=== PATIENT | male | born 1930 | race Caucasian/White ===

== ENCOUNTER 2016-12-05 22:34 | Inpatient (IN) | payer OTHER, MEDICARE ==
[~2016-12-05] VITALS: Ht 170.2 cm; Wt 77.1 kg
[~2016-12-05 22:34] MED LIST: <VITAMIN> A + D1 APP TOP; ARICEPT 5MG TAB5 MG PO; ASPIRIN81 M4 PO; ATIVAN0.5 MG PO; ATROVENT HFA 121 PUF INH; AUGMENTIN 875875 MG PO; CARDIZEM 60 MG60 MG PO; CARDIZEM CD120 MG PO; CARDIZEM30 MG PO; CIPRO 500MG TA500 MG PO; CLARITIN10 MG PO; COLACE100 MG PO; COUGH100 MG/51 PO; DIAMOX125 MG PO; DOCUSATE SOD100 MG PO; DOCUSATE SODIU100 M3 PO; DUONEB 3 MG/3 ML3 ML INH/SOL; FAMOTIDINE20 MG PO; FLOVENT HF0.044 MG/A INH; FLOVENT1 PU1 INH; FOLIC ACID 1 MG PO; FOLIC ACID1 MG PO; FORMOTEROL PO; FUROSEMIDE20 MG PO; FUROSEMIDE40 MG PO; GOOD NEIGHBOR100 M5 PO; LASIX20 MG PO; LASIX40 M1 PO; LOPRESSOR50 MG PO; MAGNESIUM OXID400 M1 PO; MAGNESIUM OXID400 MG PO; MASON NATURAL325 MG PO; METOPROLOL TART25 M1 PO; MOMETASONE0.05 MG/Ac PO; MOXIFLOXACIN H400 M2 PO; MULTIPLE VITAMI1 TAB PO; MYCOSTATIN POWD15 GM TOP; NEURONTIN100 MG PO; NEURONTIN300 MG PO; NOVAPLUS V0.09 MG/Ac INH; OXYCODONE5 MG PO; POTASSIUM CHLO20 MEQ PO; PREDNISONE 20MG20 MG PO; PREDNISONE10 MG PO; PRILOSEC20 MG PO; PROTONIX 40MG T40 MG PO; SPIRIVA 18 MCG18 MCG INH; SYMBICORT 160/41 PUF INH; TRAZODONE50 MG PO; TYLENOL TAB 32325 MG PO; VITAB121000 PO; VITAMIN B-121000 MC3 PO; ZITHROMAX Z-PA250 M1 PO
--- NOTE | 2016-12-05 22:55 | NUR ---
TO ER VIA EMS PER [facility] PATIENT HAS BEEN LETHARGIC AND HAVING INCREASED SOB TREATED BY EMS W/ ALBUTEROL X2 IV MED LOCK EST RIGHT F/A BY EMS
--- NOTE | 2016-12-05 23:16 | RADIOLOGY REPORT ---
EXAMINATION: XR PORTABLE CHEST CLINICAL INFORMATION: Hypoxia, cough, confusion COMPARISON: 03/20/2016 TECHNIQUE: Portable view of the chest was obtained. FINDINGS: Lung volumes are symmetric. Mild retrocardiac airspace opacity is noted. The right lung appears clear. No evidence of pneumothorax, pleural effusion, or pulmonary edema. Linear scarring is noted in the left midlung. The cardiac silhouette is prominent. No acute osseous findings are seen. IMPRESSION: Mild retrocardiac airspace opacity, which may reflect atelectasis or developing consolidation in the proper clinical setting.
--- NOTE | 2016-12-05 23:25 | NUR ---
BLOOD DRAWN AND SENT TO LAB. LAV,SST,BLUE,KEANE,PINK. 1ST SET OF BLOOD CULTURES.
[2016-12-05 23:32] LABS: ABSOLUTE BASOPHIL COUNT 0 /CUMM (0.0-0.2); ABSOLUTE EOSINOPHIL COUNT 0 /CUMM (0.0-0.7); ABSOLUTE GRANULOCYTE CT 3.4 /CUMM (1.4-6.5); ABSOLUTE LYMPH COUNT 0.3 /CUMM (1.2-3.4); ABSOLUTE MONOCYTE COUNT 0.6 /CUMM (0.10-0.60); BASOPHIL % 0.2 % (0.0-2.0); EOSINOPHIL % 0.9 % (0-5); HEMATOCRIT 36.5 % (42-52); MEAN CORPUSCULAR HGB 28.4 PG (27.0-31.0); MEAN CORPUSCULAR HGB CONC 31.4 G/DL (33.0-37.0); MEAN CORPUSCULAR VOLUME 90.6 FL (80.0-94.0); MEAN PLATELET VOLUME 10.6 FL (7.4-10.4); PLATELET COUNT 62 /CUMM (130-400); RBC DISTRIBUTION WIDTH 19.9 % (11.5-14.5); RED BLOOD CELL CT 4.02 /CUMM (4.70-6.10); WHITE BLOOD CELL COUNT 4.3 /CUMM (4.8-10.8)
--- NOTE | 2016-12-05 23:35 | ED DYSPNEA/ASTHMA COMPLAINT ---
History of Present Illness General Chief Complaint: Dyspnea (COPD, CHF, Other) Stated Complaint: BIBA FOR RESP DISTRESS Source: patient, old records, EMS, [facility] Exam Limitations: clinical condition Vital Signs & Intake/Output Vital Signs & Intake/Output Vital Signs Date Time Temp Pulse Resp B/P Pulse O2 O2 Flow FiO2 Ox Delivery Rate 12/06 0030 98.5 96 22 95/50 89 Nasal 3.0L Cannula 12/06 0004 94 Nasal 2.5L Cannula 12/05 2306 130/60 12/05 2257 98.8 110 26 134/90 90 Nasal 3.0L Cannula ED Intake and Output 12/06 0000 12/05 1200 Intake Total Output Total Balance Patient 180 lb Weight Allergies Coded Allergies: lisinopril (Severe, MOUTH SWELLING 02/12/16) Penicillins (Intermediate, HIVES 02/12/16) lorazepam (HALLUCINATION 02/12/16) Reconcile Medications Aspirin (Aspirin*) 81 MG TAB.CHEW 81 MG PO DAILY heart health Budesonide/Formoterol Fumarate (Symbicort 160-4.5 Mcg Inhaler) 160 MCG-4.5 MCG/ ACTUATION HFA.AER.AD 2 MCG INH BID RESP (Reported) Cyanocobalamin (Vitamin B-12) 1,000 MCG TABLET 1 TAB PO DAILY SUPPLEMENT ( Reported) Docusate Sodium 100 MG CAPSULE 1 CAP PO DAILY CONSTIPATION (Reported) Ferrous Sulfate 325 MG (65 MG IRON) TABLET 325 MG PO D SUPPLIMENT (Reported) Furosemide (Lasix) 40 MG TABLET 1 TAB PO DAILY HYPERTENSION (Reported) Magnesium Oxide 400 MG TABLET 400 MG PO DAILY electrolyte abnormality Melatonin 3 MG TABLET 3 MG PO D PRN SLEEP (Reported) Metoprolol Tartrate 25 MG TABLET 1 TAB PO BID HYPERTENSION (Reported) Mirtazapine (Remeron) 15 MG TAB.RAPDIS 7.5 MG PO D PRN SLEEP (Reported) Moxifloxacin HCl 400 MG TABLET 400 MG PO DAILY lung infection Pantoprazole Sodium (Protonix) 20 MG TABLET.DR 40 MG PO D GI (Reported) Tiotropium [place] (Spiriva) 18 MCG CAP.W.DEV 18 MCG INH D RESP (Reported) Trazodone HCl 50 MG TABLET 12.5 MG PO D PRN SLEEP (Reported) Core Measure Meds Pre-Hospital aspirin, antibiotics Triage Note: [facility] DISTRESS AND LETHARGIC RECENT ADMISSION FOR PNEUMONIA Triage Nurses Notes Reviewed? yes Onset: Just prior to arrival Duration: hour(s):, constant, continues in ED, getting worse Timing: recent history Severity: moderate Activities at Onset: rest Prior Episodes/Possible Cause: illness exposure Associated Symptoms: cough, weakness HPI: 1 month prior to admission patient was treated for community-acquired pneumonia and discharged to [facility]. Prior to admission he was noted to be more confused and hypoxia continued cough decreased activity. There is no reported fever chills nausea vomiting diarrhea abdominal pain chest pain headache dysuria rash bleeding. Past History Travel History Traveled to [place] past 21 day No Medical History Any Pertinent Medical History? 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 No Review of Systems Review of Systems Constitutional: Reports: see HPI, weakness. EENTM: Reports: no symptoms. Respiratory: Reports: see HPI, cough, short of breath. Cardiovascular: Reports: no symptoms. GI: Reports: no symptoms. Genitourinary: Reports: no symptoms. Musculoskeletal: Reports: no symptoms. Skin: Reports: see HPI, rash. Neurological/Psychological: Reports: no symptoms. Hematologic/Endocrine: Reports: no symptoms. Immunologic/Allergic: Reports: no symptoms. All Other Systems: Reviewed and Negative Physical Exam Physical Exam General Appearance: well developed/nourished, alert, awake, moderate distress Head: atraumatic, normal appearance Eyes: Bilateral: normal appearance, PERRL, EOMI. Ears, Nose, Throat: normal pharynx, dry mucous membranes Neck: normal inspection, supple, full range of motion, no midline tenderness Respiratory: chest non-tender, decreased breath sounds, accessory muscle use, rhonchi Cardiovascular: regular rate/rhythm, normal peripheral pulses, tachycardia, norml femoral pulses equa Peripheral Pulses: 4+ carotid (R), 4+ carotid (L), 2+ radial (R), 2+ radial (L) Gastrointestinal: normal bowel sounds, soft, non-tender, no organomegaly Extremities: pedal edema, bilateral stasis dermatitis Neurologic/Psych: awake, supervisor extrusion II-XII nml as tested Skin: warm/dry Lymphatic: no anterior cervical harish Core Measures ACS in differential dx? No Severe Sepsis Present: No Septic Shock Present: No Progress Differential Diagnosis: AMI, bronchitis, CHF, pneumonia Plan of Care: Orders Procedure Date/time Status Regular Diet 12/07 B Active Nothing by Mouth 12/06 B Active CBC WITHOUT DIFFERENTIAL 12/06 0600 Active BASIC ELECTROLYTES PLUS BUN&CR 12/06 0600 Active Lab Add-on Test 12/06 0218 Active SWALLOW EVALUATION 12/06 0214 Active TRC EVALUATION (GEN) 12/06 0214 Active OXYGEN SETUP (GEN) 12/06 0214 Active Saline Lock 12/06 0214 Active Pathway - chart 12/06 0214 Active House Staff 12/06 0214 Active EKG 12/06 0214 Active Code Status 12/06 0214 Active CULTURE,URINE 12/06 0205 Active STREP PNEUMO URINARY ANTIGEN 12/06 0205 Active LEGIONELLA URINARY ANTIGEN 12/06 0205 Active LOWER RESPIRATORY CULTURE 12/06 0205 Active URINALYSIS 12/06 0205 Active ARTERIAL BLOOD GAS (GEN) 12/06 0151 Active Patient Data 12/06 0057 Active OXYGEN SETUP (GEN) 12/06 0015 Active Saline Lock 12/06 0015 Active Admit to inpatient 12/06 0015 Active Vital Signs 12/06 0015 Active Activity/Ambulation 12/06 0015 Active Code Status 12/06 0015 Complete Intake & Output 12/06 0003 Active VTE Mechanical Prophylaxis 12/06 UNK Active Vital Signs 12/06 UNK Active Precautions 12/06 UNK Active Intake & Output 12/06 UNK Active Thomas, Insertion/Removal/Asses 12/06 UNK Active ETHANOL 12/05 2320 Complete BLOOD CULTURE 12/05 2247 Active TROPONIN LEVEL 12/05 2247 Complete MAGNESIUM 12/05 2247 Complete COMPREHENSIVE METABOLIC PANEL 12/05 2247 Complete CBC WITHOUT DIFFERENTIAL 12/05 224 Complete EKG 01/14 2236 Active Current Medications Sig/Linda Start time Last Medication Dose Stop Time Status Admin Acetaminophen 650 MG Q6P PRN 12/06 214 AC (Tylenol) Ibuprofen 600 MG Q6P PRN 12/06 214 CAN (Motrin) Sodium Chloride 1,000 ML Q10H 12/06 214 AC (Normal Saline 0.9%) 12/06 1214 Laboratory Tests 12/05/16 2320: Anion Gap 12, Estimated GFR 32 L, BUN/Creatinine Ratio 18.0, Glucose 99, Calcium 8.7, Magnesium 1.5 L, Total Bilirubin 1.4 H, AST 58, ALT 26, Alkaline Phosphatase 121, Troponin I 0.07, Total Protein 8.8 H, Albumin 3.6, Globulin 5.2 H, Albumin/Globulin Ratio 0.7 L, CBC w Diff NO MAN DIFF REQ, RBC 4.02 L, MCV 90.6, MCH 28.4, RDW 19.9 H, MPV 10.6 H, Gran % 79.0 H, Lymphocytes % 6.3 L, Monocytes % 13.6 H, Eosinophils % 0.9, Basophils % 0.2, Absolute Granulocytes 3.4, Absolute Lymphocytes 0.3 L, Absolute Monocytes 0.6, Absolute Eosinophils 0, Absolute Basophils 0, PUBS MCHC 31.4 L, Serum Alcohol < 10.0 12/05/16 2310: Serum Alcohol Cancelled Microbiology 12/06 204 URINE ROUT: Legionella Antigen - ORD 12/06 204 URINE ROUT: Streptococcus pneumoniae Antigen (M - ORD 12/06 204 URINE ROUT: Urine Culture - ORD 12/06 204 LOWER RESP: Respiratory Culture - ORD 12/06 204 LOWER RESP: Gram Stain - ORD 12/05 2354 BLOOD: Blood Culture - RECD 12/05 2319 BLOOD: Blood Culture - RECD CXR Impression: retrocardiac infiltrate Initial ED EKG: RBBB Rhythm Strip: sinus tachycardia Departure Departure Time of Disposition: 7 Disposition: STILL A PATIENT Condition: Stable Clinical Impression Primary Impression: Pneumonia Qualifiers: Pneumonia type: due to unspecified organism Laterality: left Lung location: lower lobe of lung Qualified Code: J18.1 - Lobar pneumonia, unspecified organism Secondary Impressions: Acute renal insufficiency Referrals: VALENTE MERAZ,FRANSISCO Peterson (PCP/Family) Departure Forms: Customer Survey General Discharge Information Admission Note Spoke With: KIRSTIE JARVIS MD Documentation of Exam: Documentation of any treatments & extenuating circumstances including Concerns Regarding Discharge (functional status, medication knowledge or non-compliance, living conditions, etc.) that warrant an admission rather than observation: Supplemental oxygen IV antibiotics IV steroids gentle IV hydration IV fluids medication adjustment continuing care discharge planning Critical Care Note Critical Care Note Critical Care Time: non-applicable
[2016-12-06] MEDS ORDERED: FERROUS SULFAT325 M3 PO (00:17)
[2016-12-06] MEDS ORDERED: PROTONIX20 M1 PO (00:19)
[2016-12-06] MEDS ORDERED: SPIRIVA18 MCG INH (00:20)
[2016-12-06] MEDS ORDERED: SYMBICORT 16010.2 GM INH (00:22)
[2016-12-06] MEDS ORDERED: REMERON15 M2 PO (00:23)
[2016-12-06] MEDS ORDERED: TRAZODONE HCL50 M1 PO (00:27)
[2016-12-06] MEDS ORDERED: MELATONIN3 M4 PO (00:28)
--- NOTE | 2016-12-06 00:50 | NUR ---
O2 SAT 89-90 % NC INCRESED TO 4L/MIN SAT 93-94 %
--- NOTE | 2016-12-06 01:08 | History & Physical ---
[facility] 0108: General Information and HPI MD Statement: I have seen and personally examined SOURAV WARD and documented this H&P. The patient is a 86 year old M who presented with a patient stated chief complaint of [desaturation, lethargy, upper extremity twicthing]. Source of Information: patient, [facility] Exam Limitations: unable to give history, clinical condition History of Present Illness: 86-year-old male, senior living resident, with PMH of paroxysmal atrial fibrillation, HTN, HFPeF, COPD on 3L oxygen, myelodysplastic syndrome, history of alcohol dependence/withdrawal, hepatitis C, cor pulmonale, presented for lethargy, desaturation, and upper extremities twiching. Pt was lethargic, and unable to stay awake for history and physical exam. Most of the history was obtained from W[facility], previous medical records. The resident spoke with the nurse from the senior living. At baseline, pt is verbal and able to communicate. Today, his O2 sat went as low as 72%, and he has new upper extremities twitching. He has hx of PNA, and sputum has grown moraxella catarrhalis, pantoea agglomerans, serratia marcescens, streptococcus pneumoniae, and yeast in the past. He was recently admitted at [facility] on Nov 03, 2016, for pneumonia, for which he was given moxifloxacin, as per ED physician. His last echo was in February 2016, and showed EF 50-55%. Allergies/Medications Allergies: Coded Allergies: lisinopril (Severe, MOUTH SWELLING 02/12/16) Penicillins (Intermediate, HIVES 02/12/16) lorazepam (HALLUCINATION 02/12/16) Home Med list Aspirin (Aspirin*) 81 MG TAB.CHEW 81 MG PO DAILY heart health Budesonide/Formoterol Fumarate (Symbicort 160-4.5 Mcg Inhaler) 160 MCG-4.5 MCG/ ACTUATION HFA.AER.AD 2 MCG INH BID RESP (Reported) Cyanocobalamin (Vitamin B-12) 1,000 MCG TABLET 1 TAB PO DAILY SUPPLEMENT ( Reported) Docusate Sodium 100 MG CAPSULE 1 CAP PO DAILY CONSTIPATION (Reported) Ferrous Sulfate 325 MG (65 MG IRON) TABLET 325 MG PO D SUPPLIMENT (Reported) Furosemide (Lasix) 40 MG TABLET 1 TAB PO DAILY HYPERTENSION (Reported) Melatonin 3 MG TABLET 3 MG PO D PRN SLEEP (Reported) Metoprolol Tartrate 25 MG TABLET 1 TAB PO BID HYPERTENSION (Reported) Mirtazapine (Remeron) 15 MG TABLET 7.5 MG PO AT BEDTIME PRN SLEEP (Reported) Pantoprazole Sodium (Protonix) 20 MG TABLET.DR 40 MG PO D GI (Reported) Tiotropium [place] (Spiriva) 18 MCG CAP.W.DEV 18 MCG INH D RESP (Reported) Trazodone HCl 50 MG TABLET 12.5 MG PO D PRN SLEEP (Reported) Past History Travel History Traveled to [place] past 21 day No Medical History Neurological: SHINGLES EENT: NONE Cardiovascular: AFIB, hypertension, hyperlipidemia, HFPeF Respiratory: COPD, MRSA PNA (-MRSA) Gastrointestinal: peptic ulcer disease Hepatic: hepatitis C Renal: NONE Musculoskeletal: NONE Psychiatric: alcohol dependence, IV drug abuse, 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 Extended Care Facility Services at Home: Oxygen Primary Language: [place] Living Will? no Power of Machine Lead Burner/HCP? no Functional Ability ADLs Needs Assist: dressing, eating, toileting, bathing. Ambulation: wheelchair IADLs Independent: telephone. Needs Assist: shopping, housework, finances, food prep, transportation. Unknown: medication admin. Review of Systems Review of Systems Constitutional: Reports: see HPI (unable to obtain ROS). Exam & Diagnostic Data Last 24 Hrs of Vital Signs/I&O Vital Signs Date Time Temp Pulse Resp B/P Pulse O2 O2 Flow FiO2 Ox Delivery Rate 12/06 0245 89 92 12/06 225 99.4 94 32 100/80 89 Nasal 4.0L Cannula 12/06 219 94 BIPAP 40% 12/06 29 98.5 96 22 95/50 89 Nasal 3.0L Cannula 12/06 0004 94 Nasal 2.5L Cannula 12/056 130/60 01/14 2257 98.8 110 26 134/90 90 Nasal 3.0L Cannula Intake & Output 12/06 0800 12/06 0000 12/05 1600 Intake Total Output Total Balance Patient 81.647 kg Weight Physical Exam General Appearance lethargic, unable to stay awake for history and physical exam Skin chronic venous stasis changes on both lower extremities. HEENT Mucous Membr. moist/pink, pupils pinpoint Neck JVD noted Cardiovascular Regular Rate, Normal S1, Normal S2 Lungs rhonchi heard, no wheezing. Abdomen Normal Bowel Sounds, noted some guarding especially in the lower abdomen. Neurological unable to assess. not following commands. Extremities cold extremities. , no palpable pulse on the right dorsalis pedis. 2 + left dorsalis pedis Last 24 Hrs of Labs/Rocco: Laboratory Tests 12/06/16 0230: Urinalysis MANY H, Urine Color RAYSHAWN, Urine Clarity CLEAR, Urine pH 5.5, Ur Specific [place] >= 1.030, Urine Protein 30 H, Urine Ketones TRACE H, Urine Nitrite NEG, Urine Bilirubin NEG@ICTO, Urine Urobilinogen 1.0, Ur Leukocyte Esterase NEG, Ur Microscopic SEDIMENT EXAMINED, Urine RBC 1-3, Urine WBC 1-3 H, Ur Epithelial Cells FEW, Hyaline Casts > 75 H, Urine Mucus MOD H, Urine Hemoglobin NEG, Urine Glucose NEG 12/06/16 0200: pH 7.30 *L, pCO2 69 *H, pO2 65 L, HCO3 34 H, ABG O2 Sat (Measured) 90.0 L, P- 50 (Temp Corrected) N, Carboxyhemoglobin 0.7 L, O2 Concentration % 3L, O2 Delivery Method N/C, Phlebotomy Draw Site RIGHT BRACHIAL 12/05/16 2320: Anion Gap 12, Estimated GFR 32 L, BUN/Creatinine Ratio 18.0, Glucose 99, Calcium 8.7, Phosphorus 4.8 H, Magnesium 1.5 L, Total Bilirubin 1.4 H, Direct Bilirubin 1.1 H, AST 58, ALT 26, Alkaline Phosphatase 121, Troponin I 0.07, Pro -B-Natriuretic Pept 47539 H, Total Protein 8.8 H, Albumin 3.6, Globulin 5.2 H , Albumin/Globulin Ratio 0.7 L, CBC w Diff NO MAN DIFF REQ, RBC 4.02 L, MCV 90.6, MCH 28.4, RDW 19.9 H, MPV 10.6 H, Gran % 79.0 H, Lymphocytes % 6.3 L, Monocytes % 13.6 H, Eosinophils % 0.9, Basophils % 0.2, Absolute Granulocytes 3.4, Absolute Lymphocytes 0.3 L, Absolute Monocytes 0.6, Absolute Eosinophils 0 , Absolute Basophils 0, PUBS MCHC 31.4 L, Serum Alcohol < 10.0 12/05/16 2310: Serum Alcohol Cancelled Microbiology 12/06 229 URINE ROUT: Legionella Antigen - RES 12/06 023 URINE ROUT: Streptococcus pneumoniae Antigen (M - RES 12/06 229 URINE ROUT: Urine Culture - RES 12/06 020 LOWER RESP: Respiratory Culture - ORD 12/06 204 LOWER RESP: Gram Stain - ORD 12/05 2354 BLOOD: Blood Culture - RECD 12/05 2319 BLOOD: Blood Culture - RECD Assessment/Plan Assessment: 86-year-old male, senior living resident, with PMH of paroxysmal atrial fibrillation, HTN, HFPeF, COPD on 3L oxygen, MDS, history of alcohol dependence/ withdrawal, hepatitis C, cor pulmonale, presented for lethargy, desaturation, and upper extremities twiching. # Acute on chronic hypercapneic and hypoxic respiratory failure, secondary to pneumonia vs unintentional opiate overdose - Given 1 time ceftaz and azithro in ED - Given 1 time 125 mg solumedrol in ED - ABG 7.30/69H/65L/34 * Start moxifloxacin * Follow BCX2, LRC, urine legionella, urine strep pneumo, UA, UC * Follow urine toxicology, serum alcohol < 10 * Place on BIPAP, * pt need a sitter due to hx of agitation with bipap in the past * Repeat ABG 5am * Consider head CT if lethargy does not improve * Obtain consult with Dr. Bajwa in am * TRC/nebs * Mucinex 600bid * NPO due to lethargy. Swallow evaluation in am # Upper extremities twiching, unlikely seizure - Mag 1.5 * Replete mag with 1 gm mag sulfate * Consider neuro consult # Abdominal tenderness - T bili 1.4 H, direct bili 1.1 H * Consider CT abd and pelvis if continues to be tender * Follow bilirubin levels * Consider RUQ US # Acute on chronic heart failure, hypotension - Pro-BNP 57027 - Last Echo February 2016, EF 55% * Consider repeat echo * Continue lasix 40 daily (watch cr and BP) * Hold metoprolol if SBP <100 * Received about 300ml of NS * cardio consult in am # Acute kidney injury - BUN/Cr: 36H/2H - Jul 2016: 20/1.2 * Follow kidney functions # Pancytopenia due to myelodysplastic syndrome # Hypertension, paroxysmal atrial fibrillation * Continue metoprolol 25 bid (hold if hypotensive) # Other home meds * Continue docusate 100 daily * Continue pantoprazole 40 mg daily * Continue aspirin 81mg daily * Continue trazodone 12.5mg, mirtazapine 7.5 mg, melatonin 3 mg at bedtime Diet: NPO due to lethargy DVT ppx: [facility] FULL CODE As Ranked By This Provider Problem List: 1. Acute respiratory failure 2. Hypomagnesemia 3. Acute renal insufficiency Core Measures/Miscellaneous Acute Coronary Syndrome ACS Diagnosis: No Cerebrovascular Accident CVA/TIA Diagnosis: No Congestive Heart Failure CHF Diagnosis: Yes Venous Thromboembolism VTE Risk Factors: Acute medical illness, Age > 40 VTE Prophylaxis Ordered Inpt: Mechanical (ALPS/TEDS) [facility] d/t: No contraindications No VTE Pharm Prophylaxis d/t: No contraindications, Medical contraindication VTE Diagnosis: No VTE Type: NONE VTE Confirmed by (Test): NONE Severe Sepsis Severe Sepsis Present: No Septic Shock Septic Shock Present: No Miscellaneous Documentation Attending Case Discussed With: MATHEUS MERAZ,KIRSTIE Primary Care Physician: FRANSISCO VICTOR MD Patient sees these Specialists Dr Bajwa pulmonology Level of Patient Care: General Medicine SA SHAJIUD 12/06/16 0512: Resident Review Statement Resident Statement: examined this patient, discussed with international organizer, agreed with international organizer, reviewed EMR data (avail), discussed with nursing, reviewed images, amended to note Other Findings: This is 86-year-old male, senior living resident, with past medical history of paroxysmal atrial fibrillation, hypertension, history of alcohol dependence/ withdrawal, hepatitis C, cor pulmonale, COPD on 3L oxygen, myelodysplastic syndrome, presented for lethargy, difficulty breathing, desaturation, and upper extremities twiching. According to the senior living staff patient was desaturated to 72% and altered mental status and he become nonverbal. According to them his baseline is alert, oriented 3 very verbal. Multiple attempts together history from the patient or asking the patient to follow command was unsuccessful. Last admission was in February 2016 for lightheaded loss of consciousness and head trauma. Physical examination, lab and imaging as above. Problem list: -Hospital-acquired pneumonia -Acute and chronic respiratory failure -Altered mental status due to acute on chronic respiratory failure -Acute kidney injury -Pancytopenia due to MDS -Hypomagnesemia Plan: -Admit patient to general medicine floor -Vitals every shift, strict AMERICA's, aspiration precaution -Start the patient on IV moxifloxacin daily -TRC nebs as needed, repeat EKG -Keep the patient nothing by mouth, swallowing evaluation. -Blood, urine and sputum culture, strep and Legionella urine antigen -Place the patient on BiPAP, repeat ABG 2 hours after -1 GM IV magnesium supplement and recheck magnesium in the morning -Repeat CBC, basic electrolyte in the morning, check INR -Continue home medication including Spiriva, Symbicort -Pulmonary consultation, cardiology consultation in a.m. -One-to-one sitter during BiPAP session -Pain pathway -DVT prophylaxis: Alps -Full code MATHEUS MERAZ, [facility] 12/06/16 0613: Attending MD Review Statement Attending Statement Attending MD Statement: examined this patient, discuss w/resident/PA/[employer], agreed w/resident/PA/[employer] Attending Assessment/Plan: 86 yo M from [facility], with h/o Hep C, alcohol abuse, HTN, COPD on 3L, pulmonary HTN, paroxysmal Afib, ?MDS, previous biventricular heart failure, last admitted for COPDE (February 2016) is sent in for lethargy, tachypnea and hypoxia ( desated to 72% at SNF). Patient was noted to unresponsive on our evaluation. Stat ABG showed respiratory acidosis with hypoxemia, so he was placed on Bipap. Patient did not provide any info. Per ER physician, patient was recently admitted to [facility] (Oct 2016) for pneumonia. Previous sputum has grown moraxella catarrhalis, pantoea agglomerans, serratia marcescens, streptococcus pneumoniae. Vitals: afebrile, tachycardic, BP 100/80, sats 89% on 4L, tachypneic. Exam: noted to have upper extremity twitching, awake, opens eyes to verbal stimuli, pupils are 2 mm sluggishly RTL, Chest b/l rhonchi, no wheeze. LE: difficult to palpate dorsalis pedis on RLE. No LE edema. Labs: WBC 4.3, Plt 62, bicarb 39, BUN 36, creat 2.0, Mag 1.5, proBNP 98325, UA/Utox neg, AB.30/69/65/34. CXR: mild retrocardiac opacity. Echo (2016): EF 50-55%, flattened septum with RV pressure overload. RVSP 60 mmHg. 1. Acute on chronic hypoxic and hypercarbic respiratory failure 2/2 possible HCAP and severe pulmonary hypertension with cor pulmonale due to severe COPD. Cannot rule out right heart failure. Daily weight, strict I/O, panculture, TRC nebs, recheck ABG in 2 hours, IV moxifloxacin based on previous sputum cultures, Pulm and Cardio consult in AM. Sitter protocol while patient is on Bipap. CT head in AM. NPO for now. Serial EKG to rule out ACS. Replete electrolytes. Holding off on IV lasix for now. 2. RYAN. Gentle hydration and recheck BUN/creat. Resume home lasix once able. 3. Thrombocytopenia/pancytopenia 2/2 MDS. DVT ppx Alps. Full code.
--- NOTE | 2016-12-06 01:26 | NUR ---
HOUSESTAFF IN TO EVALUATE
--- NOTE | 2016-12-06 01:40 | NUR ---
REPORT GIVEN N/S HUNG AT 100 ML/HR
--- NOTE | 2016-12-06 01:49 | NUR ---
PT'S ASSIGNMENT 234
[2016-12-06 02:26] VITALS: BP 100/80
--- NOTE | 2016-12-06 04:07 | NUR ---
LATE ENTRY NURSING NOTE: PT ARRIVED TO A VIA STRETCHER @ 0200. PT DROWSY/AROUSABLE. UNABLE TO FOLLOW COMMAND, SPEECH GARBLED. BREIF IN PLACE FOR INCONTINENCE - SATURATED. 3L NC IN PLACE - O2SAT 88% UPON ARRIVAL. O2 INCREASED TO 5L NC - RESP MADE AWARE. MD MYRON SHEEHAN, MD REN GIRARD BOTH REPORTED TO BEDSIDE. ORDER PLACED FOR MANCINI, MANCINI INSERTED. ADMISSION ASSESSMENT COMPLETED. MULTIPLE SCABS NOTED TO BILAT SHOULDERS AND R GROSSMAN. COCCYX FOUND TO BE PURPLE/NON BLANCHABLE. WOUND CONSULT PLACED W NIKI. NO R PEDAL PULSE NOTED - DOPPLE USED & AUDIBLE PULSE FOUND. RR @ 30 W USE OF ACCESSORY MUSCLES - MD AWARE. PT TRANSITIONED TO BIPAT 40%. ABG COMPLETED. RN WILL CONTINUE TO MONITOR.
--- NOTE | 2016-12-06 06:07 | Admission Certification ---
Admission Certification Certification Statement - As attending physician, I certify that at the time of - admission, based on clinical presentation, severity of - symptoms, need for further diagnostic testing and - therapeutic interventions, and risk of adverse outcomes - without in-hospital treatment, in my clinical assessment, - this patient requires an acute hospital stay for a minimum - of two nights or longer. I have also considered psychsocial - factors such as support system, advanced age, financial - issues, cognitive issues, and failed out-patient treatments, - past re-admission history, safety of patient, and lack of - compliance as applicable. Specific rationale supporting this admission is: Acute on chronic hypoxemic and hypercarbic respiratory failure.
--- NOTE | 2016-12-06 06:48 | NUR ---
NURSING NOTE: PER MD MYRON SHEEHAN, STOP IVF. PT'S BP 98/58 HR 72 TEMP 97.4 RR 28 O2SAT 92% ON 40% BIPAP. MD MYRON SHEEHAN AWARE. RN WILL MONITOR.
[2016-12-06 06:55] VITALS: BP 98/58
--- NOTE | 2016-12-06 07:30 | NUR ---
PT ALERT AND PULLING OFF BIPAP AND COMBATIVE WHEN ATTEMPTING TO OBTAIN EKG DESPITE SITTER AT BEDSIDE. MD NOTIFIED, BILATERAL UPPER RESTRAINTS ORDERED, AND PLACED ON PT. WILL CONTINUE TO MONITOR.
--- NOTE | 2016-12-06 07:45 | NUR ---
PT LEFT FLOOR VIA STRETCHER TO CT SCAN, SITTER AT BEDSIDE, ON 45% VENTI MASK O2 @ 91%.
--- NOTE | 2016-12-06 08:00 | NUR ---
STRING TOP SEALER NOTIFIED THIS RN, PT INCREASINGLY CONBATIVE, SWINGING FISTS AND THREATENING STAFF. UNABLE TO OBTAIN CT SCAN, PT ARRIVED BACK TO FLOOR. BIPAP PLACED ON PT @ 40% AND BILATERAL UPPER WRIST RESTRAINTS APPLIED, SITTER @ BEDSIDE. MD MCKEON AWARE. WILL CONTINUE TO MONITOR
[2016-12-06 08:33] LABS: PT 13.4 SEC (9.4-12.5)
[2016-12-06 10:22] LABS: ABSOLUTE BASOPHIL COUNT 0 /CUMM (0.0-0.2); ABSOLUTE EOSINOPHIL COUNT 0 /CUMM (0.0-0.7); ABSOLUTE GRANULOCYTE CT 2.2 /CUMM (1.4-6.5); ABSOLUTE LYMPH COUNT 0.1 /CUMM (1.2-3.4); ABSOLUTE MONOCYTE COUNT 0 /CUMM (0.10-0.60); BASOPHIL % 0 % (0.0-2.0); EOSINOPHIL % 0.1 % (0-5); GRANULOCYTE % 93.2 % (42.2-75.2); HEMATOCRIT 33.4 % (42-52); MEAN CORPUSCULAR HGB 28.8 PG (27.0-31.0); MEAN PLATELET VOLUME 10.7 FL (7.4-10.4); PLATELET COUNT 54 /CUMM (130-400); RBC DISTRIBUTION WIDTH 19.7 % (11.5-14.5); RED BLOOD CELL CT 3.71 /CUMM (4.70-6.10); WHITE BLOOD CELL COUNT 2.4 /CUMM (4.8-10.8)
--- NOTE | 2016-12-06 10:33 | NUR ---
PT UNCOOPERATIVE, ASP RISK, NPO, HELD AM PO MEDS PER MD MCKEON. WILL CONTINUE TO MONITOR.
--- NOTE | 2016-12-06 11:24 | Cons- Pulmonary ---
General Information and HPI Consulting Request Date of Consult: 12/06/16 Requested By: med team History of Present Illness: 86-year-old male, detention resident, with PMH of paroxysmal atrial fibrillation, HTN, HFPeF, COPD on 3L oxygen, myelodysplastic syndrome, history of alcohol dependence/withdrawal, hepatitis C, cor pulmonale, presented for lethargy, desaturation, and upper extremities twiching. Pt was lethargic, and unable to stay awake for history and physical exam. Most of the history was obtained from [facility], previous medical records. The resident spoke with the nurse from the detention. At baseline, pt is verbal and able to communicate. Today, his O2 sat went as low as 72%, and he has new upper extremities twitching. He has hx of PNA, and sputum has grown moraxella catarrhalis, pantoea agglomerans, serratia marcescens, streptococcus pneumoniae, and yeast in the past. His last echo was in February 2016, and showed EF 50-55%. Review of Systems Constitutional: Reports: see HPI (unable to obtain ROS). Allergies/Medications Allergies: Coded Allergies: lisinopril (Severe, MOUTH SWELLING 02/12/16) Penicillins (Intermediate, HIVES 02/12/16) lorazepam (HALLUCINATION 02/12/16) Home Med List: Aspirin (Aspirin*) 81 MG TAB.CHEW 81 MG PO DAILY heart health Budesonide/Formoterol Fumarate (Symbicort 160-4.5 Mcg Inhaler) 160 MCG-4.5 MCG/ ACTUATION HFA.AER.AD 2 MCG INH BID RESP (Reported) Cyanocobalamin (Vitamin B-12) 1,000 MCG TABLET 1 TAB PO DAILY SUPPLEMENT ( Reported) Docusate Sodium 100 MG CAPSULE 1 CAP PO DAILY CONSTIPATION (Reported) Ferrous Sulfate 325 MG (65 MG IRON) TABLET 325 MG PO D SUPPLIMENT (Reported) Furosemide (Lasix) 40 MG TABLET 1 TAB PO DAILY HYPERTENSION (Reported) Melatonin 3 MG TABLET 3 MG PO D PRN SLEEP (Reported) Metoprolol Tartrate 25 MG TABLET 1 TAB PO BID HYPERTENSION (Reported) Mirtazapine (Remeron) 15 MG TABLET 7.5 MG PO AT BEDTIME PRN SLEEP (Reported) Pantoprazole Sodium (Protonix) 20 MG TABLET.DR 40 MG PO D GI (Reported) Tiotropium Valdez (Spiriva) 18 MCG CAP.W.DEV 18 MCG INH D RESP (Reported) Trazodone HCl 50 MG TABLET 12.5 MG PO D PRN SLEEP (Reported) Review of Systems Review of Systems Constitutional: Reports: see HPI. 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 Extended Care Facility Services at Home: Oxygen Primary Language: Welsh Smoking Status: Unknown If Ever Smoked Living Will? no Power of Procurement Intern/HCP? no Functional Ability ADLs Needs Assist: dressing, eating, toileting, bathing. Ambulation: wheelchair IADLs Independent: telephone. Needs Assist: shopping, housework, finances, food prep, transportation. Unknown: medication admin. Exam & Diagnostic Data Last 24 Hrs of Vital Signs/I&O Vital Signs Date Time Temp Pulse Resp B/P Pulse O2 O2 Flow FiO2 Ox Delivery Rate 12/06 1012 110/60 12/06 0800 92 BIPAP 40% 12/06 0726 91 12/06 0655 97.3 72 28 98/58 92 BIPAP 12/06 0415 24 96 BIPAP 12/06 0245 89 92 12/06 0226 99.4 94 32 100/80 89 Nasal 4.0L Cannula 12/06 0220 94 BIPAP 40% 12/06 0030 98.5 96 22 95/50 89 Nasal 3.0L Cannula 12/06 0004 94 Nasal 2.5L Cannula 12/05 2306 130/60 12/05 2257 98.8 110 26 134/90 90 Nasal 3.0L Cannula Intake & Output 12/06 1600 12/06 0800 12/06 0000 Intake Total 450 Output Total 200 Balance 250 Intake, IV 450 Intake, Oral 0 Number 0 Bowel Movements Output, Urine 200 Patient 180 lb Weight Last 48 Hrs of Labs/Rocco: Laboratory Tests 12/06/16 0934: Lactic Acid 1.6, CBC w Diff MAN DIFF ORDERED, RBC 3.71 L, MCV 90.0, MCH 28.8, RDW 19.7 H, MPV 10.7 H, Gran % 93.2 H, Lymphocytes % 5.4 L, Monocytes % 1.3 L, Eosinophils % 0.1, Basophils % 0 L, Absolute Granulocytes 2.2, Absolute Lymphocytes 0.1 L, Absolute Monocytes 0 L, Absolute Eosinophils 0, Absolute Basophils 0, Platelet Estimate DECREASED, Polychromasia 1+, Basophilic Stippling 1+, Anisocytosis 1+, Stomatocytes 1+, PUBS MCHC 32.0 L 12/06/16 0741: Troponin I 0.06 12/06/16 0741: Anion Gap 11, Estimated GFR 34 L, BUN/Creatinine Ratio 21.1, Magnesium 1.8, Total Bilirubin 1.1, Direct Bilirubin 1.0 H, AST 43, ALT 23, Alkaline Phosphatase 101, Total Protein 7.5, Albumin 2.9 L, PT 13.4 H, INR 1.28 H 12/06/16 0530: pH 7.28 *L, pCO2 71 *H, pO2 91, HCO3 33 H, ABG O2 Sat (Measured) 96.0, P-50 ( Temp Corrected) N, Carboxyhemoglobin 0.2 L, O2 Concentration % .40, Respiration Rate 24, O2 Delivery Method BIPAP, Vent Mode ST, Expiratory Pressure 6, Inspiratory Pressure 18, Phlebotomy Draw Site RIGHT RADIAL 12/06/16 0230: Urine Opiates Screen 255.00, Methadone Screen 49, Barbiturate Screen < 60, Ur Phencyclidine Scrn < 6.00, Amphetamines Screen < 100, U Benzodiazepines Scrn < 85, Urine Cocaine Screen < 50, Urine Cannabis Screen < 5.00, Urinalysis MANY H, Urine Color RAYSHAWN, Urine Clarity CLEAR, Urine pH 5.5, Ur Specific [place] >= 1.030, Urine Protein 30 H, Urine Ketones TRACE H, Urine Nitrite NEG, Urine Bilirubin NEG@ICTO, Urine Urobilinogen 1.0, Ur Leukocyte Esterase NEG, Ur Microscopic SEDIMENT EXAMINED, Urine RBC 1-3, Urine WBC 1-3 H, Ur Epithelial Cells FEW, Hyaline Casts > 75 H, Urine Mucus MOD H, Urine Hemoglobin NEG, Urine Glucose NEG 12/06/16 0200: pH 7.30 *L, pCO2 69 *H, pO2 65 L, HCO3 34 H, ABG O2 Sat (Measured) 90.0 L, P- 50 (Temp Corrected) N, Carboxyhemoglobin 0.7 L, O2 Concentration % 3L, O2 Delivery Method N/C, Phlebotomy Draw Site RIGHT BRACHIAL 12/05/16 2320: Anion Gap 12, Estimated GFR 32 L, BUN/Creatinine Ratio 18.0, Glucose 99, Calcium 8.7, Phosphorus 4.8 H, Magnesium 1.5 L, Total Bilirubin 1.4 H, Direct Bilirubin 1.1 H, AST 58, ALT 26, Alkaline Phosphatase 121, Troponin I 0.07, Pro -B-Natriuretic Pept 29061 H, Total Protein 8.8 H, Albumin 3.6, Globulin 5.2 H , Albumin/Globulin Ratio 0.7 L, CBC w Diff NO MAN DIFF REQ, RBC 4.02 L, MCV 90.6, MCH 28.4, RDW 19.9 H, MPV 10.6 H, Gran % 79.0 H, Lymphocytes % 6.3 L, Monocytes % 13.6 H, Eosinophils % 0.9, Basophils % 0.2, Absolute Granulocytes 3.4, Absolute Lymphocytes 0.3 L, Absolute Monocytes 0.6, Absolute Eosinophils 0 , Absolute Basophils 0, PUBS MCHC 31.4 L, Serum Alcohol < 10.0 12/05/16 2310: Serum Alcohol Cancelled Assessment/Plan Impression/Plan: SIGNIFICANT DATA Chest x-ray showed? Retrocardiac opacity probable atelectasis versus consolidation Previous CT scan of the chest had shown bilateral infiltrates with emphysema Other blood work reviewed creatinine up to 2 no down to 1.9 baseline creatinine appears to be 1.2 potassium was 5.3 his bicarbonate baseline was 39 now down to 36 anion gap 11 his previous uric acid was high his liver enzymes appears unremarkable patient does have gallstones his BNP was 14,000 which was persistently elevated He does have persistent leukopenia with white count of 2.4 hemoglobin is 10.7 and he has significantly decreased platelets which has been consistent with previous episodes His ABG showed 7. initial ABG was 7. Previous sputum culture had Serratia which appeared to be multiresistant to multiple antibiotics including including ceftaz Physical Exam General Appearance lethargic, unable to stay awake for history and physical exam , does squeeze rt side and unable to squeeze left side Skin chronic venous stasis changes on both lower extremities. HEENT Mucous Membr. moist/pink, pupils pinpoint Neck JVD noted Cardiovascular Regular Rate, Normal S1, Normal S2 Lungs rhonchi heard, no wheezing. Abdomen Normal Bowel Sounds, noted some guarding especially in the lower abdomen. Neurological unable to assess. not following commands. Extremities cold extremities. , no palpable pulse on the right dorsalis pedis. 2 + left dorsalis pedis IMPRESSION This is a gentleman with severe COPD, significant alcohol use, previous history of biventricular heart failure, very severe pulmonary hypertension which appears to be secondarily related to severe COPD and previous left heart dysfunction from alcohol, hyponatremia, previous myelodysplastic syndrome, hence immunosuppressed, chronic thrombocytopenia, has the issues * Acute hypercarbic and hypoxic resp failure in a pt with endstage lung disease with left lower lobe infiltrate with worsening mental status. He has had recurrent hospitalizations and [facility], with previous history of multidrug resistant organisms * History of sig etoh and myelodysplasia and hence immunosuppressed * Severe COPD, mild wheezing * Worsening mental status due to hypercarbia and has myoclonic jerks needs to be followed * Severe pulmonary hypertension with cor pulmonale due to severe COPD and as well as previous left heart dysfunction * Pervious etoh withdrawal syndrome * CKD stage 4 with crystal * Electrolyte abnormalities * Previous history of nonischemic cardiomyopathy with low ejection fraction which seems to have improved recently, wiht previous history of afib, now ekg showing prob afib and pt now currently not a candidate for anticoag * Previous qtc prolongation RECOMMENDATION * Continue BiPAP * Assessment we'll status * Repeat ABG later * Swab nose for mrsa * One dose of vanco * IV moxi and if not avilable iv meropenam * Iv solumedrom 40 qd for now * Keep the head of bed elevated * Await blood cultures * Obtain a CT of the head when patient is able * Repeat EKG in the morning * Check his renal function this evening to evaluate his potassium * If these worsen needs to go to the ICU * Check his QT intervel daily * Replace mag today iv * Prob poor to guarded * Need to discuss goals of care with his poa Consult Acknowledgment - Thank you for your consult request.
[2016-12-06 11:57] VITALS: BP 110/60
--- NOTE | 2016-12-06 11:57 | NUR ---
SPEECH THERAPY: CONSULT FOR SWALLOW EVAL RECEIVED. CHART REVIEWED. PT ON BIPAP AT THIS TIME. UNABLE TO BE SEEN FOR SWALLOW EVAL. ST WILL F/U.
--- NOTE | 2016-12-06 12:10 | Cons- Cardiology ---
General Information and HPI Consulting Request Date of Consult: 12/06/16 Requested By: MATHEUS MERAZ,KIRSTIE Reason for Consult: Shortness of breath. Source of Information: old records Exam Limitations: unable to give history, clinical condition History of Present Illness: Mr. Adam Hendrix is an 86 year old male with a history of hypertension treated with beta radha and diuretic therapy, dyslipidemia, former heavy tobacco use, severe oxygen dependent COPD, severe pulmonary hypertension, history of previous intravenous drug abuse, heavy EtOH use, hepatitis C, myelodysplastic syndrome, pancytopenia, conduction disease (first-degree AV block, LAFB, RBBB) previous syncope, heart failure with previously documented LV dysfunction by echocardiography December 2014/nuclear stress testing July 2015 with subsequently documented preserved left ventricular systolic function, mild aortic stenosis, moderate concentric left ventricular hypertrophy, and presumed diastolic dysfunction who presented from his [facility] via ambulance for lethargy and progressive shortness of breath with tachypnea and CXR findings c/w mild retrocardiac airspace opacity, reflecting atelectasis vs a developing consolidation, a significantly elevated NT-PRO BNP, and evidence of acute kidney injury. Mr. Dixon can give no reliable history due to his clinical status, so the entire history is obtained from the medical record. Allergies/Medications Allergies: Coded Allergies: lisinopril (Severe, MOUTH SWELLING 02/12/16) Penicillins (Intermediate, HIVES 02/12/16) lorazepam (HALLUCINATION 02/12/16) Home Med List: Aspirin (Aspirin*) 81 MG TAB.CHEW 81 MG PO DAILY heart health Budesonide/Formoterol Fumarate (Symbicort 160-4.5 Mcg Inhaler) 160 MCG-4.5 MCG/ ACTUATION HFA.AER.AD 2 MCG INH BID RESP (Reported) Cyanocobalamin (Vitamin B-12) 1,000 MCG TABLET 1 TAB PO DAILY SUPPLEMENT ( Reported) Docusate Sodium 100 MG CAPSULE 1 CAP PO DAILY CONSTIPATION (Reported) Ferrous Sulfate 325 MG (65 MG IRON) TABLET 325 MG PO D SUPPLIMENT (Reported) Furosemide (Lasix) 40 MG TABLET 1 TAB PO DAILY HYPERTENSION (Reported) Melatonin 3 MG TABLET 3 MG PO D PRN SLEEP (Reported) Metoprolol Tartrate 25 MG TABLET 1 TAB PO BID HYPERTENSION (Reported) Mirtazapine (Remeron) 15 MG TABLET 7.5 MG PO AT BEDTIME PRN SLEEP (Reported) Pantoprazole Sodium (Protonix) 20 MG TABLET.DR 40 MG PO D GI (Reported) Tiotropium [place] (Spiriva) 18 MCG CAP.W.DEV 18 MCG INH D RESP (Reported) Trazodone HCl 50 MG TABLET 12.5 MG PO D PRN SLEEP (Reported) Review of Systems Review of Systems: A 14 point system review was attempted, but was unsuccessful given the patient's clinical status. 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 Extended Care Facility Services at Home: Oxygen Primary Language: Slovenian Smoking Status: Unknown If Ever Smoked Living Will? no Power of Bench Carpenter/HCP? no Functional Ability ADLs Needs Assist: dressing, eating, toileting, bathing. Ambulation: wheelchair IADLs Independent: telephone. Needs Assist: shopping, housework, finances, food prep, transportation. Unknown: medication admin. Exam & Diagnostic Data Vital Signs and I&O Vital Signs Date Time Temp Pulse Resp B/P Pulse O2 O2 Flow FiO2 Ox Delivery Rate 12/06 1012 110/60 12/06 0800 92 BIPAP 40% 12/06 0726 91 12/06 0655 97.3 72 28 98/58 92 BIPAP 12/06 0415 24 96 BIPAP 12/06 0245 89 92 12/06 0226 99.4 94 32 100/80 89 Nasal 4.0L Cannula 12/06 0220 94 BIPAP 40% 12/06 0030 98.5 96 22 95/50 89 Nasal 3.0L Cannula 12/06 0004 94 Nasal 2.5L Cannula 12/05 2306 130/60 12/05 2257 98.8 110 26 134/90 90 Nasal 3.0L Cannula Intake & Output 12/06 0812/06 0000 12/05 1600 12/05 0800 12/05 0000 Intake Total 450 Output Total 200 Balance 250 Intake, IV 450 Intake, Oral 0 Number 0 Bowel Movements Output, Urine 200 Patient 180 lb Weight Physical Exam: Elderly, unkempt appearing male in no acute distress with BiPAP mask in place. Vital signs: See above. HEENT: Normocephalic, atraumatic, moist mucous membranes. Neck: No JVD, no bruits. Lungs: Decreased breath sounds bilaterally, scattered rhonchi. Heart: S1, S2 (irregularly, irregular) with soft (grade 1-2/6) systolic murmur. No gallop or rub appreciated. PMI not well felt. Abdomen: Soft, nontender, positive bowel sounds. Extremities: No edema. Labs/Rocco Results: Laboratory Tests 12/06 12/06 12/06 0934 0741 0741 Chemistry Sodium (137 - 145 mmol/L) 140 Potassium (3.5 - 5.1 mmol/L) 5.3 H Chloride (98 - 107 mmol/L) 93 L Carbon Dioxide (22 - 30 mmol/L) 36 H Anion Gap (5 - 16) 11 BUN (9 - 20 mg/dL) 40 H Creatinine (0.7 - 1.2 mg/dL) 1.9 H Estimated GFR (>60 ml/min) 34 L BUN/Creatinine Ratio (7 - 25 %) 21.1 Lactic Acid (0.7 - 2.1 mmol/L) 1.6 Magnesium (1.6 - 2.3 mg/dL) 1.8 Total Bilirubin (0.2 - 1.3 mg/dL) 1.1 Direct Bilirubin (< 0.4 mg/dL) 1.0 H AST (17 - 59 U/L) 43 ALT (21 - 72 U/L) 23 Alkaline Phosphatase (< 127 U/L) 101 Troponin I (<0.11 ng/ml) 0.06 Total Protein (6.3 - 8.2 g/dL) 7.5 Albumin (3.5 - 5.0 g/dL) 2.9 L Coagulation PT (9.4 - 12.5 SEC) 13.4 H INR (0.90 - 1.17) 1.28 H Hematology CBC w Diff MAN DIFF ORDERED WBC (4.8 - 10.8 /CUMM) 2.4 L RBC (4.70 - 6.10 /CUMM) 3.71 L Hgb (14.0 - 18.0 G/DL) 10.7 L Hct (42 - 52 %) 33.4 L MCV (80.0 - 94.0 FL) 90.0 MCH (27.0 - 31.0 PG) 28.8 RDW (11.5 - 14.5 %) 19.7 H Plt Count (130 - 400 /CUMM) 54 L MPV (7.4 - 10.4 FL) 10.7 H Gran % (42.2 - 75.2 %) 93.2 H Lymphocytes % (20.5 - 51.1 %) 5.4 L Monocytes % (1.7 - 9.3 %) 1.3 L Eosinophils % (0 - 5 %) 0.1 Basophils % (0.0 - 2.0 %) 0 L Absolute Granulocytes (1.4 - 6.5 /CUMM) 2.2 Absolute Lymphocytes (1.2 - 3.4 /CUMM) 0.1 L Absolute Monocytes (0.10 - 0.60 /CUMM) 0 L Absolute Eosinophils (0.0 - 0.7 /CUMM) 0 Absolute Basophils (0.0 - 0.2 /CUMM) 0 Platelet Estimate (ADEQUATE) DECREASED Polychromasia 1+ Basophilic Stippling 1+ Anisocytosis 1+ Stomatocytes 1+ PUBS MCHC (33.0 - 37.0 G/DL) 32.0 L 12/06 12/06 0530 0230 Blood Gas pH (7.35 - 7.45 PH) 7.28 *L pCO2 (35 - 45 TORR) 71 *H pO2 (80 - 100 TORR) 91 HCO3 (21 - 28 MEQ/L) 33 H ABG O2 Sat (Measured) (>96.0 %) 96.0 P-50 (Temp Corrected) N Carboxyhemoglobin (1.5 - 5.0 %) 0.2 L O2 Concentration % .40 Respiration Rate (BPM) 24 O2 Delivery Method BIPAP Vent Mode ST Expiratory Pressure (CM H2O P) 6 Inspiratory Pressure (CM H2O P) 18 Miscellaneous Phlebotomy Draw Site RIGHT RADIAL Toxicology Urine Opiates Screen (>2000 NG/ML) 255.00 Methadone Screen (>300 NG/ML) 49 Barbiturate Screen (>200 NG/ML) < 60 Ur Phencyclidine Scrn (>25 NG/ML) < 6.00 Amphetamines Screen (>1000 NG/ML) < 100 U Benzodiazepines Scrn (>200 NG/ML) < 85 Urine Cocaine Screen (>300 NG/ML) < 50 Urine Cannabis Screen (>50 NG/ML) < 5.00 Urines Urinalysis MANY H Urine Color (YEL,AMB,STR) RAYSHAWN Urine Clarity (CLEAR) CLEAR Urine pH (5.0 - 8.0) 5.5 Ur Specific [place] (1.001 - 1.035) >= 1.030 Urine Protein (NEG,<30 MG/DL) 30 H Urine Ketones (NEG) TRACE H Urine Nitrite (NEG) NEG Urine Bilirubin (NEG) NEG@ICTO Urine Urobilinogen (0.1 - 1.0 EU/dl) 1.0 Ur Leukocyte Esterase (NEG) NEG Ur Microscopic SEDIMENT EXAMINED Urine RBC (0 - 5 /HPF) 1-3 Urine WBC (0 - 2 /HPF) 1-3 H Ur Epithelial Cells (NONE,FEW) FEW Hyaline Casts (0/LPF) > 75 H Urine Mucus (FEW,NONE) MOD H Urine Hemoglobin (NEG) NEG Urine Glucose (N MG/DL) NEG 12/06 12/05 0200 2320 Blood Gas pH (7.35 - 7.45 PH) 7.30 *L pCO2 (35 - 45 TORR) 69 *H pO2 (80 - 100 TORR) 65 L HCO3 (21 - 28 MEQ/L) 34 H ABG O2 Sat (Measured) (>96.0 %) 90.0 L P-50 (Temp Corrected) N Carboxyhemoglobin (1.5 - 5.0 %) 0.7 L O2 Concentration % 3L O2 Delivery Method N/C Chemistry Sodium (137 - 145 mmol/L) 142 Potassium (3.5 - 5.1 mmol/L) 5.1 Chloride (98 - 107 mmol/L) 92 L Carbon Dioxide (22 - 30 mmol/L) 39 H Anion Gap (5 - 16) 12 BUN (9 - 20 mg/dL) 36 H Creatinine (0.7 - 1.2 mg/dL) 2.0 H Estimated GFR (>60 ml/min) 32 L BUN/Creatinine Ratio (7 - 25 %) 18.0 Glucose (65 - 99 mg/dL) 99 Calcium (8.4 - 10.2 mg/dL) 8.7 Phosphorus (2.5 - 4.5 mg/dL) 4.8 H Magnesium (1.6 - 2.3 mg/dL) 1.5 L Total Bilirubin (0.2 - 1.3 mg/dL) 1.4 H Direct Bilirubin (< 0.4 mg/dL) 1.1 H AST (17 - 59 U/L) 58 ALT (21 - 72 U/L) 26 Alkaline Phosphatase (< 127 U/L) 121 Troponin I (<0.11 ng/ml) 0.07 Fap-H-Osbrmhzaxql Pept (<125 pg/mL) 19500 H Total Protein (6.3 - 8.2 g/dL) 8.8 H Albumin (3.5 - 5.0 g/dL) 3.6 Globulin (1.9 - 4.2 gm/dL) 5.2 H Albumin/Globulin Ratio (1.1 - 2.2 %) 0.7 L Hematology CBC w Diff NO MAN DIFF REQ WBC (4.8 - 10.8 /CUMM) 4.3 L RBC (4.70 - 6.10 /CUMM) 4.02 L Hgb (14.0 - 18.0 G/DL) 11.4 L Hct (42 - 52 %) 36.5 L MCV (80.0 - 94.0 FL) 90.6 MCH (27.0 - 31.0 PG) 28.4 RDW (11.5 - 14.5 %) 19.9 H Plt Count (130 - 400 /CUMM) 62 L MPV (7.4 - 10.4 FL) 10.6 H Gran % (42.2 - 75.2 %) 79.0 H Lymphocytes % (20.5 - 51.1 %) 6.3 L Monocytes % (1.7 - 9.3 %) 13.6 H Eosinophils % (0 - 5 %) 0.9 Basophils % (0.0 - 2.0 %) 0.2 Absolute Granulocytes (1.4 - 6.5 /CUMM) 3.4 Absolute Lymphocytes (1.2 - 3.4 /CUMM) 0.3 L Absolute Monocytes (0.10 - 0.60 /CUMM) 0.6 Absolute Eosinophils (0.0 - 0.7 /CUMM) 0 Absolute Basophils (0.0 - 0.2 /CUMM) 0 PUBS MCHC (33.0 - 37.0 G/DL) 31.4 L Miscellaneous Phlebotomy Draw Site RIGHT BRACHIAL Toxicology Serum Alcohol (<10 MG/DL) < 10.0 12/05 2310 Toxicology Serum Alcohol Cancelled Diagnostic Data EKG Results (12/06/2016) unknown, wide complex, irregular rhythm. Suspect sinusitis versus ectopic atrial rhythm with multiple APCs, right bundle branch block and nondiagnostic ST-T wave abnormalities in diffuse leads. CXR Results (12/05/2016)Mild retrocardiac airspace opacity, which may reflect atelectasis or developing consolidation in the proper clinical setting. Other Results Echocardiogram (03/15/2016) Normal size left ventricle. Borderline normal left ventricular ejection fraction estimated at 50-55%. Flattened septum in systole consistent with right ventricle pressure overload. Abnormal septal motion. Moderate right ventricular dilatation. Mild to moderate right atrial dilatation. Mild left atrial dilatation. Mild thickening/calcification of the anterior mitral valve leaflet. Mitral annular calcification. Mild mitral regurgitation. Trileaflet aortic valve. Diffuse thickening (sclerosis) of the aortic valve cusps without reduced excursion. Mild aortic stenosis. Tricuspid valve not well visualized, grossly normal. Moderate tricuspid regurgitation. Right ventricular systolic pressure estimated to be elevated at 60 mmHg. Pulmonic valve not well visualized, grossly normal. Mild pulmonic regurgitation. No pericardial effusion. Aortic root and proximal ascending aorta not well visualized, grossly normal. Assessment/Plan Assessment/Plan Mr. Hendrix is an elderly male with a history of hypertension treated with beta radha and diuretic therapy, dyslipidemia, former heavy tobacco use, severe oxygen dependent COPD, severe pulmonary hypertension, history of previous intravenous drug abuse, previous heavy EtOH use, hepatitis C, myelodysplastic syndrome, pancytopenia, conduction disease (first-degree AV block, LAFB, RBBB) previous syncope, heart failure with previously documented LV dysfunction by echocardiography December 2014/nuclear stress testing July 2015 with subsequently documented preserved left ventricular systolic function, mild aortic stenosis, moderate concentric left ventricular hypertrophy, and presumed diastolic dysfunction who presented with lethargy and progressive shortness of breath with tachypnea and CXR findings c/w mild retrocardiac airspace opacity, reflecting atelectasis vs a developing consolidation, a significantly elevated NT-PRO BNP, and evidence of acute kidney injury. His presentation is most consistent with an infectious/inflammatory pulmonary process, despite his elevated NT-PRO BNP. It needs to be recalled that plasma brain natruretic peptide (BNP) and N- terminal pro-BNP (NT-PRO BNP) are elevated in patients with heart failure, as well as in some patients without overt heart failure with a variety of conditions including renal failure, coronary artery disease, valvular heart disease, constrictive pericarditis, pulmonary hypertension, and sepsis. Mr. Raman has evidence of renal failure, pulmonary hypertension, possible sepsis, and previously documented valvular disease. It is also known that elevated levels of plasma BNP and NT-PRO BNP project and increased risk of cardiovascular events in various patient populations including those with and without prior symptomatic cardiac disease. Recommendations: * Consider transfer to telemetry given questionable rhythm, hyperkalemia, etc., follow-up troponins, repeat electrocardiogram. * Hold diuretic therapy for the short-term. * Consider cutting back on his beta 1 selective beta radha (metoprolol) given earlier hypotension for at least the short term. * Pulmonary consultation to guide TRC, oxygen use, antimicrobial therapy, steroid use, etc. * Consider repeat echocardiogram to reassess the patient's left ventricular systolic/diastolic function, degree of left ventricular hypertrophy, right ventricular function, estimated pulmonary systolic pressure, degree of aortic stenosis, etc. * Check free T4, TSH, glycosylated hemoglobin A1c. * Deep venous thrombosis prophylaxis. Consult Acknowledgment - Thank you for your consult request.
--- NOTE | 2016-12-06 14:42 | PN- Att Addend ---
Attending Addendum Attending Brief Note Patient seen and examined, revealing a BiPAP but not feeling well. He is confused and not able to K[place]y gait well. Patient is a 86-year-old male with past medical history significant for Hep C, alcohol abuse, HTN, COPD on 3L, pulmonary HTN, paroxysmal Afib, ?MDS, previous biventricular heart failure, last admitted for COPDE (February 2016) is sent in for lethargy, tachypnea and hypoxia, ADMITTED WITH Acute on chronic hypoxic and hypercarbic respiratory failure 2/2 possible HCAP and severe pulmonary hypertension with cor pulmonale due to severe COPD. Patient also has Acute renal failure, Hyperkalemia and has ectopic atrial rhythm with multiple PACs on the EKG. Vital Signs Date Time Temp Pulse Resp B/P Pulse O2 O2 Flow FiO2 Ox Delivery Rate 12/06 1223 Nasal 5.0L Cannula 12/06 1157 110/60 12/06 1012 110/60 12/06 0800 92 BIPAP 40% 12/06 0726 91 12/06 0655 97.3 72 28 98/58 92 BIPAP 12/06 0415 24 96 BIPAP 12/06 0245 89 92 12/06 0226 99.4 94 32 100/80 89 Nasal 4.0L Cannula 12/06 0220 94 BIPAP 40% 12/06 0030 98.5 96 22 95/50 89 Nasal 3.0L Cannula 12/06 0004 94 Nasal 2.5L Cannula 12/05 2306 130/60 12/05 2257 98.8 110 26 134/90 90 Nasal 3.0L Cannula on exam; awake, wearing BIPAP. cv; s1,s2, irregular. resp; decreased breath sounds overall. abd; soft, nt, bs+ ext; trace edema. Laboratory Tests 12/06 12/06 1200 0934 Blood Gas pH (7.35 - 7.45 PH) 7.47 H pCO2 (35 - 45 TORR) 45 pO2 (80 - 100 TORR) 89 HCO3 (21 - 28 MEQ/L) 32 H ABG O2 Sat (Measured) (>96.0 %) 97.0 P-50 (Temp Corrected) YES Carboxyhemoglobin (1.5 - 5.0 %) 0.3 L O2 Concentration % 40 Temperature (97.0 - 100.0 FARH) 97.3 Respiration Rate (BPM) 28 O2 Delivery Method BIPAP Vent Mode ST Expiratory Pressure (CM H2O P) 4 Inspiratory Pressure (CM H2O P) 22 Chemistry Lactic Acid (0.7 - 2.1 mmol/L) 1.6 Hematology CBC w Diff MAN DIFF ORDERED WBC (4.8 - 10.8 /CUMM) 2.4 L RBC (4.70 - 6.10 /CUMM) 3.71 L Hgb (14.0 - 18.0 G/DL) 10.7 L Hct (42 - 52 %) 33.4 L MCV (80.0 - 94.0 FL) 90.0 MCH (27.0 - 31.0 PG) 28.8 RDW (11.5 - 14.5 %) 19.7 H Plt Count (130 - 400 /CUMM) 54 L MPV (7.4 - 10.4 FL) 10.7 H Gran % (42.2 - 75.2 %) 93.2 H Lymphocytes % (20.5 - 51.1 %) 5.4 L Monocytes % (1.7 - 9.3 %) 1.3 L Eosinophils % (0 - 5 %) 0.1 Basophils % (0.0 - 2.0 %) 0 L Absolute Granulocytes (1.4 - 6.5 /CUMM) 2.2 Absolute Lymphocytes (1.2 - 3.4 /CUMM) 0.1 L Absolute Monocytes (0.10 - 0.60 /CUMM) 0 L Absolute Eosinophils (0.0 - 0.7 /CUMM) 0 Absolute Basophils (0.0 - 0.2 /CUMM) 0 Platelet Estimate (ADEQUATE) DECREASED Polychromasia 1+ Basophilic Stippling 1+ Anisocytosis 1+ Stomatocytes 1+ PUBS MCHC (33.0 - 37.0 G/DL) 32.0 L Miscellaneous Phlebotomy Draw Site RIGHT BRACHIAL 12/06 12/06 12/06 2369 6715 7550 Blood Gas pH (7.35 - 7.45 PH) 7.28 *L pCO2 (35 - 45 TORR) 71 *H pO2 (80 - 100 TORR) 91 HCO3 (21 - 28 MEQ/L) 33 H ABG O2 Sat (Measured) (>96.0 %) 96.0 P-50 (Temp Corrected) N Carboxyhemoglobin (1.5 - 5.0 %) 0.2 L O2 Concentration % .40 Respiration Rate (BPM) 24 O2 Delivery Method BIPAP Vent Mode ST Expiratory Pressure (CM H2O P) 6 Inspiratory Pressure (CM H2O P) 18 Chemistry Sodium (137 - 145 mmol/L) 140 Potassium (3.5 - 5.1 mmol/L) 5.3 H Chloride (98 - 107 mmol/L) 93 L Carbon Dioxide (22 - 30 mmol/L) 36 H Anion Gap (5 - 16) 11 BUN (9 - 20 mg/dL) 40 H Creatinine (0.7 - 1.2 mg/dL) 1.9 H Estimated GFR (>60 ml/min) 34 L BUN/Creatinine Ratio (7 - 25 %) 21.1 Magnesium (1.6 - 2.3 mg/dL) 1.8 Total Bilirubin (0.2 - 1.3 mg/dL) 1.1 Direct Bilirubin (< 0.4 mg/dL) 1.0 H AST (17 - 59 U/L) 43 ALT (21 - 72 U/L) 23 Alkaline Phosphatase (< 127 U/L) 101 Troponin I (<0.11 ng/ml) 0.06 Total Protein (6.3 - 8.2 g/dL) 7.5 Albumin (3.5 - 5.0 g/dL) 2.9 L Coagulation PT (9.4 - 12.5 SEC) 13.4 H INR (0.90 - 1.17) 1.28 H Miscellaneous Phlebotomy Draw Site RIGHT RADIAL 12/06 12/06 0230 0200 Blood Gas pH (7.35 - 7.45 PH) 7.30 *L pCO2 (35 - 45 TORR) 69 *H pO2 (80 - 100 TORR) 65 L HCO3 (21 - 28 MEQ/L) 34 H ABG O2 Sat (Measured) (>96.0 %) 90.0 L P-50 (Temp Corrected) N Carboxyhemoglobin (1.5 - 5.0 %) 0.7 L O2 Concentration % 3L O2 Delivery Method N/C Miscellaneous Phlebotomy Draw Site RIGHT BRACHIAL Toxicology Urine Opiates Screen (>2000 NG/ML) 255.00 Methadone Screen (>300 NG/ML) 49 Barbiturate Screen (>200 NG/ML) < 60 Ur Phencyclidine Scrn (>25 NG/ML) < 6.00 Amphetamines Screen (>1000 NG/ML) < 100 U Benzodiazepines Scrn (>200 NG/ML) < 85 Urine Cocaine Screen (>300 NG/ML) < 50 Urine Cannabis Screen (>50 NG/ML) < 5.00 Urines Urinalysis MANY H Urine Color (YEL,AMB,STR) RAYSHAWN Urine Clarity (CLEAR) CLEAR Urine pH (5.0 - 8.0) 5.5 Ur Specific [place] (1.001 - 1.035) >= 1.030 Urine Protein (NEG,<30 MG/DL) 30 H Urine Ketones (NEG) TRACE H Urine Nitrite (NEG) NEG Urine Bilirubin (NEG) NEG@ICTO Urine Urobilinogen (0.1 - 1.0 EU/dl) 1.0 Ur Leukocyte Esterase (NEG) NEG Ur Microscopic SEDIMENT EXAMINED Urine RBC (0 - 5 /HPF) 1-3 Urine WBC (0 - 2 /HPF) 1-3 H Ur Epithelial Cells (NONE,FEW) FEW Hyaline Casts (0/LPF) > 75 H Urine Mucus (FEW,NONE) MOD H Urine Hemoglobin (NEG) NEG Urine Glucose (N MG/DL) NEG 12/05 12/05 2320 2310 Chemistry Sodium (137 - 145 mmol/L) 142 Potassium (3.5 - 5.1 mmol/L) 5.1 Chloride (98 - 107 mmol/L) 92 L Carbon Dioxide (22 - 30 mmol/L) 39 H Anion Gap (5 - 16) 12 BUN (9 - 20 mg/dL) 36 H Creatinine (0.7 - 1.2 mg/dL) 2.0 H Estimated GFR (>60 ml/min) 32 L BUN/Creatinine Ratio (7 - 25 %) 18.0 Glucose (65 - 99 mg/dL) 99 Calcium (8.4 - 10.2 mg/dL) 8.7 Phosphorus (2.5 - 4.5 mg/dL) 4.8 H Magnesium (1.6 - 2.3 mg/dL) 1.5 L Total Bilirubin (0.2 - 1.3 mg/dL) 1.4 H Direct Bilirubin (< 0.4 mg/dL) 1.1 H AST (17 - 59 U/L) 58 ALT (21 - 72 U/L) 26 Alkaline Phosphatase (< 127 U/L) 121 Troponin I (<0.11 ng/ml) 0.07 Att-G-Vvdiokyvysl Pept (<125 pg/mL) 47615 H Total Protein (6.3 - 8.2 g/dL) 8.8 H Albumin (3.5 - 5.0 g/dL) 3.6 Globulin (1.9 - 4.2 gm/dL) 5.2 H Albumin/Globulin Ratio (1.1 - 2.2 %) 0.7 L Hematology CBC w Diff NO MAN DIFF REQ WBC (4.8 - 10.8 /CUMM) 4.3 L RBC (4.70 - 6.10 /CUMM) 4.02 L Hgb (14.0 - 18.0 G/DL) 11.4 L Hct (42 - 52 %) 36.5 L MCV (80.0 - 94.0 FL) 90.6 MCH (27.0 - 31.0 PG) 28.4 RDW (11.5 - 14.5 %) 19.9 H Plt Count (130 - 400 /CUMM) 62 L MPV (7.4 - 10.4 FL) 10.6 H Gran % (42.2 - 75.2 %) 79.0 H Lymphocytes % (20.5 - 51.1 %) 6.3 L Monocytes % (1.7 - 9.3 %) 13.6 H Eosinophils % (0 - 5 %) 0.9 Basophils % (0.0 - 2.0 %) 0.2 Absolute Granulocytes (1.4 - 6.5 /CUMM) 3.4 Absolute Lymphocytes (1.2 - 3.4 /CUMM) 0.3 L Absolute Monocytes (0.10 - 0.60 /CUMM) 0.6 Absolute Eosinophils (0.0 - 0.7 /CUMM) 0 Absolute Basophils (0.0 - 0.2 /CUMM) 0 PUBS MCHC (33.0 - 37.0 G/DL) 31.4 L Toxicology Serum Alcohol (<10 MG/DL) < 10.0 Cancelled A/P; Patient is a 86-year-old male with past medical history significant for Hep C, alcohol abuse, HTN, COPD on 3L, pulmonary HTN, paroxysmal Afib, ?MDS, previous biventricular heart failure, last admitted for COPDE (February 2016) is sent in for lethargy, tachypnea and hypoxia, ADMITTED WITH Acute on chronic hypoxic and hypercarbic respiratory failure 2/2 possible HCAP and severe pulmonary hypertension with cor pulmonale due to severe COPD. Patient also has Acute renal failure, Hyperkalemia and has ectopic atrial rhythm with multiple PACs on the EKG. Per cardiology, transfer the patient to telemetry. Monitor potassium and kidney function. Hold Lasix. Continue daily steroids, current antibiotic and follow-up on cultures. ABG improved after BiPAP. Continue other current medicines. DVT prophylaxis: ALPS secondary to thrombocytopenia.
[2016-12-06 14:48] VITALS: BP 148/62
[2016-12-06 16:00] VITALS: BP 118/60
--- NOTE | 2016-12-06 17:27 | NUR ---
PT TRANSERRED TO [facility] TO ROOM #171 AT ABOUT 1500. PT IS A/CONFUSSED. VSS 118/60,91,99.0,20,89% ON 4L. PT IS COUGHING-INERN AWARE. IV LINE PATENT-NO INFILTRATION. WELCOME PACKET RECIEVED BY PT. PT CURRENTLY RESTING IN BED. PT HAS BED ALARM ON AND FUNCTIONGING PROPERLY. SITTER IS IN ROOM WITH PT. SAFTEY MAINTAINED. CALL WEBER WITHIN REACH.
[2016-12-06 23:53] VITALS: BP 114/60
--- NOTE | 2016-12-07 06:41 | PN- Housestaff ---
NICOLE MERAZ,[facility] [employer] 12/07/16 0641: Subjective Follow-up For: Respiratory Failure 2/2 Pneumonia Tele-Events Since Last Visit: Sinus Rhythm 82-87 Sinus A.Fib No OE Subjective: Mr Diaz was seen and examined this morning he was alert and oriented to place time and person. Patient reports no acute issues overnight. Patient continues to be on supplemental oxygen he is on 3 L via nasal cannula. Patient states he is ready and eager to go his head scan this morning. Patient denies any fever, chills, nausea, vomiting. Patient reports a good appetite and currently recommends the food at [facility]. Review of Systems Constitutional: Reports: see HPI. Denies: chills, diaphoresis, fever, malaise, weakness. Objective Last 24 Hrs of Vital Signs/I&O Vital Signs Date Time Temp Pulse Resp B/P Pulse O2 O2 Flow FiO2 Ox Delivery Rate 12/07 0800 97.7 71 20 134/60 95 Nasal 4.0L Cannula 12/07 0000 Nasal 3.0L Cannula 12/06 2353 97.9 80 32 114/60 91 Nasal 3.0L Cannula 12/06 2113 80 118/60 12/06 1600 90 Nasal 4.0L Cannula 12/06 1600 99.0 100 20 118/60 88 Nasal 4.0L Cannula 12/06 1545 91 Nasal 4.0L Cannula 12/06 1448 100.1 91 22 148/62 95 12/06 1223 Nasal 5.0L Cannula 12/06 1157 110/60 Intake & Output 12/07 1600 12/07 0800 12/07 0000 Intake Total 510 1250 Output Total 400 250 Balance 110 1000 Intake, IV 270 650 Intake, Oral 240 600 Output, Urine 400 250 Physical Exam General Appearance: Alert, Oriented X3, Cooperative Cardiovascular: Normal S1, Normal S2, No Murmurs Lungs: Bilaterral Wheezing and Rhonchi Abdomen: Normal Bowel Sounds, Soft, No Tenderness Neurological: Normal Speech Extremities: No Edema Current Medications: Current Medications Sig/Linda Start time Last Medication Dose Route Stop Time Status Admin Acetaminophen 650 MG Q6P PRN 12/06 0215 AC PO Albuterol Sulfate 2 PUF Q4 PRN 12/06 1600 AC 12/06 INH 1805 Aspirin 81 MG DAILY 12/06 1000 AC PO Budesonide/ 2 PUF BID 12/06 1000 AC 12/06 Formoterol Fumarate INH 2111 Docusate Sodium 100 MG DAILY 12/06 1000 AC PO Ferrous Sulfate 325 MG DAILY 12/06 1000 AC PO Furosemide 40 MG DAILY 12/06 1000 AC PO Guaifenesin 600 MG Q12 12/06 1000 AC 12/06 PO 2110 Methylprednisolone 40 MG DAILY 12/06 1354 AC 12/06 IV 1434 Metoprolol Tartrate 25 MG BID 12/06 1000 AC 12/06 PO 2113 Mirtazapine 7.5 MG AT BEDTIME NEED.. 12/06 0400 AC PO Moxifloxacin HCl 400 MG Q24H 12/06 0300 AC 12/07 N/A 1 UNIT IV 0305 Sodium Chloride 1,000 ML Q13H 12/06 1100 DC 12/06 IV 12/06 2359 1156 Tiotropium Aubrey 1 PUF DAILY 12/06 1000 AC INH Trazodone HCl 12.5 MG AT BEDTIME 12/06 2200 AC 12/06 PO 2111 Vancomycin HCl 1,000 MG ONCE ONE 12/06 1530 DC 12/06 Dextrose/Water 250 ML IV 12/06 1629 1702 Last 24 Hrs of Lab/Rocco Results Last 24 Hrs of Labs/Mics: Laboratory Tests 12/07/16 0715: Hemoglobin A1c Cancelled 12/07/16 0715: Anion Gap 5, Estimated GFR 36 L, BUN/Creatinine Ratio 25.0, TSH 1.260, Free T4 1.54, CBC w Diff NO MAN DIFF REQ, RBC 3.63 L, MCV 89.4, MCH 28.7, RDW 20.6 H, MPV 10.5 H, Gran % 86.1 H, Lymphocytes % 5.4 L, Monocytes % 8.2, Eosinophils % 0.3, Basophils % 0 L, Absolute Granulocytes 3.1, Absolute Lymphocytes 0.2 L, Absolute Monocytes 0.3, Absolute Eosinophils 0, Absolute Basophils 0, PUBS MCHC 32.1 L 12/06/16 1200: pH 7.47 H, pCO2 45, pO2 89, HCO3 32 H, ABG O2 Sat (Measured) 97.0, P-50 (Temp Corrected) YES, Carboxyhemoglobin 0.3 L, O2 Concentration % 40, Temperature 97.3, Respiration Rate 28, O2 Delivery Method BIPAP, Vent Mode ST, Expiratory Pressure 4, Inspiratory Pressure 22, Phlebotomy Draw Site RIGHT BRACHIAL Assessment/Plan Assessment: 86-year-old male, snf resident, with PMH of paroxysmal atrial fibrillation, HTN, HFPeF, COPD on 3L oxygen, MDS, history of alcohol dependence/ withdrawal, hepatitis C, cor pulmonale, presented for lethargy, desaturation, and upper extremities twiching. # Acute on chronic hypercapneic and hypoxic respiratory failure, secondary to pneumonia vs unintentional opiate overdose iven 1 time ceftaz and azithro in ED Given 1 time 125 mg solumedrol in ED ABG 7.30/69H/65L/34 Start moxifloxacin, --> will be converted to oral moxifloxacin on 12/08/2016. Follow BCX2, LRC, urine legionella, urine strep pneumo, UA, UC Follow urine toxicology, serum alcohol < [address] Place on BIPAP, pt need a sitter due to hx of agitation with bipap in the past Repeat ABG 5am Consider head CT if lethargy does not improve: head CT showed no acute intracranial pathology. Prednisone by mouth 40 mg daily. TRC/nebs Mucinex 600bid # Upper extremities twiching, unlikely seizure Mag 1.5 Repeat magnesium in am. Replete mag 1 gm mag sulfate Consider neuro consult # Abdominal tenderness T bili 1.4 H, direct bili 1.[address] abd and pelvis if continues to be tender Follow bilirubin levels Consider RUQ US # Acute on chronic heart failure, hypotension Last Echo February 2016, EF 55% Consider repeat echo Continue lasix 40 daily (watch cr and BP) Hold metoprolol if SBP <100 Received about 300ml of NS As per cardio recommendations consider FIDELINA to assess left atrial size and RV pressures. # Acute kidney injury BUN/Cr: 36H/2H Jul 2016: 20/1.2 Follow kidney functions: creatinine this a.m. 1.8 # Pancytopenia due to myelodysplastic syndrome # Hypertension, paroxysmal atrial fibrillation Continue metoprolol 25 bid (hold if hypotensive) blood pressure this a.m. 124/70 #Hyperkalemia Patient had an elevated potassium of 5.7 this AM. An EKG was done which showed no acute changes. This evening patient was given a one-time 60 mEq of Kayexalate in anticipation to reduce his potassium as well as to help in Having a bowel movement. # Other home meds Continue docusate 100 daily Continue pantoprazole 40 mg daily Continue aspirin 81mg daily Continue trazodone 25 mg, mirtazapine 7.5 mg, melatonin 3 mg at bedtime Diet: Regular diet DVT ppx: [facility] FULL CODE Problem List: 1. Acute renal insufficiency 2. Prolonged Q-T interval on ECG 3. COPD (chronic obstructive pulmonary disease) 4. Hypertension 5. Myelodysplasia (myelodysplastic syndrome) 6. History of chronic respiratory failure Pain Ratin Pain Location: No Pain Reported Pain Goal: Remain pain free Pain Plan: Tylenol PRN Tomorrow's Labs & Rationales: CBC: Monitor WBC in the setting of an infection BEP: Monitor Electrolytes in the setting of Hyperkalemia GARRET WILSON MD 12/07/16 2158: Attending MD Review Statement Attending Statement Attending MD Statement: examined this patient, discuss w/resident/PA/PROCUREMENT ANALYST, agreed w/resident/PA/PROCUREMENT ANALYST, reviewed EMR data (avail), discussed with nursing, amended to note Attending Assessment/Plan: The patient was seen and discussed with house staff. Agree with the plan of care as outlined.
[2016-12-07 08:00] VITALS: BP 134/60
[2016-12-07 08:31] LABS: ABSOLUTE BASOPHIL COUNT 0 /CUMM (0.0-0.2); ABSOLUTE EOSINOPHIL COUNT 0 /CUMM (0.0-0.7); ABSOLUTE GRANULOCYTE CT 3.1 /CUMM (1.4-6.5); ABSOLUTE LYMPH COUNT 0.2 /CUMM (1.2-3.4); BASOPHIL % 0 % (0.0-2.0); HEMATOCRIT 32.5 % (42-52); MEAN PLATELET VOLUME 10.5 FL (7.4-10.4); RED BLOOD CELL CT 3.63 /CUMM (4.70-6.10)
[2016-12-07 08:58] LABS: ABSOLUTE MONOCYTE COUNT 0.3 /CUMM (0.10-0.60); EOSINOPHIL % 0.3 % (0-5); MEAN CORPUSCULAR HGB 28.7 PG (27.0-31.0); MEAN CORPUSCULAR HGB CONC 32.1 G/DL (33.0-37.0); MEAN CORPUSCULAR VOLUME 89.4 FL (80.0-94.0); PLATELET COUNT 77 /CUMM (130-400); RBC DISTRIBUTION WIDTH 20.6 % (11.5-14.5); WHITE BLOOD CELL COUNT 3.6 /CUMM (4.8-10.8)
[2016-12-07 09:31] LABS: GRANULOCYTE % 86.1 % (42.2-75.2)
--- NOTE | 2016-12-07 09:46 | CT SCAN REPORT ---
EXAMINATION: CT HEAD WITHOUT CONTRAST CLINICAL INFORMATION: Encephalopathy. Lethargic. COMPARISON: CT scan of the head 06/15/2015. TECHNIQUE: Contiguous axial imaging was performed from the skull base to vertex without intravenous administration of contrast. DLP: 600.71 mGy-cm. FINDINGS: There is no evidence of acute intracranial hemorrhage or territorial infarction. No abnormal mass effect or midline shift is seen. Elizabeth to white matter differentiation is well preserved. No extra-axial fluid collections are identified. The ventricles and sulci are commensurately prominent consistent with [id number] diffuse volume loss. There are areas of low attenuation in the periventricular and subcortical white matter, consistent with chronic microvascular ischemic changes. There are lacunar infarcts in the bilateral caudate hands and in the left caudate body. The osseous structures and soft tissues are normal. There are relatively extensive atheromatous calcifications of the cavernous internal carotid arteries and the left vertebral artery. There is trace fluid at the left mastoid tip and there is moderate mucoperiosteal thickening in the bilateral maxillary sinuses, which has developed since the prior study. IMPRESSION: 1. There are no acute intracranial findings. 2. There are sequelae of chronic microvascular ischemic disease and diffuse volume loss.
--- NOTE | 2016-12-07 10:59 | PN- Pulmonary ---
Subjective HPI/Critical Care Issues: More awake Still has a cough In sinus rhythm Has had previous irregular rhythm Does complain of significant constipation Review of symptoms otherwise unremarkable Still has a cough Objective Current Medications: Current Medications Sig/Linda Start time Last Medication Dose Route Stop Time Status Admin Acetaminophen 650 MG Q6P PRN 12/06 0215 AC PO Albuterol Sulfate 2 PUF Q4 PRN 12/06 1600 AC 12/06 INH 1805 Aspirin 81 MG DAILY 12/06 1000 AC PO Budesonide/ 2 PUF BID 12/06 1000 AC 12/06 Formoterol Fumarate INH 2111 Docusate Sodium 100 MG DAILY 12/06 1000 AC PO Ferrous Sulfate 325 MG DAILY 12/06 1000 AC PO Furosemide 40 MG DAILY 12/06 1000 AC PO Guaifenesin 600 MG Q12 12/06 1000 AC 12/06 PO 2110 Methylprednisolone 40 MG DAILY 12/06 1354 AC 12/06 IV 1434 Metoprolol Tartrate 25 MG BID 12/06 1000 AC 12/06 PO 2113 Mirtazapine 7.5 MG AT BEDTIME NEED.. 12/06 0400 AC PO Moxifloxacin HCl 400 MG Q24H 12/06 0300 AC 12/07 N/A 1 UNIT IV 0305 Sodium Chloride 1,000 ML Q13H 12/06 1100 DC 12/06 IV 12/06 2359 1156 Tiotropium [place] 1 PUF DAILY 12/06 1000 AC INH Trazodone HCl 12.5 MG AT BEDTIME 12/06 2200 AC 12/06 PO 2111 Vancomycin HCl 1,000 MG ONCE ONE 12/06 1530 DC 12/06 Dextrose/Water 250 ML IV 12/06 1629 1702 Vital Signs & I&O Last 24 Hrs of Vitals and I&O: Vital Signs Date Time Temp Pulse Resp B/P Pulse O2 O2 Flow FiO2 Ox Delivery Rate 12/07 0800 97.7 71 20 134/60 95 Nasal 4.0L Cannula 12/07 0000 Nasal 3.0L Cannula 12/06 2353 97.9 80 32 114/60 91 Nasal 3.0L Cannula 12/06 2113 80 118/60 12/06 1600 90 Nasal 4.0L Cannula 12/06 1600 99.0 100 20 118/60 88 Nasal 4.0L Cannula 12/06 1545 91 Nasal 4.0L Cannula 12/06 1448 100.1 91 22 148/62 95 12/06 1223 Nasal 5.0L Cannula 12/06 1157 110/60 Intake & Output 12/07 1600 12/07 0800 12/07 0000 Intake Total 510 1250 Output Total 400 250 Balance 110 1000 Intake, IV 270 650 Intake, Oral 240 600 Output, Urine 400 250 Laboratory Tests 12/07 12/07 0715 0715 Chemistry Sodium (137 - 145 mmol/L) 137 Potassium (3.5 - 5.1 mmol/L) 5.7 H Chloride (98 - 107 mmol/L) 96 L Carbon Dioxide (22 - 30 mmol/L) 36 H Anion Gap (5 - 16) 5 BUN (9 - 20 mg/dL) 45 H Creatinine (0.7 - 1.2 mg/dL) 1.8 H Estimated GFR (>60 ml/min) 36 L BUN/Creatinine Ratio (7 - 25 %) 25.0 Hemoglobin A1c Cancelled TSH (0.270 - 4.200 uIU/mL) 1.260 Free T4 (0.85 - 1.93 ng/dL) 1.54 Hematology CBC w Diff NO MAN DIFF REQ WBC (4.8 - 10.8 /CUMM) 3.6 L RBC (4.70 - 6.10 /CUMM) 3.63 L Hgb (14.0 - 18.0 G/DL) 10.4 L Hct (42 - 52 %) 32.5 L MCV (80.0 - 94.0 FL) 89.4 MCH (27.0 - 31.0 PG) 28.7 RDW (11.5 - 14.5 %) 20.6 H Plt Count (130 - 400 /CUMM) 77 L MPV (7.4 - 10.4 FL) 10.5 H Gran % (42.2 - 75.2 %) 86.1 H Lymphocytes % (20.5 - 51.1 %) 5.4 L Monocytes % (1.7 - 9.3 %) 8.2 Eosinophils % (0 - 5 %) 0.3 Basophils % (0.0 - 2.0 %) 0 L Absolute Granulocytes (1.4 - 6.5 /CUMM) 3.1 Absolute Lymphocytes (1.2 - 3.4 /CUMM) 0.2 L Absolute Monocytes (0.10 - 0.60 /CUMM) 0.3 Absolute Eosinophils (0.0 - 0.7 /CUMM) 0 Absolute Basophils (0.0 - 0.2 /CUMM) 0 PUBS MCHC (33.0 - 37.0 G/DL) 32.1 L 12/06 12/06 1200 0934 Blood Gas pH (7.35 - 7.45 PH) 7.47 H pCO2 (35 - 45 TORR) 45 pO2 (80 - 100 TORR) 89 HCO3 (21 - 28 MEQ/L) 32 H ABG O2 Sat (Measured) (>96.0 %) 97.0 P-50 (Temp Corrected) YES Carboxyhemoglobin (1.5 - 5.0 %) 0.3 L O2 Concentration % 40 Temperature (97.0 - 100.0 FARH) 97.3 Respiration Rate (BPM) 28 O2 Delivery Method BIPAP Vent Mode ST Expiratory Pressure (CM H2O P) 4 Inspiratory Pressure (CM H2O P) 22 Chemistry Lactic Acid (0.7 - 2.1 mmol/L) 1.6 Hematology CBC w Diff MAN DIFF ORDERED WBC (4.8 - 10.8 /CUMM) 2.4 L RBC (4.70 - 6.10 /CUMM) 3.71 L Hgb (14.0 - 18.0 G/DL) 10.7 L Hct (42 - 52 %) 33.4 L MCV (80.0 - 94.0 FL) 90.0 MCH (27.0 - 31.0 PG) 28.8 RDW (11.5 - 14.5 %) 19.7 H Plt Count (130 - 400 /CUMM) 54 L MPV (7.4 - 10.4 FL) 10.7 H Gran % (42.2 - 75.2 %) 93.2 H Lymphocytes % (20.5 - 51.1 %) 5.4 L Monocytes % (1.7 - 9.3 %) 1.3 L Eosinophils % (0 - 5 %) 0.1 Basophils % (0.0 - 2.0 %) 0 L Absolute Granulocytes (1.4 - 6.5 /CUMM) 2.2 Absolute Lymphocytes (1.2 - 3.4 /CUMM) 0.1 L Absolute Monocytes (0.10 - 0.60 /CUMM) 0 L Absolute Eosinophils (0.0 - 0.7 /CUMM) 0 Absolute Basophils (0.0 - 0.2 /CUMM) 0 Platelet Estimate (ADEQUATE) DECREASED Polychromasia 1+ Basophilic Stippling 1+ Anisocytosis 1+ Stomatocytes 1+ PUBS MCHC (33.0 - 37.0 G/DL) 32.0 L Miscellaneous Phlebotomy Draw Site RIGHT BRACHIAL 12/06 12/06 12/06 12/06 0741 0741 0600 0530 Blood Gas pH (7.35 - 7.45 PH) 7.28 *L pCO2 (35 - 45 TORR) 71 *H pO2 (80 - 100 TORR) 91 HCO3 (21 - 28 MEQ/L) 33 H ABG O2 Sat (Measured) (>96.0 %) 96.0 P-50 (Temp Corrected) N Carboxyhemoglobin (1.5 - 5.0 %) 0.2 L O2 Concentration % .40 Respiration Rate (BPM) 24 O2 Delivery Method BIPAP Vent Mode ST Expiratory Pressure (CM H2O P) 6 Inspiratory Pressure (CM H2O P) 18 Chemistry Sodium (137 - 145 mmol/L) 140 Potassium (3.5 - 5.1 mmol/L) 5.3 H Chloride (98 - 107 mmol/L) 93 L Carbon Dioxide (22 - 30 mmol/L) 36 H Anion Gap (5 - 16) 11 BUN (9 - 20 mg/dL) 40 H Creatinine (0.7 - 1.2 mg/dL) 1.9 H Estimated GFR (>60 ml/min) 34 L BUN/Creatinine Ratio (7 - 25 %) 21.1 Hemoglobin A1c Pending Magnesium (1.6 - 2.3 mg/dL) 1.8 Total Bilirubin (0.2 - 1.3 mg/dL) 1.1 Direct Bilirubin (< 0.4 mg/dL) 1.0 H AST (17 - 59 U/L) 43 ALT (21 - 72 U/L) 23 Alkaline Phosphatase (< 127 U/L) 101 Troponin I (<0.11 ng/ml) 0.06 Total Protein (6.3 - 8.2 g/dL) 7.5 Albumin (3.5 - 5.0 g/dL) 2.9 L TSH (0.270 - 4.200 uIU/mL) 1.710 Free T4 (0.85 - 1.93 ng/dL) 1.77 Coagulation PT (9.4 - 12.5 SEC) 13.4 H INR (0.90 - 1.17) 1.28 H Miscellaneous Phlebotomy Draw Site RIGHT RADIAL 12/06 12/06 0230 0200 Blood Gas pH (7.35 - 7.45 PH) 7.30 *L pCO2 (35 - 45 TORR) 69 *H pO2 (80 - 100 TORR) 65 L HCO3 (21 - 28 MEQ/L) 34 H ABG O2 Sat (Measured) (>96.0 %) 90.0 L P-50 (Temp Corrected) N Carboxyhemoglobin (1.5 - 5.0 %) 0.7 L O2 Concentration % 3L O2 Delivery Method N/C Miscellaneous Phlebotomy Draw Site RIGHT BRACHIAL Toxicology Urine Opiates Screen (>2000 NG/ML) 255.00 Methadone Screen (>300 NG/ML) 49 Barbiturate Screen (>200 NG/ML) < 60 Ur Phencyclidine Scrn (>25 NG/ML) < 6.00 Amphetamines Screen (>1000 NG/ML) < 100 U Benzodiazepines Scrn (>200 NG/ML) < 85 Urine Cocaine Screen (>300 NG/ML) < 50 Urine Cannabis Screen (>50 NG/ML) < 5.00 Urines Urinalysis MANY H Urine Color (YEL,AMB,STR) RAYSHAWN Urine Clarity (CLEAR) CLEAR Urine pH (5.0 - 8.0) 5.5 Ur Specific Bentley (1.001 - 1.035) >= 1.030 Urine Protein (NEG,<30 MG/DL) 30 H Urine Ketones (NEG) TRACE H Urine Nitrite (NEG) NEG Urine Bilirubin (NEG) NEG@ICTO Urine Urobilinogen (0.1 - 1.0 EU/dl) 1.0 Ur Leukocyte Esterase (NEG) NEG Ur Microscopic SEDIMENT EXAMINED Urine RBC (0 - 5 /HPF) 1-3 Urine WBC (0 - 2 /HPF) 1-3 H Ur Epithelial Cells (NONE,FEW) FEW Hyaline Casts (0/LPF) > 75 H Urine Mucus (FEW,NONE) MOD H Urine Hemoglobin (NEG) NEG Urine Glucose (N MG/DL) NEG 12/05 12/05 2320 2310 Chemistry Sodium (137 - 145 mmol/L) 142 Potassium (3.5 - 5.1 mmol/L) 5.1 Chloride (98 - 107 mmol/L) 92 L Carbon Dioxide (22 - 30 mmol/L) 39 H Anion Gap (5 - 16) 12 BUN (9 - 20 mg/dL) 36 H Creatinine (0.7 - 1.2 mg/dL) 2.0 H Estimated GFR (>60 ml/min) 32 L BUN/Creatinine Ratio (7 - 25 %) 18.0 Glucose (65 - 99 mg/dL) 99 Calcium (8.4 - 10.2 mg/dL) 8.7 Phosphorus (2.5 - 4.5 mg/dL) 4.8 H Magnesium (1.6 - 2.3 mg/dL) 1.5 L Total Bilirubin (0.2 - 1.3 mg/dL) 1.4 H Direct Bilirubin (< 0.4 mg/dL) 1.1 H AST (17 - 59 U/L) 58 ALT (21 - 72 U/L) 26 Alkaline Phosphatase (< 127 U/L) 121 Troponin I (<0.11 ng/ml) 0.07 Dap-R-Iioxopgilnm Pept (<125 pg/mL) 43118 H Total Protein (6.3 - 8.2 g/dL) 8.8 H Albumin (3.5 - 5.0 g/dL) 3.6 Globulin (1.9 - 4.2 gm/dL) 5.2 H Albumin/Globulin Ratio (1.1 - 2.2 %) 0.7 L Hematology CBC w Diff NO MAN DIFF REQ WBC (4.8 - 10.8 /CUMM) 4.3 L RBC (4.70 - 6.10 /CUMM) 4.02 L Hgb (14.0 - 18.0 G/DL) 11.4 L Hct (42 - 52 %) 36.5 L MCV (80.0 - 94.0 FL) 90.6 MCH (27.0 - 31.0 PG) 28.4 RDW (11.5 - 14.5 %) 19.9 H Plt Count (130 - 400 /CUMM) 62 L MPV (7.4 - 10.4 FL) 10.6 H Gran % (42.2 - 75.2 %) 79.0 H Lymphocytes % (20.5 - 51.1 %) 6.3 L Monocytes % (1.7 - 9.3 %) 13.6 H Eosinophils % (0 - 5 %) 0.9 Basophils % (0.0 - 2.0 %) 0.2 Absolute Granulocytes (1.4 - 6.5 /CUMM) 3.4 Absolute Lymphocytes (1.2 - 3.4 /CUMM) 0.3 L Absolute Monocytes (0.10 - 0.60 /CUMM) 0.6 Absolute Eosinophils (0.0 - 0.7 /CUMM) 0 Absolute Basophils (0.0 - 0.2 /CUMM) 0 PUBS MCHC (33.0 - 37.0 G/DL) 31.4 L Toxicology Serum Alcohol (<10 MG/DL) < 10.0 Cancelled Microbiology Date/Time Procedure - Status Source Growth 12/06 229 Legionella Antigen - RES URINE ROUT 12/06 023 Streptococcus pneumoniae Antigen (M - RES URINE ROUT 12/06 023 Urine Culture - RES URINE ROUT 12/06 0205 Respiratory Culture - COLB LOWER RESP 12/06 020 Gram Stain - COLB LOWER RESP 12/05 2355 Blood Culture - RECD BLOOD 12/05 2320 Blood Culture - RECD BLOOD Impression/Plan Impression/Plan Impression/Plan: SIGNIFICANT DATA Chest x-ray showed? Retrocardiac opacity probable atelectasis versus consolidation Previous CT scan of the chest had shown bilateral infiltrates with emphysema Significant data Potassium still 5.7 Creatinine stable at 1.8 but worse than before Thyroid function tests unremarkable Continues to have pancytopenia with previous history of myelodysplasia ABG reviewed baseline PCO2 seems to have come down to [address] scan of the head reviewed nil acute Physical Exam General Appearance alert awake and oriented 3 Skin chronic venous stasis changes on both lower extremities. HEENT Mucous Membr. moist/pink, pupils pinpoint Neck JVD noted Cardiovascular Regular Rate, Normal S1, Normal S2 Lungs rhonchi heard, no wheezing. Abdomen Normal Bowel Sounds, noted some guarding especially in the lower abdomen. Neurological unable to assess. not following commands. Extremities cold extremities. , no palpable pulse on the right dorsalis pedis. 2 + left dorsalis pedis IMPRESSION This is a gentleman with severe COPD, significant alcohol use, previous history of biventricular heart failure, very severe pulmonary hypertension which appears to be secondarily related to severe COPD and previous left heart dysfunction from alcohol, hyponatremia, previous myelodysplastic syndrome, hence immunosuppressed, chronic thrombocytopenia, has the issues * REsolving Acute hypercarbic and hypoxic resp failure in a pt with endstage lung disease with left lower lobe infiltrate with worsening mental status. He has had recurrent hospitalizations and is now in a rehab [facility], with previous history of multidrug resistant organisms * History of sig etoh and myelodysplasia and hence immunosuppressed * Severe COPD, mild wheezing * Worsening mental status due to hypercarbia and has myoclonic jerks needs to be followed * Severe pulmonary hypertension with cor pulmonale due to severe COPD and as well as previous left heart dysfunction * Pervious etoh withdrawal syndrome * CKD stage 4 with crystal * Electrolyte abnormalities * Previous history of nonischemic cardiomyopathy with low ejection fraction which seems to have improved recently, al previous history of afib, now ekg showing prob afib and pt now currently not a candidate for anticoag * Previous qtc prolongation RECOMMENDATION * Continue BiPAP at hs and prn * OOB to chair * Rx constipation, may need a supp * po moxi after today * Can use po prednisone 40 qd * Keep the head of bed elevatedily Will follow
--- NOTE | 2016-12-07 12:06 | NUR ---
Physical Therapy: Patient refused PT today. Stated that he just gets out of bed and into his WC in the correction and does not walk. Communicated this with case management.
--- NOTE | 2016-12-07 14:38 | NUR ---
wound care: requested by nursing staff to eval pt for skin alterations present on admission to [facility] - "girlfriend" at bedside and sitter - reported by gf that pt has "had wounds to his bottom for a while now, and the nurses take care of it with creams at the half-way" - pt presents without evidence of skin breakdown presently - slightly darker hue to mark buttocks present presumed r/t venous pooling vs melanin deposition vs dti - no c/o voiced - skin intact recommendation: cont with repositioning as per facility guidelines - may apply moisture barrier qs after inc episodes
[2016-12-07 15:53] VITALS: BP 124/70
[2016-12-07 16:45] VITALS: BP 128/74
--- NOTE | 2016-12-07 17:48 | PN- Cardiology ---
Subjective Subjective: * Adam continues to feel left chest discomfort with breathing and has shortness of breath. * creatinine improved to 1.8 with potassium of 5.7 * low platelets of 77 * atrial fibrillation Objective Vital Signs and I&Os Vital Signs Date Time Temp Pulse Resp B/P Pulse O2 O2 Flow FiO2 Ox Delivery Rate 12/07 1553 97.6 77 18 124/70 90 12/07 1420 Nasal 3.0L Cannula 12/07 1105 71 134/60 12/07 0800 95 Nasal 3.0L Cannula 12/07 0800 97.7 71 20 134/60 95 Nasal 4.0L Cannula 12/07 0000 Nasal 3.0L Cannula 12/06 2353 97.9 80 32 114/60 91 Nasal 3.0L Cannula 12/06 2113 80 118/60 Intake & Output 12/07 1600 12/07 0800 12/07 0000 12/06 1600 12/06 0800 12/06 0000 Intake Total 3551 946 6584 420 450 Output Total 350 400 250 200 200 Balance 205 235 6000 220 250 Intake, IV 270 650 300 450 Intake, Oral 1000 240 600 120 0 Number 1 0 Bowel Movements Output, Urine 350 400 250 200 200 Patient 180 lb Weight Physical Exam: General: WD/ WN male in NAD; alert and oriented x 3 Neck: no JVD Heart: irregularly irregular Lungs: decreased breath sounds bilaterally Extremities: no edema Assessment/Plan Assessment/Plan * This patient has low platelets and is a poor candidate for chronic anticoagulation. As such, he would benefit from being in a sinus rhythm to avoid the increased risk of a CVA in the setting of atrial fibrillation. We will obtain a tranthoracic echocardiogram to assess his left atrial size and RV pressures. If he does not convert to sinus rhythm on his own we can consider a FIDELINA followed by cardioversion if it appears that he has good chance of staying in a sinus rhythm and if there is no evidence of intracardiac thrombus. * There is no evidence of decompensated CHF at this time. Continue telemetry? Yes
--- NOTE | 2016-12-07 21:39 | NUR ---
AT 1645 PT COMPLAINED OF 7/10 PAIN IN CENTER OF CHEST THAT INCREASED WITH INSPIRATION. VITALS AT THAT TIME WERE 128/74, 78, 92% 3L NC, 98.0, AND 20 RESPIRATIONS. ADMINISTERED ALBUTEROL INHALER AND TESSALON PER EMAR. INFORMED [employer] ENGINEER NALDO. NO NEW ORDERS.
--- NOTE | 2016-12-08 07:48 | PN- Housestaff ---
See Addendum Subjective Follow-up For: Respiratory Failure 2/2 Pneumonia Subjective: Patient seen and examined this morning. He was lying in bed in no acute distress. She remains on 3 L of nasal cannula oxygen satting in the mid 90s. No shortness of breath, remains afebrile, otherwise is within normal range. She denied any nausea, nausea, vomiting, chills. He endorses strong wishes to go home. Review of Systems Constitutional: Denies: chills, fever. Cardiovascular: Denies: chest pain, palpitations. Respiratory: Reports: cough, sputum production. Denies: hemoptysis, short of breath. Gastrointestinal: Denies: abdominal pain, constipation, diarrhea, nausea, vomiting. Objective Last 24 Hrs of Vital Signs/I&O Vital Signs Date Time Temp Pulse Resp B/P Pulse O2 O2 Flow FiO2 Ox Delivery Rate 12/08 0800 97.8 78 20 150/70 92 Nasal 4.0L Cannula 12/08 0131 77 95 12/08 0000 96 Nasal 3.0L Cannula 12/07 2043 80 142/66 12/07 1645 98.0 78 20 128/74 92 Nasal 3.0L Cannula 12/07 1600 92 Nasal 3.0L Cannula 12/07 1553 97.6 77 18 124/70 90 12/07 1420 Nasal 3.0L Cannula 12/07 1105 71 134/60 Intake & Output 12/08 1600 12/08 0800 12/08 0000 Intake Total 480 720 Output Total 1200 1450 Balance -720 -730 Intake, Oral 480 720 Output, Urine 1200 1450 Physical Exam General Appearance: Alert, Oriented X3, Cooperative, No Acute Distress Cardiovascular: Normal S1, Normal S2, No Murmurs, irregularly irregular Lungs: exp wheeze b/l mid and lower lung zone Abdomen: Normal Bowel Sounds, Soft, No Tenderness Extremities: No Clubbing, No Cyanosis, No Edema Current Medications: Current Medications Sig/Linda Start time Last Medication Dose Route Stop Time Status Admin Acetaminophen 650 MG Q6P PRN 12/06 0215 AC PO Albuterol Sulfate 3 ML ONCE ONE 12/07 1415 DC 12/07 INH 12/07 1416 1416 Albuterol Sulfate 2 PUF Q4 PRN 12/06 1600 AC 12/07 INH 2000 Aspirin 81 MG DAILY 12/06 1000 AC 01/16 PO 1104 Benzonatate 100 MG ONCE ONE 12/07 1415 DC 12/07 PO 12/07 1416 1649 Budesonide/ 2 PUF BID 12/06 1000 AC 12/07 Formoterol Fumarate INH 2044 Docusate Sodium 100 MG DAILY 12/06 1000 AC 12/07 PO 1104 Ferrous Sulfate 325 MG DAILY 12/06 1000 AC 12/07 PO 1106 Furosemide 40 MG DAILY 12/06 1000 AC 12/07 PO 1104 Guaifenesin 600 MG Q12 12/06 1000 AC 12/07 PO 2043 Ipratropium [place] 2.5 ML ONCE ONE 12/07 1415 DC 12/07 INH 12/07 1416 1416 Methylprednisolone 40 MG DAILY 12/06 1354 DC 12/07 IV 1101 Metoprolol Tartrate 25 MG BID 12/06 1000 AC 12/07 PO 2043 Mirtazapine 7.5 MG AT BEDTIME NEED.. 12/06 0400 AC PO Moxifloxacin HCl 400 MG DAILY 12/08 1000 AC PO Moxifloxacin HCl 400 MG Q24H 12/06 0300 DC 12/07 N/A 1 UNIT IV 12/07 2350 0305 Prednisone 40 MG DAILY 12/07 1108 AC 12/07 PO 1438 Senna 187 MG AT BEDTIME PRN 12/07 1115 AC 12/07 PO 1438 Sodium Polystyrene 60 ML ONCE ONE 12/07 1615 DC 12/07 Sulfonate PO 12/07 1616 2001 Tiotropium [place] 1 PUF DAILY 12/06 1000 AC 12/07 INH 1101 Trazodone HCl 25 MG AT BEDTIME 12/07 2200 AC 12/07 PO 2044 Trazodone HCl 12.5 MG AT BEDTIME 12/06 2200 DC 12/06 PO 2111 Last 24 Hrs of Lab/Rocco Results Last 24 Hrs of Labs/Mics: Laboratory Tests 12/08/16 0615: CBC w Diff Pending, WBC Pending, RBC Pending, Hgb Pending, Hct Pending, MCV Pending, MCH Pending, RDW Pending, Plt Count Pending, MPV Pending, Gran % Pending, Lymphocytes % Pending, Monocytes % Pending, Eosinophils % Pending, Basophils % Pending, Absolute Granulocytes Pending, Absolute Lymphocytes Pending , Absolute Monocytes Pending, Absolute Eosinophils Pending, Absolute Basophils Pending, PUBS MCHC Pending 12/08/16 0600: Anion Gap 7, Estimated GFR 48 L, BUN/Creatinine Ratio 30.0 H, Magnesium 1.7 Assessment/Plan Assessment: 86-year-old male, intermediate resident, with PMH of paroxysmal atrial fibrillation, HTN, HFPeF, COPD on 3L oxygen, MDS, history of alcohol dependence/ withdrawal, hepatitis C, cor pulmonale, presented for lethargy, desaturation, and upper extremities twiching. # Acute hypercapneic and hypoxic respiratory failure secondary to pneumonia: He has underlying end-stage COPD, severe pulmonary hypertension with cor pulmonale, history of multidrug resistant organisms, upon this admission presented with altered mental status, ABG upon presentation showed 7.30/69H/65L/ 34 , repeat ABGs after BiPAP 7.47/45/89/32, will check ABG today to assess for baseline CO2 is less than 50 will keep off of BiPAP tonight to evaluate for worsening hypercarbia and check ABG again in the morning to see if he qualifies for BiPAP at home as per pulmonology recommendations. BC(ngtd), LRC(pending), urine legionella and urine strep pneumo negative. He was given ceftaz,azithro in ED later switched to IV moxifloxacin(12/06-), switch to oral moxifloxacin today to complete a seven-day course, Prednisone by mouth 40 mg today followed by taper , Mucinex 600bid, TRC/nebs. pt has a sitter due to hx of agitation with bipap. # Acute on chronic heart failure, hypotension Last Echo February 2016, EF 55%, repeat echo pending Continue lasix 40 daily Cr today 1.4) Hold metoprolol if SBP <100 As per cardio patient is a poor candidate for chronic anticoagulation, he has been in sinus rhythm on his own overnight, will continue to monitor it. # Acute kidney injury BUN/Cr: 36H/2H Jul 2016: 20/1.2 Follow kidney functions: creatinine this a.m. 1.4 # Pancytopenia due to myelodysplastic syndrome # Hypertension, paroxysmal atrial fibrillation Continue metoprolol 25 bid (hold if hypotensive) blood pressure this a.m. SBP 142-150 #Hyperkalemia resolved, Levels today 4.8 # Other home meds Continue docusate 100 daily Continue pantoprazole 40 mg daily Continue aspirin 81mg daily Continue trazodone 25 mg, mirtazapine 7.5 mg, melatonin 3 mg at bedtime Diet: Regular diet DVT ppx: [facility] FULL CODE Problem List: 1. COPD (chronic obstructive pulmonary disease) 2. Myelodysplasia (myelodysplastic syndrome) 3. Hypertension 4. Acute renal insufficiency Pain Ratin Pain Location: none Pain Goal: Remain pain free Pain Plan: Tylenol PRN Tomorrow's Labs & Rationales: CBC: Monitor WBC in the setting of an infection BEP: Monitor Electrolytes in the setting of Hyperkalemia
[2016-12-08 07:52] LABS: ABSOLUTE BASOPHIL COUNT 0 /CUMM (0.0-0.2); ABSOLUTE EOSINOPHIL COUNT 0 /CUMM (0.0-0.7); ABSOLUTE GRANULOCYTE CT 3.1 /CUMM (1.4-6.5); ABSOLUTE LYMPH COUNT 0.3 /CUMM (1.2-3.4); ABSOLUTE MONOCYTE COUNT 0.3 /CUMM (0.10-0.60); BASOPHIL % 0 % (0.0-2.0); EOSINOPHIL % 0.2 % (0-5); HEMATOCRIT 32.2 % (42-52); MEAN CORPUSCULAR HGB 28.8 PG (27.0-31.0); MEAN CORPUSCULAR HGB CONC 32.3 G/DL (33.0-37.0); MEAN CORPUSCULAR VOLUME 89.1 FL (80.0-94.0); MEAN PLATELET VOLUME 9.8 FL (7.4-10.4); PLATELET COUNT 79 /CUMM (130-400); RBC DISTRIBUTION WIDTH 20.7 % (11.5-14.5); RED BLOOD CELL CT 3.61 /CUMM (4.70-6.10); WHITE BLOOD CELL COUNT 3.7 /CUMM (4.8-10.8)
[2016-12-08 08:00] VITALS: BP 150/70
--- NOTE | 2016-12-08 10:30 | PN- Pulmonary ---
Subjective HPI/Critical Care Issues: Patient seen and examined this morning. sitting in a chair taking a nap. She remains on 3 L of nasal cannula oxygen satting in the mid 90s. No shortness of breath, remains afebrile, otherwise is within normal range. Review of Systems Constitutional: Denies: chills, fever. Cardiovascular: Denies: chest pain, palpitations. Respiratory: Reports: cough, sputum production. Denies: hemoptysis, short of breath. Gastrointestinal: Denies: abdominal pain, constipation, diarrhea, nausea, vomiting. Objective Current Medications: Current Medications Sig/Linda Start time Last Medication Dose Route Stop Time Status Admin Acetaminophen 650 MG Q6P PRN 12/06 0215 AC PO Albuterol Sulfate 3 ML ONCE ONE 12/07 1415 DC 12/07 INH 12/07 1416 1416 Albuterol Sulfate 2 PUF Q4 PRN 12/06 1600 AC 12/07 INH 2001 Aspirin 81 MG DAILY 12/06 1000 AC 12/08 PO 0932 Benzonatate 100 MG ONCE ONE 12/07 1415 DC 12/07 PO 12/07 1416 1649 Budesonide/ 2 PUF BID 12/06 1000 AC 12/08 Formoterol Fumarate INH 0928 Docusate Sodium 100 MG DAILY 12/06 1000 AC 12/08 PO 0933 Ferrous Sulfate 325 MG DAILY 12/06 1000 AC 12/08 PO 0932 Furosemide 40 MG DAILY 12/06 1000 AC 12/08 PO 0933 Guaifenesin 600 MG Q12 12/06 1000 AC 12/08 PO 0933 Ipratropium [place] 2.5 ML ONCE ONE 12/07 1415 DC 12/07 INH 12/07 1416 1416 Methylprednisolone 40 MG DAILY 12/06 1354 DC 12/07 IV 1101 Metoprolol Tartrate 25 MG BID 12/06 1000 AC 12/08 PO 0933 Mirtazapine 7.5 MG AT BEDTIME NEED.. 12/06 0400 AC PO Moxifloxacin HCl 400 MG DAILY 12/08 1000 AC 12/08 PO 0933 Moxifloxacin HCl 400 MG Q24H 12/06 0300 DC 12/07 N/A 1 UNIT IV 12/07 2350 0305 Prednisone 40 MG DAILY 12/07 1108 AC 12/08 PO 0933 Senna 187 MG AT BEDTIME PRN 12/07 1115 AC 12/07 PO 1438 Sodium Polystyrene 60 ML ONCE ONE 12/07 1615 DC 12/07 Sulfonate PO 12/07 1612000 Tiotropium [place] 1 PUF DAILY 12/06 1000 AC 12/08 INH 0929 Trazodone HCl 25 MG AT BEDTIME 12/070 AC 12/07 PO 2044 Trazodone HCl 12.5 MG AT BEDTIME 12/06 2200 DC 12/06 PO 2111 Vital Signs & I&O Last 24 Hrs of Vitals and I&O: Vital Signs Date Time Temp Pulse Resp B/P Pulse O2 O2 Flow FiO2 Ox Delivery Rate 12/08 0933 78 150/70 12/08 0800 Nasal 3.0L Cannula 12/08 0800 97.8 78 20 150/70 92 Nasal 4.0L Cannula 12/08 0131 77 95 12/08 0000 96 Nasal 3.0L Cannula 12/07 2043 80 142/66 12/07 1645 98.0 78 20 128/74 92 Nasal 3.0L Cannula 12/07 1600 92 Nasal 3.0L Cannula 12/07 1553 97.6 77 18 124/70 90 12/07 1420 Nasal 3.0L Cannula 12/07 1105 71 134/60 Intake & Output 12/08 1600 12/08 0800 12/08 0000 Intake Total 480 720 Output Total 1200 1450 Balance -720 -730 Intake, Oral 480 720 Output, Urine 1200 1450 Impression/Plan Impression/Plan Impression/Plan: SIGNIFICANT DATA Chest x-ray showed? Retrocardiac opacity probable atelectasis versus consolidation Previous CT scan of the chest had shown bilateral infiltrates with emphysema Continues to have pancytopenia with previous history of myelodysplasia ABG reviewed baseline PCO2 seems to have come down to [address] scan of the head reviewed nil acute Physical Exam General Appearance alert awake and oriented Skin chronic venous stasis changes on both lower extremities. HEENT Mucous Membr. moist/pink, pupils pinpoint Neck JVD noted Cardiovascular Regular Rate, Normal S1, Normal S2 Lungs rhonchi heard, no wheezing. Abdomen Normal Bowel Sounds, noted some guarding especially in the lower abdomen. Neurological unable to assess. not following commands. Extremities cold extremities. , no palpable pulse on the right dorsalis pedis. 2 + left dorsalis pedis IMPRESSION This is a gentleman with severe COPD, significant alcohol use, previous history of biventricular heart failure, very severe pulmonary hypertension which appears to be secondarily related to severe COPD and previous left heart dysfunction from alcohol, hyponatremia, previous myelodysplastic syndrome, hence immunosuppressed, chronic thrombocytopenia, has the issues * REsolving Acute hypercarbic and hypoxic resp failure in a pt with endstage lung disease with left lower lobe infiltrate with worsening mental status. He has had recurrent hospitalizations and is now in a rehab [facility], with previous history of multidrug resistant organisms * History of sig etoh and myelodysplasia and hence immunosuppressed * Severe COPD, mild wheezing * Worsening mental status due to hypercarbia and has myoclonic jerks needs to be followed * Severe pulmonary hypertension with cor pulmonale due to severe COPD and as well as previous left heart dysfunction * Pervious etoh withdrawal syndrome * CKD stage 4 with crystal * Electrolyte abnormalities * Previous history of nonischemic cardiomyopathy with low ejection fraction which seems to have improved recently, al previous history of afib, now ekg showing prob afib and pt now currently not a candidate for anticoag * Previous qtc prolongation RECOMMENDATION * Continue BiPAP at hs and prn, if tolerated * OOB to chair * Rx constipation, agg bowel reg * po moxi total abx of 7 days * Po prednisone and taper in 8 days * Check abg this pm to assess baseline co2- If co2 is less than 50 can keep off bipap tonight to eval for worsening hypercarbia and check abg again in am to see if he qualifies for bipap at home Will follow
--- NOTE | 2016-12-08 14:10 | Discharge Summary ---
See Addendum Visit Information Visit Dates Admission Date: 12/06/16 Discharge Date: 12/08/16 Hospital Course Course Attending Physician: GARRET WILSON MD Primary Care Physician: ALPHONSE VICTOR MD Hospital Course: Adam is an 86-year-old man with medical history of paroxysmal atrial fibrillation hypertension heart failure with preserved ejection fraction oxygen dependent COPD on 3 L myelodysplastic tic syndrome alcohol abuse and withdrawal in the past, hepatitis C cor pulmonale admitted with acute hypercarbic and hypoxemic respiratory failure in the setting of end-stage lung disease with a left lower lobe infiltrate and altered mental status. He was treated with BiPAP , intravenous moxifloxacin, Solu-Medrol. His respiratory status gradually improved, and intravenous moxifloxacin was converted to oral. He was taken off intravenous steroids and switch to prednisone taper. BiPAP was changed in frequency of as needed and at bedtime. Total duration of antibiotics should be 5 days, prednisone should be tapered over 8 days. - Problems - Acute hypercarbic hypoxemic respiratory failure Community acquired pneumonia with history of multidrug-resistant organisms End-stage COPD Allergies: Coded Allergies: lisinopril (Severe, MOUTH SWELLING 02/12/16) Penicillins (Intermediate, HIVES 02/12/16) lorazepam (HALLUCINATION 02/12/16) Pertinent Lab Results: Vital Signs Date Time Temp Pulse Resp B/P Pulse O2 O2 Flow FiO2 Ox Delivery Rate 12/08 0933 78 150/70 12/08 0800 Nasal 3.0L Cannula 12/08 0800 97.8 78 20 150/70 92 Nasal 4.0L Cannula 12/08 0131 77 95 12/08 0000 96 Nasal 3.0L Cannula 12/07 2043 80 142/66 12/07 1645 98.0 78 20 128/74 92 Nasal 3.0L Cannula 12/07 1600 92 Nasal 3.0L Cannula 12/07 1553 97.6 77 18 124/70 90 12/07 1420 Nasal 3.0L Cannula 12/07 1105 71 134/60 12/07 0800 95 Nasal 3.0L Cannula 12/07 0800 97.7 71 20 134/60 95 Nasal 4.0L Cannula 12/07 0000 Nasal 3.0L Cannula 12/06 2353 97.9 80 32 114/60 91 Nasal 3.0L Cannula 12/06 2113 80 118/60 12/06 1600 90 Nasal 4.0L Cannula 12/06 1600 99.0 100 20 118/60 88 Nasal 4.0L Cannula 12/06 1545 91 Nasal 4.0L Cannula 12/06 1448 100.1 91 22 148/62 95 12/06 1223 Nasal 5.0L Cannula 12/06 1157 110/60 12/06 1012 110/60 12/06 0800 92 BIPAP 40% 12/06 0726 91 12/06 0655 97.3 72 28 98/58 92 BIPAP 12/06 0415 24 96 BIPAP 12/06 0245 89 92 12/06 0226 99.4 94 32 100/80 89 Nasal 4.0L Cannula 12/06 0220 94 BIPAP 40% 12/06 0030 98.5 96 22 95/50 89 Nasal 3.0L Cannula 12/06 0004 94 Nasal 2.5L Cannula 12/05 2306 130/60 12/05 2257 98.8 110 26 134/90 90 Nasal 3.0L Cannula Last 24 Hours I&Os 12/08 1600 12/08 0800 12/08 0000 Intake Total 480 720 Output Total 1200 1450 Balance -720 -730 Intake, Oral 480 720 Output, Urine 1200 1450 Patient 170 lb Weight Laboratory Tests 12/08/16 1355: pH 7.41, pCO2 56 H, pO2 71 L, HCO3 35 H, ABG O2 Sat (Measured) 93.0 L, P-50 (Temp Corrected) N, Carboxyhemoglobin 0.8 L, O2 Concentration % 3LPM, O2 Delivery Method NC, Phlebotomy Draw Site RIGHT BRACHIAL 12/08/16 0615: CBC w Diff NO MAN DIFF REQ, RBC 3.61 L, MCV 89.1, MCH 28.8, RDW 20.7 H, MPV 9.8, Gran % 85.0 H, Lymphocytes % 6.8 L, Monocytes % 8.0, Eosinophils % 0.2, Basophils % 0 L, Absolute Granulocytes 3.1, Absolute Lymphocytes 0.3 L, Absolute Monocytes 0.3, Absolute Eosinophils 0, Absolute Basophils 0, PUBS MCHC 32.3 L 12/08/16 0600: Anion Gap 7, Estimated GFR 48 L, BUN/Creatinine Ratio 30.0 H, Magnesium 1.7 Microbiology Date/Time Procedure - Status Source Growth 12/06 0230 Legionella Antigen - COMP URINE ROUT 12/06 0230 Streptococcus pneumoniae Antigen (M - COMP URINE ROUT 12/06 0230 Urine Culture - COMP URINE ROUT 12/06 0205 Respiratory Culture - CAN LOWER RESP Cancelled: SPECIMEN NOT RECEIVED IN LABORATORY 12/06 0205 Gram Stain - CAN LOWER RESP Cancelled: SPECIMEN NOT RECEIVED IN LABORATORY 12/05 2355 Blood Culture - RES BLOOD Orders Procedure Date/time Status ARTERIAL BLOOD GAS (GEN) 12/09 0800 Active CBC WITHOUT DIFFERENTIAL 12/09 0600 Active BASIC ELECTROLYTES PLUS BUN&CR 12/09 0600 Active Regular Diet 12/08 L Active ARTERIAL BLOOD GAS (GEN) 12/08 1400 Complete Patient Safety Monitor 12/08 0906 Complete Thomas, Insertion/Removal/Asses 12/08 0906 Complete MAGNESIUM 12/08 0600 Complete CBC WITHOUT DIFFERENTIAL 12/08 0600 Complete BASIC ELECTROLYTES PLUS BUN&CR 12/08 0600 Complete PT Evaluate & Treat 12/08 UNK Active Therapeutic Activities 12/08 UNK Complete Therapeutic Exercise 12/08 UNK Complete PT EVAL MOD COMPLEX 30 MIN 12/08 UNK Complete ECHOCARDIOGRAM 12/08 UNK Active Regular Diet 12/07 B Complete Change service to 12/07 0811 Active Thomas, Insertion/Removal/Asses 12/07 0806 Complete Patient Safety Monitor 12/07 0805 Complete EKG 12/07 0800 Active THYROID STIMULATING HORMONE 12/07 0600 Complete FREE T4 12/07 0600 Complete CBC WITHOUT DIFFERENTIAL 12/07 0600 Complete BASIC ELECTROLYTES PLUS BUN&CR 12/07 0600 Complete Evaluate Swallowing 12/07 UNK Complete AEROSOL CHG 12/07 UNK Complete OXYGEN 12/07 UNK Complete OXYGEN DAILY CHARGE 12/07 UNK Complete PT Evaluate & Treat 12/07 UNK Active Nursing Misc 12/07 UNK Active MISSING MEDICATION FORM 12/07 UNK Active Heart Healthy Diet 12/06 D Complete Nothing by Mouth 12/06 B Complete THERAPIST ORDERS 12/06 2230 Complete THERAPIST ORDERS 12/06 2045 Complete THERAPIST ORDERS 12/06 1600 Complete Patient Safety Monitor 12/06 1544 Complete Thomas, Insertion/Removal/Asses 12/06 1544 Complete Transfer Disposition 12/06 1457 Active Transfer patient to 12/06 1348 Active RT: Evaluation 12/06 1223 Active ARTERIAL BLOOD GAS (GEN) 12/06 1143 Complete TROPONIN LEVEL 12/06 0800 Complete EKG 12/06 0800 Active THYROID STIMULATING HORMONE 12/06 0741 Complete FREE T4 12/06 0741 Complete LACTIC ACID 12/06 0652 Complete PROTHROMBIN TIME 12/06 0600 Complete MAGNESIUM 12/06 0600 Complete HEPATIC FUNCTION PANEL 12/06 0600 Complete GLYCOSYLATED HGB 12/06 0600 Complete CBC WITHOUT DIFFERENTIAL 12/06 0600 Complete BASIC ELECTROLYTES PLUS BUN&CR 12/06 0600 Complete ARTERIAL BLOOD GAS (GEN) 12/06 0500 Complete Skin Integrity Protocol 12/06 0259 Active Skin/Pressure Ulcer Assess (Sk 12/06 0259 Active Vital Signs 12/06 0258 Complete Teach/Educate 12/06 0258 Active Nutritional Intake, Monitor 12/06 0258 Active Isolation 12/06 0258 Active Intake & Output 12/06 0258 Complete Patient Care Conference 12/06 0258 Active Activity/Ambulation 12/06 0258 Complete URINE DRUGS OF ABUSE 12/06 0230 Complete Lab Add-on Test 12/06 0218 Active SWALLOW EVALUATION 12/06 0214 Active TRC EVALUATION (GEN) 12/06 0214 Complete OXYGEN SETUP (GEN) 12/06 0214 Complete Saline Lock 12/06 0214 Active Pathway - chart 12/06 0214 Active House Staff 12/06 0214 Active Code Status 12/06 0214 Active CULTURE,URINE 12/06 0205 Complete STREP PNEUMO URINARY ANTIGEN 12/06 0205 Complete LEGIONELLA URINARY ANTIGEN 12/06 0205 Complete URINALYSIS 12/06 0205 Complete ARTERIAL BLOOD GAS (GEN) 12/06 0151 Complete Patient Data 12/06 0057 Active OXYGEN SETUP (GEN) 12/06 0015 Active Saline Lock 12/06 0015 Active Admit to inpatient 12/06 0015 Active Vital Signs 12/06 0015 Complete Activity/Ambulation 12/06 0015 Active Code Status 12/06 0015 Complete Intake & Output 12/06 0003 Active OXYGEN SETUP CHG 12/06 UNK Complete OXYGEN 12/06 UNK Complete OXYGEN TRANSPORT 12/06 UNK Complete CONTIN. POS. AIRWAY PRESS. CHG 12/06 UNK Complete BIPAP 12/06 UNK Complete Lab Add-on Test 12/06 UNK Active VTE Mechanical Prophylaxis 12/06 UNK Active Vital Signs 12/06 UNK Active Patient Safety Monitor 12/06 UNK Complete Restraint- Medical 12/06 UNK Complete Precautions 12/06 UNK Active Nursing Misc 12/06 UNK Active Intake & Output 12/06 UNK Complete Thomas, Insertion/Removal/Asses 12/06 UNK Complete PHOSPHORUS 12/05 2320 Complete ETHANOL 12/05 232 Complete DIRECT BILIRUBIN 12/05 232 Complete B-TYPE NATRIURETIC PEP (BNP) 12/05 232 Complete BLOOD CULTURE 12/05 224 Active TROPONIN LEVEL 12/05 224 Complete MAGNESIUM 12/05 224 Complete COMPREHENSIVE METABOLIC PANEL 12/05 2246 Complete CBC WITHOUT DIFFERENTIAL 12/05 2246 Complete EKG 12/05 2235 Active Disposition Summary Disposition Principal Diagnosis: see above Additional Diagnosis: see above Discharge Disposition: str Discharge Instructions General Discharge Information Code Status: Full Code Patient's Diet: regular Patient's Activity: self limited Follow-Up Instructions/Appts: Follow-up with Dr. Alphonse Phoenix, Fredrick Bajwa MD Medications at Discharge Discharge Medications: Continue taking these medications: Furosemide (Lasix) 40 MG TABLET 1 Tablet ORAL DAILY Comments: GIVEN 03/21/16 AT 0800 Metoprolol Tartrate (Metoprolol Tartrate) 25 MG TABLET 1 Tablet ORAL TWICE DAILY Comments: GIVEN 03/21/16 AT 0800 Docusate Sodium (Docusate Sodium) 100 MG CAPSULE 1 Capsule ORAL DAILY Comments: GIVEN 03/21/16 AT 0800 Cyanocobalamin (Vitamin B-12) 1,000 MCG TABLET 1 Tablet ORAL DAILY Comments: NOT GIVEN IN HOSPITAL Aspirin (Aspirin*) 81 MG TAB.CHEW 81 Milligram ORAL DAILY Days = 30 Ferrous Sulfate (Ferrous Sulfate) 325 MG (65 MG IRON) TABLET 325 Milligram ORAL Every Day Pantoprazole Sodium (Protonix) 20 MG TABLET.DR 40 Milligram ORAL Every Day Tiotropium [place] (Spiriva) 18 MCG CAP.W.DEV 18 Microgram Inhale through mouth Every Day Budesonide/Formoterol Fumarate (Symbicort 160-4.5 Mcg Inhaler) 160 MCG-4.5 MCG/ ACTUATION HFA.AER.AD 2 Microgram Inhale through mouth TWICE DAILY Mirtazapine (Remeron) 15 MG TABLET 7.5 Milligram ORAL AT BEDTIME as needed for SLEEP Trazodone HCl (Trazodone HCl) 50 MG TABLET 12.5 Milligram ORAL Every Day as needed for SLEEP Melatonin (Melatonin) 3 MG TABLET 3 Milligram ORAL Every Day as needed for SLEEP Start taking the following new medications: Moxifloxacin HCl (Moxifloxacin HCl) 400 MG TABLET 1 Tablet ORAL DAILY Days = 1 No Refills Dronedarone HCl (Multaq) 400 MG TABLET 1 Milligram ORAL TWICE DAILY Qty = 30 No Refills Prednisone (Prednisone) 10 MG TABLET 1 Tablet ORAL See Instructions Qty = 10 No Refills Instructions: On Take 12/10 TAKE 3 TABS DAILY 12/11-12/12 TAKE 2 TAB DAILY 12/13-12/14 TAKE 1 TAB DAILY AND THEN STOP. Copies To: VALENTE MERAZ,ALPHONSE Peterson; SRINIVASA MERAZ,FREDRICK Stephenson
--- NOTE | 2016-12-08 14:57 | PN- Cardiology ---
Subjective Subjective: * Patient has mild shortness of breath. * sinus rhythm * creatinine 1.4 * platelets remain low at 79 Objective Vital Signs and I&Os Vital Signs Date Time Temp Pulse Resp B/P Pulse O2 O2 Flow FiO2 Ox Delivery Rate 12/08 0933 78 150/70 12/08 0800 Nasal 3.0L Cannula 12/08 08 97.8 78 20 150/70 92 Nasal 4.0L Cannula 12/08 0131 77 95 12/08 0000 96 Nasal 3.0L Cannula 12/07 2043 80 142/66 12/07 1645 98.0 78 20 128/74 92 Nasal 3.0L Cannula 12/07 1600 92 Nasal 3.0L Cannula 12/07 1553 97.6 77 18 124/70 90 Intake & Output 12/08 1600 12/08 0800 12/08 0000 12/07 1600 12/07 0800 12/07 0000 Intake Total 992 247 9504 510 1250 Output Total 1200 1450 350 400 250 Balance -720 -730 034 109 2983 Intake, IV 270 650 Intake, Oral 105 683 9009 240 600 Number 1 Bowel Movements Output, Urine 1200 1450 350 400 250 Patient 170 lb Weight Physical Exam: General: WD/ WN male in NAD; alert and oriented x 3 Neck: no JVD Heart: RRR with ectopy Lungs: decreased breath sounds bilaterally Extremities: no edema Assessment/Plan Assessment/Plan * This patient has low platelets and is a poor candidate for chronic anticoagulation. As such, he would benefit from being in a sinus rhythm to avoid the increased risk of a CVA in the setting of atrial fibrillation. He has fortunately converted into a sinus rhythm. I recommend starting Multaq at 400mg BID to maintain his sinus rhythm. Continue aspirin. * Obtain an echocardiogram to assess his left atrial size and RV pressures. * There is no evidence of decompensated CHF at this time. Continue telemetry? Yes
[2016-12-08 16:15] VITALS: BP 140/78
--- NOTE | 2016-12-08 21:01 | NUR ---
pt is A+Ox3,slightly forgetful. c/o mild pain to bilateral shoulders which he states it is not different than its been. declined tylenol. crackles present at bases, no c/o SOB, on O2 3L. congested but non-productive cough. no edema present. safety maintained. bed at lowest position. bed alarm on. call light in reach
[2016-12-08 23:29] VITALS: BP 118/68
--- NOTE | 2016-12-09 08:08 | PN- Housestaff ---
Subjective Follow-up For: Respiratory Failure 2/2 Pneumonia Subjective: Seen and examined this morning. He was lying comfortably in bed in no acute distress. He remains on 3 L nasal cannula oxygen saturating in high 90s. Remains afebrile, feeling endorses cough but getting better less productive. Other vitals remain within limits. No other complaints Review of Systems Constitutional: Denies: chills, fever. Cardiovascular: Denies: chest pain, palpitations. Respiratory: Reports: see HPI, cough, short of breath, sputum production. Gastrointestinal: Denies: abdominal pain, constipation, diarrhea, nausea, vomiting. Genitourinary: Denies: dysuria, frequency. Objective Last 24 Hrs of Vital Signs/I&O Vital Signs Date Time Temp Pulse Resp B/P Pulse O2 O2 Flow FiO2 Ox Delivery Rate 12/09 0916 97.9 72 18 112/60 97 Nasal 3.0L Cannula 12/09 0904 72 112/60 12/09 0904 72 112/60 12/09 0800 Nasal 3.0L Cannula 12/09 0000 94 Nasal 3.0L Cannula 12/08 2329 97.8 62 18 11868 93 Nasal 3.0L Cannula 12/08 2054 81 118/68 12/08 2054 81 118/68 12/08 1714 79 140/78 12/08 1615 97.6 79 18 140/78 93 Nasal 3.0L Cannula Intake & Output 12/09 1600 12/09 0800 12/09 0000 Intake Total 250 840 Output Total 475 600 Balance -225 240 Intake, Oral 250 840 Output, Urine 475 600 Physical Exam General Appearance: Alert, Oriented X3, Cooperative, No Acute Distress Cardiovascular: Regular Rate, Normal S1, Normal S2, No Murmurs Lungs: mild expiratory wheeze in lower bilateral lung zones Abdomen: Normal Bowel Sounds, Soft, No Tenderness Extremities: No Clubbing, No Cyanosis, No Edema Current Medications: Current Medications Sig/Linda Start time Last Medication Dose Route Stop Time Status Admin Acetaminophen 650 MG Q6P PRN 12/06 0215 AC PO Albuterol Sulfate 2 PUF Q4 PRN 12/06 1600 AC 12/07 INH 2000 Aspirin 81 MG DAILY 12/06 1000 AC 12/09 PO 0903 Budesonide/ 2 PUF BID 12/06 1000 AC 12/09 Formoterol Fumarate INH 09 Docusate Sodium 100 MG DAILY 12/06 1000 AC 12/09 PO 0903 Dronedarone 400 MG BID 12/08 1514 AC 12/09 PO 0904 Ferrous Sulfate 325 MG DAILY 12/06 1000 AC 12/09 PO 0903 Furosemide 40 MG DAILY 12/06 1000 AC 12/09 PO 0904 Guaifenesin 600 MG Q12 12/06 1000 AC 12/09 PO 0904 Magnesium Oxide 800 MG ONE ONE 12/08 1999 DC 12/08 PO 12/08 Metoprolol Tartrate 25 MG BID 12/06 1000 AC 12/09 PO 0904 Mirtazapine 7.5 MG AT BEDTIME NEED.. 12/06 0400 AC PO Moxifloxacin HCl 400 MG DAILY 12/08 1000 AC 12/09 PO 0903 Polyethylene Glycol 17 GM DAILY 12/08 1034 AC PO Prednisone 30 MG DAILY 12/09 1000 AC 12/09 PO 0904 Senna 187 MG AT BEDTIME PRN 12/07 1115 AC 12/07 PO 1438 Tiotropium [place] 1 PUF DAILY 12/06 1000 AC 12/09 INH 0902 Trazodone HCl 25 MG AT BEDTIME 12/07 220 AC 12/08 PO 2054 Last 24 Hrs of Lab/Rocco Results Last 24 Hrs of Labs/Mics: Laboratory Tests 12/09/16 0615: Anion Gap 5, Estimated GFR 48 L, BUN/Creatinine Ratio 27.9 H, CBC w Diff NO MAN DIFF REQ, RBC 3.90 L, MCV 89.2, MCH 28.9, RDW 19.8 H, MPV 9.6, Gran % 79.6 H, Lymphocytes % 7.3 L, Monocytes % 13.0 H, Eosinophils % 0.1, Basophils % 0 L, Absolute Granulocytes 4.2, Absolute Lymphocytes 0.4 L, Absolute Monocytes 0.7 H, Absolute Eosinophils 0, Absolute Basophils 0, PUBS MCHC 32.3 L 12/08/16 1355: pH 7.41, pCO2 56 H, pO2 71 L, HCO3 35 H, ABG O2 Sat (Measured) 93.0 L, P-50 (Temp Corrected) N, Carboxyhemoglobin 0.8 L, O2 Concentration % 3LPM, O2 Delivery Method NC, Phlebotomy Draw Site RIGHT BRACHIAL Assessment/Plan Assessment: 86-year-old male, 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 # Acute hypercapneic and hypoxic respiratory failure secondary to pneumonia: He has underlying end-stage COPD, severe pulmonary hypertension with cor pulmonale, history of multidrug resistant organisms, upon this admission presented with altered mental status, ABG upon presentation showed 7.30/69H/65L/ 34 , repeat ABGs after BiPAP 7.47/45/89/32, repeat ABGs showed CO2 of 56, patient has been off of BiPAP overnight, clinical status has improved pulmonology has recommended that he stable for discharge today. BC(ngtd), LRC(pending), urine legionella and urine strep pneumo negative. He was given ceftaz,azithro in ED later switched to IV moxifloxacin(12/06-), switch to oral moxifloxacin today to cover for gram negatives as patient has grown multidrug-resistant bugs in the past 2 complete a 5 day course, Prednisone by mouth 40 mg today followed by taper , Mucinex 600bid, TRC/nebs. # Acute on chronic heart failure, hypotension Last Echo February 2016, EF 55%, repeat echo pending Continue lasix 40 daily Cr today 1.4) Hold metoprolol if SBP <100 As per cardio patient is a poor candidate for chronic anticoagulation, he has been in sinus rhythm on his own overnight, will continue to monitor it. # Acute kidney injury BUN/Cr: 36H/2H Jul 2016: /1.2 Follow kidney functions: creatinine this a.m. 1.4 # Pancytopenia due to myelodysplastic syndrome # Hypertension, paroxysmal atrial fibrillation Continue metoprolol 25 bid (hold if hypotensive) blood pressure this a.m. SBP 142-150 #Hyperkalemia resolved, Levels today 4.8 # Other home meds Continue docusate 100 daily Continue pantoprazole 40 mg daily Continue aspirin 81mg daily Continue trazodone 25 mg, mirtazapine 7.5 mg, melatonin 3 mg at bedtime Diet: Regular diet DVT ppx: [facility] FULL CODE Problem List: 1. COPD (chronic obstructive pulmonary disease) 2. Myelodysplasia (myelodysplastic syndrome) 3. PNEUMONIA Pain Ratin Pain Location: None Pain Goal: Remain pain free Pain Plan: Mild pain pathway Tomorrow's Labs & Rationales: None patient to be discharged Discharge Plan Discharge Disposition: STR/NH Stable for Discharge? Yes Anticipated Discharge (Day): today If Discharged Today/In 24 Hrs: W-10/discharge paper done, DC summary done, CMR done
[2016-12-09 08:11] LABS: ABSOLUTE BASOPHIL COUNT 0 /CUMM (0.0-0.2); ABSOLUTE EOSINOPHIL COUNT 0 /CUMM (0.0-0.7); ABSOLUTE GRANULOCYTE CT 4.2 /CUMM (1.4-6.5); ABSOLUTE LYMPH COUNT 0.4 /CUMM (1.2-3.4); ABSOLUTE MONOCYTE COUNT 0.7 /CUMM (0.10-0.60); BASOPHIL % 0 % (0.0-2.0); EOSINOPHIL % 0.1 % (0-5); GRANULOCYTE % 79.6 % (42.2-75.2); HEMATOCRIT 34.8 % (42-52); MEAN CORPUSCULAR HGB 28.9 PG (27.0-31.0); MEAN CORPUSCULAR HGB CONC 32.3 G/DL (33.0-37.0); MEAN CORPUSCULAR VOLUME 89.2 FL (80.0-94.0); MEAN PLATELET VOLUME 9.6 FL (7.4-10.4); PLATELET COUNT 104 /CUMM (130-400); RBC DISTRIBUTION WIDTH 19.8 % (11.5-14.5); WHITE BLOOD CELL COUNT 5.2 /CUMM (4.8-10.8)
--- NOTE | 2016-12-09 08:48 | Patient Discharge Instructions ---
Discharge Instructions General Discharge Information You were seen/treated for: Acute hypercarbic hypoxemic respiratory failure Community acquired pneumonia with history of multidrug-resistant organisms End-stage COPD Special Instructions: Please f/u with your primary care physician, track repairer and energy operations vice president in one week, refferals provided. please complete Moxifloxacin and prednisone as instructed. you have been started on a new medication Multaq, please get an ekg on 12/11/16 to ensure QT stability as it can cause QT prolongation, please follow up with energy operations vice president for further evaluation while on Multaq. Diet Continue normal diet: Yes Recommended Diet: Regular Activity Full Activity/No Limits: Yes Acute Coronary Syndrome Inclusion Criteria At DC or during hospital stay patient has or had the following: ACS DIAGNOSIS No Discharge Core Measures Meds if any: Prescribed or Continued at Discharge Meds if any: NOT Prescribed or Continued at Discharge Congestive Heart Failure Inclusion Criteria At DC or during hospital stay patient has or had the following: CHF DIAGNOSIS No Discharge Core Measures Meds if any: Prescribed or Continued at Discharge Meds if any: NOT Prescribed or Continued at Discharge Cerebrovascular accident Inclusion Criteria At DC or during hospital stay patient has or had the following: CVA/TIA Diagnosis No Discharge Core Measures Meds if any: Prescribed or Continued at Discharge Meds if any: NOT Prescribed or Continued at Discharge Venous thromboembolism Inclusion Criteria VTE Diagnosis No VTE Type NONE VTE Confirmed by (Test) NONE Discharge Core Measures - Per Current guidelines, there needs to be overlap - treatment for the first 5 days of Warfarin therapy. - If discharged on Warfarin prior to 5 days of - overlap therapy, the patient will need to be - assessed for post discharge needs including - *Post discharge parental anticoagulation - *Warfarin and/or parental anticoagulation education - *Follow up date to check INR post discharge At least 5 days overlap therapy as Inpatient No Meds if any: Prescribed or Continued at Discharge Note: Overlap Therapy is Warfarin and Anticoagulant Meds if any: NOT Prescribed or Continued at Discharge
[2016-12-09 09:16] VITALS: BP 112/60
[2016-12-09] MEDS ORDERED: MOXIFLOXACIN H400 M2 PO (10:52)
[2016-12-09] MEDS ORDERED: PREDNISONE10 M2 PO (10:52)
--- NOTE | 2016-12-09 11:01 | PN- Pulmonary ---
Subjective HPI/Critical Care Issues: Much improved Back to baseline Wishes to return to rehab Objective Current Medications: Current Medications Sig/Linda Start time Last Medication Dose Route Stop Time Status Admin Acetaminophen 650 MG Q6P PRN 12/06 0215 AC PO Albuterol Sulfate 2 PUF Q4 PRN 12/06 1600 AC 12/07 INH 2000 Aspirin 81 MG DAILY 12/06 1000 AC 12/09 PO 0903 Budesonide/ 2 PUF BID 12/06 1000 AC 12/09 Formoterol Fumarate INH 0902 Docusate Sodium 100 MG DAILY 12/06 1000 AC 12/09 PO 0903 Dronedarone 400 MG BID 12/08 1514 AC 12/09 PO 0904 Ferrous Sulfate 325 MG DAILY 12/06 1000 AC 12/09 PO 0903 Furosemide 40 MG DAILY 12/06 1000 AC 12/09 PO 0904 Guaifenesin 600 MG Q12 12/06 1000 AC 12/09 PO 0904 Magnesium Oxide 800 MG ONE ONE 12/08 2000 DC 12/08 PO 12/08 Metoprolol Tartrate 25 MG BID 12/06 1000 AC 12/09 PO 0904 Mirtazapine 7.5 MG AT BEDTIME NEED.. 12/06 0400 AC PO Moxifloxacin HCl 400 MG DAILY 12/08 1000 AC 12/09 PO 0903 Polyethylene Glycol 17 GM DAILY 12/08 1034 AC PO Prednisone 30 MG DAILY 12/09 1000 AC 12/09 PO 0904 Prednisone 40 MG DAILY 12/07 1108 DC 12/08 PO 0933 Senna 187 MG AT BEDTIME PRN 12/07 1115 AC 12/07 PO 1438 Tiotropium [place] 1 PUF DAILY 12/06 1000 AC 12/09 INH 0902 Trazodone HCl 25 MG AT BEDTIME 12/07 2200 AC 12/08 PO 205 Vital Signs & I&O Last 24 Hrs of Vitals and I&O: Vital Signs Date Time Temp Pulse Resp B/P Pulse O2 O2 Flow FiO2 Ox Delivery Rate 12/09 915 97.9 72 18 112/60 97 Nasal 3.0L Cannula 12/09 0904 72 112/60 12/09 0904 72 112/60 12/09 0800 Nasal 3.0L Cannula 12/09 0000 94 Nasal 3.0L Cannula 12/089 97.8 62 18 118/68 93 Nasal 3.0L Cannula 01/17 2055 81 118/68 12/08 2054 81 118/68 12/08 1714 79 140/78 12/08 1615 97.6 79 18 14078 93 Nasal 3.0L Cannula Intake & Output 12/09 1600 12/09 0800 12/09 0000 Intake Total 250 840 Output Total 475 600 Balance -225 240 Intake, Oral 250 840 Output, Urine 475 600 Impression/Plan Impression/Plan Impression/Plan: SIGNIFICANT DATA Chest x-ray showed? Retrocardiac opacity probable atelectasis versus consolidation Previous CT scan of the chest had shown bilateral infiltrates with emphysema Continues to have pancytopenia with previous history of myelodysplasia ABG reviewed baseline PCO2 seems to have come down to [address] scan of the head reviewed nil acute Physical Exam General Appearance alert awake and oriented Skin chronic venous stasis changes on both lower extremities. HEENT Mucous Membr. moist/pink, pupils pinpoint Neck JVD noted Cardiovascular Regular Rate, Normal S1, Normal S2 Lungs rhonchi heard, no wheezing. Abdomen Normal Bowel Sounds, noted some guarding especially in the lower abdomen. Neurological unable to assess. not following commands. Extremities cold extremities. , no palpable pulse on the right dorsalis pedis. 2 + left dorsalis pedis IMPRESSION This is a gentleman with severe COPD, significant alcohol use, previous history of biventricular heart failure, very severe pulmonary hypertension which appears to be secondarily related to severe COPD and previous left heart dysfunction from alcohol, hyponatremia, previous myelodysplastic syndrome, hence immunosuppressed, chronic thrombocytopenia, has the issues * REsolving Acute hypercarbic and hypoxic resp failure in a pt with endstage lung disease with left lower lobe infiltrate with worsening mental status. He has had recurrent hospitalizations and is now in a rehab [facility], with previous history of multidrug resistant organisms * History of sig etoh and myelodysplasia and hence immunosuppressed * Severe COPD, mild wheezing * Worsening mental status due to hypercarbia and has myoclonic jerks needs to be followed * Severe pulmonary hypertension with cor pulmonale due to severe COPD and as well as previous left heart dysfunction * Pervious etoh withdrawal syndrome * CKD stage 4 with crystal * Electrolyte abnormalities * Previous history of nonischemic cardiomyopathy with low ejection fraction which seems to have improved recently, wiht previous history of afib, now ekg showing prob afib and pt now currently not a candidate for anticoag * Previous qtc prolongation RECOMMENDATION * Stable for dc, Pt has not been using bipap and his clinical status has improved without bipap and can be dcd today * OOB to chair * Rx constipation, agg bowel reg * po moxi total abx of 7 days * Po prednisone and taper in 7 days Will follow
[2016-12-09] MEDS ORDERED: MULTAQ400 M1 PO (11:06)
[2016-12-09 11:35] VITALS: BP 112/60
--- NOTE | 2016-12-09 13:06 | ECHOCARDIOGRAM REPORT ---
SOURAV WARD Age: 86 : 1930 Gender: M Exam Date: 12/08/2016 19:33 Exam Location: 1 [address] Ht (in): 65 Wt (lb): 180 BSA: 1.96 BP: 150 / 70 Ordering Physician: NAPOLEON MCKEON MD Referring Physician: Danny Givens MD, PhD Technologist: Mali Hinson [facility] Room Number: 171 Indications: HEART FAILURE Rhythm: Sinus Technical Quality: Fair FINDINGS Left Ventricle Normal size left ventricle. Mild concentric left ventricular hypertrophy. Abnormal septal motion consistent with an intraventricular conduction defect. No other obvious regional wall motion abnormalities. Normal left ventricular ejection fraction visually estimated at >65%. Right Ventricle Severe right ventricular dilatation. Reduced right ventricular global systolic function. Right Atrium Mild right atrial dilatation. Left Atrium Mild left atrial dilatation. Mitral Valve Mildly calcified mitral valve annulus. Mildly thickened mitral valve. Mild mitral regurgitation. Aortic Valve Trileaflet aortic valve. Diffuse mild to moderate thickening of the aortic valve cusps with mildly reduced excursion. No aortic valve stenosis or regurgitation. Tricuspid Valve Structurally normal tricuspid valve. Moderate tricuspid regurgitation. Right ventricular systolic pressure estimated at 34 mmHg. Pulmonic Valve Pulmonic valve not well visualized, grossly normal. No pulmonic regurgitation. Pericardium No pericardial effusion. Great Vessels Normal size aortic root. CONCLUSIONS Normal size left ventricle. Mild concentric left ventricular hypertrophy. Abnormal septal motion consistent with an intraventricular conduction defect. No other obvious regional wall motion abnormalities. Normal left ventricular ejection fraction visually estimated at > 65%. Severe right ventricular dilatation. Reduced right ventricular global systolic function. Mild right atrial dilatation. Mild left atrial dilatation. Mild mitral regurgitation. No aortic valve stenosis or regurgitation. Moderate tricuspid regurgitation. Right ventricular systolic pressure estimated at 34 mmHg. Chase Quan M.D. (Electronically Signed) Final Date: 09 December 2016 13:06 MEASUREMENTS (Male / Female) Normal Values 2D ECHO LV Diastolic Diameter PLAX 4.2 cm 4.2 - 5.9 / 3.9 - 5.3 cm LV Systolic Diameter PLAX 2.5 cm 2.1 - 4.0 cm LV Fractional Shortening PLAX 40.5 % 25 - 46 % LV Ejection Fraction 2D Teich 71.6 % IVS Diastolic Thickness 1.2 cm LVPW Diastolic Thickness 1.2 cm LV Relative Wall Thickness 0.6 RV Internal Dim ED PLAX 5.3 cm 1.9 - 3.8 cm LVOT Diameter 2.0 cm Aortic Root Diameter 3.0 cm LA Systolic Diameter LX 4.2 cm 3.0 - 4.0 / 2.7 - 3.8 cm LA Volume 51.0 cm 18 - 58 / 22 - 52 cm Ascending Aorta Diameter 3.1 cm DOPPLER AV Peak Velocity 156.0 cm/s AV Peak Gradient 9.7 mmHg AV Mean Velocity 113.0 cm/s AV Mean Gradient 6.0 mmHg AV Velocity Time Integral 29.8 cm LVOT Peak Velocity 91.0 cm/s LVOT Peak Gradient 3.3 mmHg LVOT Mean Velocity 66.1 cm/s LVOT Mean Gradient 2.0 mmHg LVOT Velocity Time Integral 15.5 cm LVOT Stroke Volume 48.7 cm AV Area Cont Eq vti 1.6 cm AV Area Cont Eq pk 1.8 cm MV Peak Velocity 99.2 cm/s MV Peak Gradient 3.9 mmHg MV Mean Velocity 51.9 cm/s MV Mean Gradient 1.0 mmHg Mitral E Point Velocity 86.9 cm/s Mitral A Point Velocity 63.7 cm/s Mitral E to A Ratio 1.4 MV PHT Velocity 105.0 cm/s MV Deceleration [place] 381.0 cm/s MV Pressure Half Time 82.7 ms MV Area PHT 2.7 cm MV Deceleration Time 256.0 ms TR Peak Velocity 268.0 cm/s TR Peak Gradient 28.7 mmHg Right Atrial Pressure 5.0 mmHg Pulmonary Artery Systolic Pressu 33.7 mmHg Right Ventricular Systolic Press 33.7 mmHg PV Peak Velocity 108.0 cm/s PV Peak Gradient 4.7 mmHg PV Mean Velocity 75.3 cm/s PV Mean Gradient 3.0 mmHg PV Velocity Time Integral 25.0 cm LV E' Lateral Velocity 10.9 cm/s Mitral E to LV E' Lateral Ratio 8.0 LV E' Septal Velocity 4.8 cm/s Mitral E to LV E' Septal Ratio 17.9
== END 2016-12-09 14:10 | DRG 177 ==
LOC: ENRESERV → ENRESERVTM → CANRESERV → ENRESERVDT → ERH 22:34 → ERHI 12-06 00:15 → ENPENDDIS 12-06 00:15 → 1NO 12-06 00:15 → 2NA 12-06 01:51 → 1NO 12-06 15:08
PROVIDERS: Emergency Medicine; Internal Medicine; Internal Medicine Hematology & Oncology; Student in an Organized Health Care Education/Training Program; ADMIT Student in an Organized Health Care Education/Training Program
DX: J15.6 Pneumonia due to other Gram-negative bacteria (principal); J96.22 Acute and chronic respiratory failure with hypercapnia; J96.21 Acute and chronic respiratory failure with hypoxia; I42.9 Cardiomyopathy, unspecified; N18.4 Chronic kidney disease, stage 4 (severe); I13.0 Hypertensive heart and chronic kidney disease with heart failure and stage 1 through stage 4 chronic kidney disease, or unspecified chronic kidney disease; I27.2 Other secondary pulmonary hypertension; I50.32 Chronic diastolic (congestive) heart failure; Z87.891 Personal history of nicotine dependence; Z99.81 Dependence on supplemental oxygen; B18.2 Chronic viral hepatitis C; J44.9 Chronic obstructive pulmonary disease, unspecified; I48.91 Unspecified atrial fibrillation; D46.9 Myelodysplastic syndrome, unspecified; F10.20 Alcohol dependence, uncomplicated
CPT/HCPCS: 1NP; 36415; 80307; 81001; 82436; 87040; 87070; 87086; 87449; 87450; 93005; 93010; 93306; 96374; 96375; 97110-GO; 97116-GO; 97162-GP; 97530-GO; G0480; J0456; J0713; J2280; J2920; J2930; J3370; J3490; J7060; J7512

== ENCOUNTER 2017-02-12 17:23 | Inpatient (IN) | payer OTHER, MEDICARE ==
[~2017-02-12 17:23] MED LIST changes: +FERROUS SULFAT325 M3 PO; +MELATONIN3 M4 PO; +MULTAQ400 M1 PO; +PREDNISONE10 M2 PO; +PROTONIX20 M1 PO; +REMERON15 M2 PO; +SPIRIVA18 MCG INH; +SYMBICORT 16010.2 GM INH; +TRAZODONE HCL50 M1 PO
--- NOTE | 2017-02-12 17:40 | NUR ---
PT TO [id number] BIBA FROM [facility] FOR UNRESPONCIVNESS AND CYANOSIS PER [facility] NURSE. WHEN [facility] ARRIVED PT RESPONDED TO VOICE. ON ARRIVAL PT LETHARGIC, CONFUSED, ORIENTED TO SELF, O2SAT 96% ON 4L O2 NC. HX OF DEMENTIA,COPD,RESP FAILURE, AFIB,HTN, HEP C, MRSA,SHINGLES, PNA. PT ON O2 2L NC AT BASELINE, RECEIVED ALBUTEROL NEB TX AT 3PM. PT AFEBRILE, VSS. JAVID LEDESMA AT BEDSIDE FOR PT EVAL.
--- NOTE | 2017-02-12 17:48 | ED AMS/SEIZURE/WEAK/DIZZY ---
See Addendum History of Present Illness General Chief Complaint: General Adult Stated Complaint: BIBA WITH UNRESPONSIVE,NAILBED AND LIPS BLUE Source: patient, EMS, W10 Exam Limitations: no limitations Allergies Coded Allergies: lisinopril (Severe, MOUTH SWELLING 02/12/16) Penicillins (Intermediate, HIVES 02/12/16) lorazepam (HALLUCINATION 02/12/16) Reconcile Medications Acetaminophen (Acephen) 650 MG SUPP.RECT 1 SUPP CA Q4H PRN PAIN/TEMP>/101 ( Reported) Acetaminophen (Q-Pap) 325 MG TABLET 2 TAB PO Q4H PRN PAIN/TEMP>/101 (Reported ) Albuterol Sulfate 2.5 MG/3 ML (0.083 %) VIAL.NEB 1 Vial INH/GABBY Q6H PRN SOB/ WHEEZE (Reported) Alprazolam 0.25 MG TABLET 1 TAB PO Q6H PRN ANXIETY (Reported) Aspirin (Aspirin*) 81 MG TAB.CHEW 81 MG PO DAILY heart health Bisacodyl 10 MG SUPP.RECT 1 SUP RC PRN CONSTIPATION (Reported) Budesonide/Formoterol Fumarate (Symbicort 160-4.5 Mcg Inhaler) 160 MCG-4.5 MCG/ ACTUATION HFA.AER.AD 2 PUFF INH Q12H RESP (Reported) Cyanocobalamin (Vitamin B-12) 1,000 MCG TABLET 1 TAB PO DAILY SUPPLEMENT ( Reported) Docusate Sodium 100 MG CAPSULE 1 CAP PO DAILY CONSTIPATION (Reported) Dronedarone HCl (Multaq) 400 MG TABLET 1 MG PO BID heart health Ferrous Sulfate 325 MG (65 MG IRON) TABLET 325 MG PO DAILY SUPPLEMENT ( Reported) Furosemide (Lasix) 20 MG TABLET 1 TAB PO DAILY HTN (Reported) Guaifenesin (Q-Tussin) 100 MG/5 ML LIQUID 10 ML PO Q6H PRN COUGH (Reported) Hydroxyzine HCl 25 MG TABLET 1 TAB PO DAILY PRN ITCH (Reported) Magnesium Hydroxide (Milk Of Magnesia) 400 MG/5 ML ORAL.SUSP 30 ML PO DAILY PRN CONSTIPATION (Reported) Melatonin 3 MG TABLET 3 MG PO QHS SLEEP (Reported) Metoprolol Tartrate 25 MG TABLET 1 TAB PO Q12H HYPERTENSION (Reported) Mirtazapine (Remeron) 15 MG TABLET 7.5 MG PO AT BEDTIME SLEEP (Reported) Na Phos,M-B/Na Phos,Di-Ba (Fleet Enema) 19 GRAM-7 GRAM/118 ML ENEMA 1 E RC DAILY PRN CONSTIPATION (Reported) Pantoprazole Sodium (Protonix) 20 MG TABLET.DR 40 MG PO DAILY GI (Reported) Sodium Chloride (Deep Sea) 0.65 % SPRAY 1 SPRAY NASB Q6H PRN CONGESTION ( Reported) Tiotropium [place] (Spiriva) 18 MCG CAP.W.DEV 18 MCG INH DAILY RESPIRATORY ( Reported) Trazodone HCl 50 MG TABLET 12.5 MG PO QHS SLEEP (Reported) Triage Nurses Notes Reviewed? 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 According to the W 10 the patient was unresponsive with cyanotic lips. On EMS arrival however the patient eyes closed was answering questions appropriately. On arrival the patient is without any complaints. He denies chest pain shortness of breath fever chills no abdominal pain nausea vomiting no headache (BALTAZAR HUA,KALEB) Vital Signs & Intake/Output Vital Signs & Intake/Output Vital Signs Date Time Temp Pulse Resp B/P Pulse O2 O2 Flow FiO2 Ox Delivery Rate 02/127 96.0 76 16 145/61 93 Nasal 4.5L Cannula 02/12 1914 96.2 98 16 131/76 94 Nasal 4.0L Cannula 02/12 1748 96 Nasal 4.0L Cannula 02/12 173 96.0 103 18 117/56 96 Nasal 4.0L Cannula Past History Travel History Traveled to [place] past 21 day No Medical History Any Pertinent Medical History? 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 No (KALEB BURGESS) Review of Systems Review of Systems Constitutional: Reports: see HPI. All Other Systems: Reviewed and Negative Comments Review of systems: See HPI, All other systems negative. Constitutional, no chills no fever, no malaise HEENT: No visual changes no sore throat no congestion, Cardiovascular: No chest pain , no palpitation , no orthopnea no ankle swelling Skin, no jaundice no rashes, no change in skin Respiratory: No dyspnea no cough no sputum no hemoptysis GI: No nausea no vomiting, no diarrhea, no bloating/constipation : No dysuria Muscle skeletal: No joint pain, no joint swelling, no back pain, no neck pain, Neurologic: No numbness no headache Psych: No stress Heme/endocrine: No bruising no bleeding Immunology: No lymphadenopathy, (KALEB BURGESS) Physical Exam Physical Exam General Appearance: well developed/nourished, no apparent distress, alert, lethargic (AROUSABLE) Comments: Elderly male lethargic however arousable HEENT: Normal EENT exam; PERRL, EOMI, no nystagmus. HEAD is atraumatic. moist mucous membranes. Neck: Supple, normal range of motion Back: Nontender, no CVA tenderness. Full range of motion Cardiovascular: Regular rate and rhythms no murmurs rubs Respiratory: Chest nontender.There were no bony deformities, no asymmetry. No respiratory distress. Patient speaking in full complete sentences. Breath sounds clear to auscultation bilaterally: NO W/R/R Abdomen: Soft, nontender nondistended, no appreciable organomegaly. Normal bowel sounds. No rebound/guarding, No ascites. Extremity:2 + b/l le edema, hyperpigmented skin, full range of motion of extremities, Neuro: Alert oriented x3, motor sensory normal, cranial nerves II through XII grossly intact. There were no obvious focal neurologic abnormalities. Skin: No appreciable rash on exposed skin, skin is warm and dry. Psych: Mood and affect is normal, memory and judgment is normal. Core Measures ACS in differential dx? Yes CVA/TIA Diagnosis: No Severe Sepsis Present: No Septic Shock Present: No (BALTAZAR HUA,KALEB) Progress Differential Diagnosis: arrythmia, alcohol intoxication, anemia, CVA/stroke, dehydration, drug intoxication, electrolyte imbalance, hypoglycemia, hypoxia, intracranial Hem., intracranial mass/tumor, pneumonia, subarachnoid Hem., UTI/ pyelo, HYPERCARBIC HYPOXEMIC RESPIRATORY FAILURE Diagnostic Imaging: Viewed by Me: Radiology Read, CT Scan. Discussed w/RAD: Radiology Read, CT Scan. Radiology Impression: PATIENT: SOURAV WARD PRESENT AGE: 86 PATIENT ACCOUNT NO: [id number] : 31 LOCATION: [facility] ORDERING PHYSICIAN: KALEB HUA SERVICE DATE: 02/12/17 EXAM TYPE: RAD - XRY-PORTABLE CHEST XRAY EXAMINATION: XR PORTABLE CHEST CLINICAL INFORMATION: Altered mental status. COMPARISON: Portable chest x-ray 12/05/2016. TECHNIQUE: Portable AP view of the chest was obtained. FINDINGS: Single AP view of the chest demonstrates pulmonary hypoinflation and bronchovascular crowding. There is limited evaluation of the left lung secondary to patient positioning. Subsegmental atelectasis is present within the lingula and left lung base. Left basilar opacification is nonspecific and could reflect atelectasis given low lung volumes although superimposed infection cannot be excluded in the appropriate clinical setting. Cardiomediastinal contours are stable. No large pleural effusions or pneumothoraces are identified. IMPRESSION: Limited exam secondary to pulmonary hypoinflation and low lung volumes. Subsegmental atelectasis is present within the lingula and left lung base. Left basilar opacification may reflect atelectasis although superimposed infection cannot be excluded in the appropriate clinical setting. DICTATED BY: MARINA GUTIERREZ MD DATE/TIME DICTATED:02/12/171905 OUTREACH REP:NADIA DATE/TIME TRANSCRIBED:02/12/171905 CONFIDENTIAL, DO NOT COPY WITHOUT APPROPRIATE AUTHORIZATION. <Electronically signed in Other Vendor System> SIGNED BY: MARINA GUTIERREZ MD 02/12/171909, PATIENT: SOURAV WARD PRESENT AGE: 86 PATIENT ACCOUNT NO: [id number] : 31 LOCATION: [facility] ORDERING PHYSICIAN: KALEB HUA SERVICE DATE: 02/12/17 EXAM TYPE: CAT - CT HEAD WO IV CONTRAST EXAMINATION: CT HEAD WITHOUT CONTRAST CLINICAL INFORMATION: Questionable unresponsiveness. COMPARISON: CT head without contrast 12/07/2016. TECHNIQUE: Contiguous axial imaging was performed from the skull base to vertex without intravenous administration of contrast. DLP: 743 mGy-cm FINDINGS: Limited exam secondary to patient head positioning and diffuse motion artifact, which degrades image quality. Noncontrast CT imaging of the brain demonstrates age-appropriate generalized parenchymal volume loss with proportional prominence of the sulci and ventricles. There is no large acute intracranial hemorrhage, mass or mass effect or abnormal extra-axial fluid collections. However, smaller intracranial hemorrhages or extra-axial fluid collections cannot be excluded given the aforementioned exam limitations. Limited evaluation for changes of acute ischemia given the aforementioned exam limitations. No acute calvarial abnormality. The mastoid air cells and visualized portions of the paranasal sinuses are well-aerated. IMPRESSION: 1. Limited exam secondary to patient head positioning as well as diffuse motion abnormality which degrades image quality, limiting complete evaluation of the brain. No large acute intraparenchymal hematomas or extra-axial fluid collections. However, smaller intraparenchymal hematomas and extra-axial fluid collections may be missed. 2. Limited evaluation for changes of acute ischemia given the aforementioned exam limitations. Consider repeat head CT head when the patient can better tolerate the exam. 3. Generalized parenchymal volume loss with proportional prominence of the sulci and ventricles. DICTATED BY: MARINA GUTIERREZ MD DATE/TIME DICTATED:02/12/171919 OUTREACH REP:NADIA DATE/ TIME TRANSCRIBED:02/12/171919 CONFIDENTIAL, DO NOT COPY WITHOUT APPROPRIATE AUTHORIZATION. <Electronically signed in Other Vendor System> SIGNED BY: MARINA GUTIERREZ MD 02/12/171927 Initial ED EKG: normal sinus at 70, right bundle branch block, no acute ST segment changes normal intervals Prior EKG: unchanged (11/2016) Rhythm Strip: normal sinus rhythm (BALTAZAR HUA,KALEB) Plan of Care: Orders Procedure Date/time Status Patient Data 02/[address] CHEST WO IV CONTRAST 02/12 2151 Active LACTIC ACID 02/13 2052 Active Add-on Test (ER Only) 02/12 2038 Active URINALYSIS 02/12 1942 Complete EKG 02/12 1757 Active BLOOD CULTURE 02/13 1752 Active URINE DRUG SCREEN FOR ER ONLY 02/13 1752 Complete TROPONIN LEVEL 02/13 1752 Complete PROTHROMBIN TIME 02/13 1752 Complete LACTIC ACID 02/13 1752 Complete ETHANOL 02/13 1752 Complete COMPREHENSIVE METABOLIC PANEL 02/13 1752 Complete CBC WITHOUT DIFFERENTIAL 02/13 1752 Complete B-TYPE NATRIURETIC PEP (BNP) 02/13 1752 Complete Laboratory Tests 02/12/17 2100: pH Pending, pCO2 Pending, pO2 Pending, HCO3 Pending, ABG O2 Sat (Measured) Pending, P-50 (Temp Corrected) Pending, Carboxyhemoglobin Pending, O2 Concentration % Pending, Temperature Pending, O2 Delivery Method Pending, Phlebotomy Draw Site Pending 02/12/171941: Urine Opiates Screen < 100.00, Methadone Screen 57, Barbiturate Screen < 60, Ur Phencyclidine Scrn 6.70, Amphetamines Screen 112, U Benzodiazepines Scrn 528 H, Urine Cocaine Screen < 50, Urine Cannabis Screen < 5.00, Urinalysis LIGHT H, Urine Color YEL, Urine Clarity HAZY H, Urine pH 5.5, Ur Specific [place] 1.025, Urine Protein 30 H, Urine Ketones TRACE H, Urine Nitrite NEG, Urine Bilirubin NEG@ICTO, Urine Urobilinogen 4.0 H, Ur Leukocyte Esterase NEG, Ur Microscopic SEDIMENT EXAMINED, Urine RBC 1-3, Urine WBC 1-3 H, Ur Epithelial Cells FEW, Hyaline Casts MANY H, Urine Hemoglobin NEG, Urine Glucose NEG 02/12/171927: Anion Gap 11, Estimated GFR 16 L, BUN/Creatinine Ratio 20.5, Glucose 72, Lactic Acid 2.2 H, Calcium 8.7, Total Bilirubin 1.9 H, AST 73 H, ALT 41, Alkaline Phosphatase 119, Troponin I 0.06, Tyz-N-Zuzldojhrtv Pept 00459 H, Total Protein 8.5 H, Albumin 3.6, Globulin 4.9 H, Albumin/Globulin Ratio 0.7 L, PT 14.5 H, INR 1.39 H, CBC w Diff NO MAN DIFF REQ, RBC 4.17 L, MCV 90.2, MCH 28.0, RDW 18.5 H, MPV 10.3, Gran % 77.8 H, Lymphocytes % 8.9 L, Monocytes % 9.1, Eosinophils % 3.3, Basophils % 0.9, Absolute Granulocytes 3.4, Absolute Lymphocytes 0.4 L, Absolute Monocytes 0.4, Absolute Eosinophils 0.1, Absolute Basophils 0, PUBS MCHC 31.1 L, Serum Alcohol < 10.0 Microbiology 02/13 2020 BLOOD: Blood Culture - RECD 02/13 1928 BLOOD: Blood Culture - RECD Labs ordered old records patient is lethargic however arousable. Patient is a acutely difficult stick ABG attempted twice without success. Patient's platelet and white blood cell count is at baseline Case was discussed with Dr. Lockhart who evaluated the patient and agrees with plan saturating 93-94% on 3 L currently I discussed with him need for admission given his elevated creatinine off fever or chills highly unlikely to suspect possible pneumonia at this time-given lab values no left shift afebrile we will hold off on antibiotics at this time case d/w dr jarvis will admit TO ICU- she advised to give pt lasxis dose iv here , per dr lockhart however will have house staff eval pt prior to giving lasix given no evidence of fluid overload on xray elevated cr today 02/12/2017 9:49:[address] Jarvis in Department to evaluate patient for possible need for antibiotics, CAT scan of the chest, BiPAP was ordered (KALEB BURGESS) Departure Departure Time of Disposition: 2044 Disposition: STILL A PATIENT Condition: Stable Clinical Impression Primary Impression: RYAN (acute kidney injury) Secondary Impressions: Elevated bilirubin, Hypercapnic respiratory failure, Hyperkalemia, Thrombocytopenia Referrals: VALENTE MERAZ,FRANSISCO Peterson (PCP/Family) Departure Forms: Customer Survey General Discharge Information Admission Note Spoke With: KIRSTIE JARVIS MD Documentation of Exam: Documentation of any treatments & extenuating circumstances including Concerns Regarding Discharge (functional status, medication knowledge or non-compliance, living conditions, etc.) that warrant an admission rather than observation: iv fluids, trend labs, pulmonology consult, premature discharge would be medically harmful (KALEB BURGESS) PA/ORACLE APPLICATION ARCHITECT Co-Sign Statement Statement: ED Attending supervision documentation- [x] I saw and evaluated the patient. I have also reviewed all the pertinent lab results and diagnostic results. I agree with the findings and the plan of care as documented in the PA's/ORACLE APPLICATION ARCHITECT's documentation. [] I have reviewed the ED Record and agree with the PA's/ORACLE APPLICATION ARCHITECT's documentation. [] Additions or exceptions (if any) to the PAs/ORACLE APPLICATION ARCHITECT's note and plan are summarized below: [] (GUS MERAZ,ERNESTINA Abbasi) Procedures Additional Procedures Additional Procedures: arterial blood draw Progress: 2100 ml test was performed showing good collatoral circulation was present, the area was prepped with iodine prep padUsing sterile technique ABG was performed by myself to the left radial artery (KALEB BURGESS) Critical Care Note Critical Care Note Critical Care Time: 30-74 min (KALEB BURGESS)
--- NOTE | 2017-02-12 18:03 | NUR ---
RESP AT BEDSIDE FOR ABG.
--- NOTE | 2017-02-12 18:40 | NUR ---
RAD AT BEDSIDE FOR CHEST XRAY.
--- NOTE | 2017-02-12 18:49 | NUR ---
PT TO CAT SCAN BY STRETCHER.
--- NOTE | 2017-02-12 19:10 | RADIOLOGY REPORT ---
EXAMINATION: XR PORTABLE CHEST CLINICAL INFORMATION: Altered mental status. COMPARISON: Portable chest x-ray 12/05/2016. TECHNIQUE: Portable AP view of the chest was obtained. FINDINGS: Single AP view of the chest demonstrates pulmonary hypoinflation and bronchovascular crowding. There is limited evaluation of the left lung secondary to patient positioning. Subsegmental atelectasis is present within the lingula and left lung base. Left basilar opacification is nonspecific and could reflect atelectasis given low lung volumes although superimposed infection cannot be excluded in the appropriate clinical setting. Cardiomediastinal contours are stable. No large pleural effusions or pneumothoraces are identified. IMPRESSION: Limited exam secondary to pulmonary hypoinflation and low lung volumes. Subsegmental atelectasis is present within the lingula and left lung base. Left basilar opacification may reflect atelectasis although superimposed infection cannot be excluded in the appropriate clinical setting.
--- NOTE | 2017-02-12 19:28 | CT SCAN REPORT ---
EXAMINATION: CT HEAD WITHOUT CONTRAST CLINICAL INFORMATION: Questionable unresponsiveness. COMPARISON: CT head without contrast 12/07/2016. TECHNIQUE: Contiguous axial imaging was performed from the skull base to vertex without intravenous administration of contrast. DLP: 743 mGy-cm FINDINGS: Limited exam secondary to patient head positioning and diffuse motion artifact, which degrades image quality. Noncontrast CT imaging of the brain demonstrates age-appropriate generalized parenchymal volume loss with proportional prominence of the sulci and ventricles. There is no large acute intracranial hemorrhage, mass or mass effect or abnormal extra-axial fluid collections. However, smaller intracranial hemorrhages or extra-axial fluid collections cannot be excluded given the aforementioned exam limitations. Limited evaluation for changes of acute ischemia given the aforementioned exam limitations. No acute calvarial abnormality. The mastoid air cells and visualized portions of the paranasal sinuses are well-aerated. IMPRESSION: 1. Limited exam secondary to patient head positioning as well as diffuse motion abnormality which degrades image quality, limiting complete evaluation of the brain. No large acute intraparenchymal hematomas or extra-axial fluid collections. However, smaller intraparenchymal hematomas and extra-axial fluid collections may be missed. 2. Limited evaluation for changes of acute ischemia given the aforementioned exam limitations. Consider repeat head CT head when the patient can better tolerate the exam. 3. Generalized parenchymal volume loss with proportional prominence of the sulci and ventricles.
--- NOTE | 2017-02-12 19:32 | NUR ---
BLOOD DRAWN AND SENT TO LAB-2SST,LAV,BLUE,KEANE, 1ST BC.
[2017-02-12 19:45] LABS: ABSOLUTE BASOPHIL COUNT 0 /CUMM (0.0-0.2); ABSOLUTE EOSINOPHIL COUNT 0.1 /CUMM (0.0-0.7); ABSOLUTE GRANULOCYTE CT 3.4 /CUMM (1.4-6.5); ABSOLUTE LYMPH COUNT 0.4 /CUMM (1.2-3.4); ABSOLUTE MONOCYTE COUNT 0.4 /CUMM (0.10-0.60); BASOPHIL % 0.9 % (0.0-2.0); EOSINOPHIL % 3.3 % (0-5); GRANULOCYTE % 77.8 % (42.2-75.2); HEMATOCRIT 37.6 % (42-52); MEAN CORPUSCULAR HGB CONC 31.1 G/DL (33.0-37.0); MEAN CORPUSCULAR VOLUME 90.2 FL (80.0-94.0); MEAN PLATELET VOLUME 10.3 FL (7.4-10.4); RBC DISTRIBUTION WIDTH 18.5 % (11.5-14.5); RED BLOOD CELL CT 4.17 /CUMM (4.70-6.10); WHITE BLOOD CELL COUNT 4.4 /CUMM (4.8-10.8)
--- NOTE | 2017-02-12 19:46 | NUR ---
PT STRAIGHT CATH, STERILE TECHNIQUE MAINTAINED, 150ML OF RAYSHAWN URINE OBTAINED AND SENT TO LAB.
[2017-02-12 19:48] LABS: PLATELET COUNT 88 /CUMM (130-400)
[2017-02-12 19:52] LABS: PT 14.5 SEC (9.4-12.5)
--- NOTE | 2017-02-12 20:30 | NUR ---
MD GUS AT BEDSIDE TO DISCUSS POC.
--- NOTE | 2017-02-12 20:42 | NUR ---
IV EST, NS INFUSING PER EMAR.
[2017-02-12] MEDS ORDERED: MULTAQ400 M1 PO ×2 (21:10→23:03)
[2017-02-12] MEDS ORDERED: LASIX20 M1 PO ×3 (21:11→23:03)
[2017-02-12] MEDS ORDERED: BISACODYL10 M1 RC (21:14)
[2017-02-12] MEDS ORDERED: ACEPHEN650 M1 PR (21:14)
[2017-02-12] MEDS ORDERED: FLEET ENEMA133 ML RC (21:15)
[2017-02-12] MEDS ORDERED: Q-PAP325 M1 PO (21:16)
[2017-02-12] MEDS ORDERED: TRAZODONE HCL50 M1 PO (21:16)
[2017-02-12] MEDS ORDERED: MILK OF MA400 MG/52 PO (21:16)
[2017-02-12] MEDS ORDERED: HYDROXYZINE HCL25 M2 PO (21:19)
[2017-02-12] MEDS ORDERED: DEEP SEA44 ML NASB (21:20)
[2017-02-12] MEDS ORDERED: ALBUTEROL2.5 MG/3 M INH/SOL (21:20)
[2017-02-12] MEDS ORDERED: Q-TUSSIN100 MG/51 PO (21:21)
[2017-02-12] MEDS ORDERED: ALPRAZOLAM0.25 M1 PO (21:21)
--- NOTE | 2017-02-12 22:06 | History & Physical ---
General Information and HPI Allergies/Medications Allergies: Coded Allergies: lisinopril (Severe, MOUTH SWELLING 02/12/16) Penicillins (Intermediate, HIVES 02/12/16) lorazepam (HALLUCINATION 02/12/16) Home Med list Acetaminophen (Acephen) 650 MG SUPP.RECT 1 SUPP WI Q4H PRN PAIN/TEMP>/101 ( Reported) Acetaminophen (Q-Pap) 325 MG TABLET 2 TAB PO Q4H PRN PAIN/TEMP>/101 (Reported ) Albuterol Sulfate 2.5 MG/3 ML (0.083 %) VIAL.NEB 1 Vial INH/GABBY Q6H PRN SOB/ WHEEZE (Reported) Alprazolam 0.25 MG TABLET 1 TAB PO Q6H PRN ANXIETY (Reported) Aspirin (Aspirin*) 81 MG TAB.CHEW 81 MG PO DAILY [facility] Bisacodyl 10 MG SUPP.RECT 1 SUP RC PRN CONSTIPATION (Reported) Budesonide/Formoterol Fumarate (Symbicort 160-4.5 Mcg Inhaler) 160 MCG-4.5 MCG/ ACTUATION HFA.AER.AD 2 PUFF INH Q12H RESP (Reported) Cyanocobalamin (Vitamin B-12) 1,000 MCG TABLET 1 TAB PO DAILY SUPPLEMENT ( Reported) Docusate Sodium 100 MG CAPSULE 1 CAP PO DAILY CONSTIPATION (Reported) Dronedarone HCl (Multaq) 400 MG TABLET 1 MG PO BID heart [facility] Ferrous Sulfate 325 MG (65 MG IRON) TABLET 325 MG PO DAILY SUPPLEMENT ( Reported) Furosemide (Lasix) 20 MG TABLET 1 TAB PO DAILY HTN (Reported) Guaifenesin (Q-Tussin) 100 MG/5 ML LIQUID 10 ML PO Q6H PRN COUGH (Reported) Hydroxyzine HCl 25 MG TABLET 1 TAB PO DAILY PRN ITCH (Reported) Magnesium Hydroxide (Milk Of Magnesia) 400 MG/5 ML ORAL.SUSP 30 ML PO DAILY PRN CONSTIPATION (Reported) Melatonin 3 MG TABLET 3 MG PO QHS SLEEP (Reported) Metoprolol Tartrate 25 MG TABLET 1 TAB PO Q12H HYPERTENSION (Reported) Mirtazapine (Remeron) 15 MG TABLET 7.5 MG PO AT BEDTIME SLEEP (Reported) Na Phos,M-B/Na Phos,Di-Ba (Fleet Enema) 19 GRAM-7 GRAM/118 ML ENEMA 1 E RC DAILY PRN CONSTIPATION (Reported) Pantoprazole Sodium (Protonix) 20 MG TABLET.DR 40 MG PO DAILY GI (Reported) Sodium Chloride (Deep Sea) 0.65 % SPRAY 1 SPRAY NASB Q6H PRN CONGESTION ( Reported) Tiotropium [place] (Spiriva) 18 MCG CAP.W.DEV 18 MCG INH DAILY RESPIRATORY ( Reported) Trazodone HCl 50 MG TABLET 12.5 MG PO QHS SLEEP (Reported) Past History Travel History Traveled to [place] past 21 day No Medical History Neurological: SHINGLES EENT: NONE Cardiovascular: AFIB, hypertension, hyperlipidemia, HFPeF Respiratory: COPD, MRSA PNA (-MRSA) Gastrointestinal: peptic ulcer disease Hepatic: hepatitis C Renal: NONE Musculoskeletal: NONE Psychiatric: alcohol dependence, IV drug abuse, 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 no Power of Repeater Chief/HCP? no Functional Ability ADLs Needs Assist: dressing, eating, toileting, bathing. Ambulation: wheelchair IADLs Independent: telephone. Needs Assist: shopping, housework, finances, food prep, transportation. Unknown: medication admin. Core Measures/Miscellaneous Cerebrovascular Accident CVA/TIA Diagnosis: No Severe Sepsis Severe Sepsis Present: No Septic Shock Septic Shock Present: No
--- NOTE | 2017-02-12 22:41 | NUR ---
HOUSE STAFF AT BEDSIDE FOR PT EVAL.
[2017-02-12] MEDS ORDERED: LASIX40 M1 PO ×2 (22:59→23:03)
--- NOTE | 2017-02-12 23:16 | NUR ---
PT MEDICATED WITH SOLU MEDROL PER EMAR. AVELOX INFUSING PER EMAR.
--- NOTE | 2017-02-12 23:24 | NUR ---
Emergency Dept [facility] Admit Note: To be admitted to [facility] by DR. JARVIS with ACUTE KIDNEY INJURY, RESPIRATORY FAILURE as the diagnosis, to [id number]. Nursing Tester Electronic Scale and admitting notified 02/12/17 at 2134
--- NOTE | 2017-02-12 23:38 | NUR ---
PT PULLED OFF BI-PAP MASK,SWINGING AT NURSE WHEN ATTEMPTING TO PUT BI-PAP OR VENTI MASK ON PT PT PLACED ON NC AT 4.5L/MIN
--- NOTE | 2017-02-12 23:50 | History & Physical ---
MARIMAR MERAZ,SUNSHINE 02/12/17 9388: General Information and HPI MD Statement: I have seen and personally examined SOURAV WARD and documented this H&P. The patient is a 86 year old M who presented with a patient stated chief complaint of [Altered mental status]. Source of Information: old records, EMS, [facility] Exam Limitations: no limitations History of Present Illness: patient is a 86 YO M with PMH significant for Paroxysmal A.Fib, Hypertension, Diastolic heart failure, COPD on 3L oxygen, Myelodysplastic syndrome, Hep C, Cor pulmonale came BIBA to the ER today after found to be Altered with saturations uninterpretable. He was not eating well for the past 24hrs with sudden change in mental status to mildly arousable. At his baseline he is alert, verbal, on 3L of oxygen and able to walk with assistance of 1 person. Patient was made comfort on jan 05 as per the family wishes. Surprisingly he was continued on his medications. There is a respiratory outbreak for influenza type B in [facility] - so far 2 members effected and they presented similarly. In the ER patient is arousable, pulling his BiPAP away, not communicating. Most of the information is obtained by calling [facility], [facility]. Allergies/Medications Allergies: Coded Allergies: lisinopril (Severe, MOUTH SWELLING 02/12/16) Penicillins (Intermediate, HIVES 02/12/16) lorazepam (HALLUCINATION 02/12/16) Home Med list Acetaminophen (Acephen) 650 MG SUPP.RECT [address] Q4H PRN PAIN/TEMP>/101 ( Reported) Acetaminophen (Q-Pap) 325 MG TABLET 2 TAB PO Q4H PRN PAIN/TEMP>/101 (Reported ) Albuterol Sulfate 2.5 MG/3 ML (0.083 %) VIAL.NEB 1 Vial INH/GABBY Q6H PRN SOB/ WHEEZE (Reported) Alprazolam 0.25 MG TABLET 1 TAB PO Q6H PRN ANXIETY (Reported) Aspirin (Aspirin*) 81 MG TAB.CHEW 81 MG PO DAILY heart health Bisacodyl 10 MG SUPP.RECT 1 SUP RC PRN CONSTIPATION (Reported) Budesonide/Formoterol Fumarate (Symbicort 160-4.5 Mcg Inhaler) 160 MCG-4.5 MCG/ ACTUATION HFA.AER.AD 2 PUFF INH Q12H RESP (Reported) Cyanocobalamin (Vitamin B-12) 1,000 MCG TABLET 1 TAB PO DAILY SUPPLEMENT ( Reported) Docusate Sodium 100 MG CAPSULE 1 CAP PO DAILY CONSTIPATION (Reported) Dronedarone HCl (Multaq) 400 MG TABLET 1 TAB PO BID HEART HEALTH Ferrous Sulfate 325 MG (65 MG IRON) TABLET 325 MG PO DAILY SUPPLEMENT ( Reported) Furosemide (Lasix) 20 MG TABLET 1 TAB PO BID CHF (Reported) Furosemide (Lasix) 40 MG TABLET 1 TAB PO BID CHF (Reported) Guaifenesin (Q-Tussin) 100 MG/5 ML LIQUID 10 ML PO Q6H PRN COUGH (Reported) Hydroxyzine HCl 25 MG TABLET 1 TAB PO DAILY PRN ITCH (Reported) Magnesium Hydroxide (Milk Of Magnesia) 400 MG/5 ML ORAL.SUSP 30 ML PO DAILY PRN CONSTIPATION (Reported) Melatonin 3 MG TABLET 3 MG PO QHS SLEEP (Reported) Metoprolol Tartrate 25 MG TABLET 1 TAB PO Q12H HYPERTENSION (Reported) Mirtazapine (Remeron) 15 MG TABLET 7.5 MG PO AT BEDTIME SLEEP (Reported) Na Phos,M-B/Na Phos,Di-Ba (Fleet Enema) 19 GRAM-7 GRAM/118 ML ENEMA 1 E RC DAILY PRN CONSTIPATION (Reported) Pantoprazole Sodium (Protonix) 20 MG TABLET.DR 40 MG PO DAILY GI (Reported) Sodium Chloride (Deep Sea) 0.65 % SPRAY 1 SPRAY NASB Q6H PRN CONGESTION ( Reported) Tiotropium [place] (Spiriva) 18 MCG CAP.W.DEV 18 MCG INH DAILY RESPIRATORY ( Reported) Trazodone HCl 50 MG TABLET 12.5 MG PO QHS SLEEP (Reported) Compliance With Home Meds: UNKNOWN Past History Travel History Traveled to [place] past 21 day No Medical History Neurological: SHINGLES EENT: NONE Cardiovascular: AFIB, hypertension, hyperlipidemia, HFPeF Respiratory: COPD, MRSA PNA (-MRSA) Gastrointestinal: peptic ulcer disease Hepatic: hepatitis C Renal: NONE Musculoskeletal: NONE Psychiatric: alcohol dependence, IV drug abuse, 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 Shelter Facility Who Do You Live With? self Services at Home: Oxygen Primary Language: Nepali Smoking Status: Former Smoker Living Will? 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 no Functional Ability ADLs Needs Assist: dressing, eating, toileting, bathing. Ambulation: wheelchair IADLs Independent: telephone. Needs Assist: shopping, housework, finances, food prep, transportation. Unknown: medication admin. Review of Systems Review of Systems Constitutional: Reports: see HPI. Comments ROS cannot be appreciated as per the patient condition. Exam & Diagnostic Data Last 24 Hrs of Vital Signs/I&O Vital Signs Date Time Temp Pulse Resp B/P Pulse O2 O2 Flow FiO2 Ox Delivery Rate 02/12 2306 68 94 02/12 2256 96.1 78 16 115/61 98 BIPAP 02/12 2107 96.0 76 16 145/61 93 Nasal 4.5L Cannula 02/12 1914 96.2 98 16 131/76 94 Nasal 4.0L Cannula 02/12 1748 96 Nasal 4.0L Cannula 02/12 1739 96.0 103 18 117/56 96 Nasal 4.0L Cannula Physical Exam General Appearance Alert Skin bruising present HEENT Atraumatic, PERRLA, EOMI Neck Supple Cardiovascular Normal S1, Normal S2 Lungs rhochorous bilaterally Abdomen Normal Bowel Sounds Extremities No Clubbing, No Cyanosis, 4+ pitting edema present, cold extremities Last 24 Hrs of Labs/Rocco: Laboratory Tests 02/12/17 2100: pH 7.27 *L, pCO2 68 *H, pO2 80, HCO3 30 H, ABG O2 Sat (Measured) 94.0 L, O2 Concentration % 4.5L, Temperature 96.0 L, O2 Delivery Method NC, Phlebotomy Draw Site LEFT RADIAL 02/12/171941: Urine Opiates Screen < 100.00, Methadone Screen 57, Barbiturate Screen < 60, Ur Phencyclidine Scrn 6.70, Amphetamines Screen 112, U Benzodiazepines Scrn 528 H, Urine Cocaine Screen < 50, Urine Cannabis Screen < 5.00, Urinalysis LIGHT H, Urine Color YEL, Urine Clarity HAZY H, Urine pH 5.5, Ur Specific Epworth 1.025, Urine Protein 30 H, Urine Ketones TRACE H, Urine Nitrite NEG, Urine Bilirubin NEG@ICTO, Urine Urobilinogen 4.0 H, Ur Leukocyte Esterase NEG, Ur Microscopic SEDIMENT EXAMINED, Urine RBC 1-3, Urine WBC 1-3 H, Ur Epithelial Cells FEW, Hyaline Casts MANY H, Urine Hemoglobin NEG, Urine Glucose NEG 02/12/171927: Anion Gap 11, Estimated GFR 16 L, BUN/Creatinine Ratio 20.5, Glucose 72, Lactic Acid 2.2 H, Calcium 8.7, Total Bilirubin 1.9 H, AST 73 H, ALT 41, Alkaline Phosphatase 119, Troponin I 0.06, Bcs-D-Ldncetsqgzd Pept 99906 H, Total Protein 8.5 H, Albumin 3.6, Globulin 4.9 H, Albumin/Globulin Ratio 0.7 L, PT 14.5 H, INR 1.39 H, CBC w Diff NO MAN DIFF REQ, RBC 4.17 L, MCV 90.2, MCH 28.0, RDW 18.5 H, MPV 10.3, Gran % 77.8 H, Lymphocytes % 8.9 L, Monocytes % 9.1, Eosinophils % 3.3, Basophils % 0.9, Absolute Granulocytes 3.4, Absolute Lymphocytes 0.4 L, Absolute Monocytes 0.4, Absolute Eosinophils 0.1, Absolute Basophils 0, PUBS MCHC 31.1 L, Serum Alcohol < 10.0 Microbiology 02/12 2355 NASOPHARYN: Influenza Virus A & B Rapid Smear - ORD 02/13 2020 BLOOD: Blood Culture - RECD 02/13 1928 BLOOD: Blood Culture - RECD Assessment/Plan Assessment: patient is a 86 YO M with PMH significant for Paroxysmal A.Fib, Hypertension, Diastolic heart failure, COPD on 3L oxygen, Myelodysplastic syndrome, Hep C, Cor pulmonale came BIBA to the ER today after found to be Altered with saturations uninterpretable. ER Course VS Afebrile with HR 103, BP 114/60mmHg, on BiPAP initially (later started on 6L NC) Significant labs WBC 4.4, hemoglobin 11.7, platelet count 88(chronic), potassium 5.3, BUN 76, creatinine 3.7, lactic acid 2.2, total bili 1.9, AST 73, proBNP 06891, INR 1.39 ABGs showed pH 7.27, PCO2 68, bicarbonate 30. Chest x-ray shows left basilar opacification likely atelectasis versus infection. Head CT without IV contrast showed generalized parenchymal volume loss with prominence of sulci and ventricles. Plan Admitted to genreal medicine as a comfort care patient Acute on chronic hypercarbic respiratory failure in a end stage COPD patient * Pneumonia vs influenza * Started on IV Moxifloxacin daily (multi drug resistant and MRSA in the past) * Received a single dose of 125mg Methylprednisone along with 1L NS in ER. * TRC/Nebs His other chronic medical conditions are treated by his usual home medications for now. Paroxysmal A.Fib - Dronedarone 400mg BID Diastolic heart failure - Aspirin 81mg, Metoprolol tartarate 25mg BID Anxiety/Depression/Insomnia - Xanax 0.25mg Q6PRN, Trazodone, Mirtazepine, Melatonin Supplementals - B12, Ferrous sulphate. Acid reflux - omez 40mg daily DVT prophylaxis * ALPS - thrombocytopenia Code Status * Comfort measures. As Ranked By This Provider Problem List: 1. ?AFIB/AFLUTTER 2. COPD 3. Diastolic dysfunction 4. Heart failure 5. Thrombocytopenia 6. Hypercapnic respiratory failure 7. Hyperkalemia 8. Hypertension 9. Altered mental status, unspecified 10. Myelodysplasia (myelodysplastic syndrome) Core Measures/Miscellaneous Acute Coronary Syndrome ACS Diagnosis: No Cerebrovascular Accident CVA/TIA Diagnosis: No Congestive Heart Failure CHF Diagnosis: No Venous Thromboembolism VTE Risk Factors: Immobility, paresis No [facility] prophylaxis d/t: No contraindications No VTE Pharm Prophylaxis d/t: No contraindications VTE Diagnosis: No VTE Type: NONE VTE Confirmed by (Test): NONE Severe Sepsis Severe Sepsis Present: No Septic Shock Septic Shock Present: No Miscellaneous Documentation Attending Case Discussed With: KIRSTIE JARVIS MD Primary Care Physician: FRANSISCO VICTOR MD Patient sees these Specialists unknown Level of Patient Care: General Medicine JAYCOB OSEGUERA 02/12/17 0000: Resident Review Statement Resident Statement: discussed with communications intern Other Findings: He is 86-year-old man with past medical history of severe COPD on 2 L of oxygen at baseline, history of alcohol abuse, previous history of biventricular heart failure, very severe pulmonary hypertension with cor pulmonale, previous myelodysplastic syndrome, chronic thrombocytopenia, chronic kidney disease, history of paroxysmal A. fib, hypertension, hep C and dementia was sent in from [facility] after he was found unresponsive and cyanotic. On admission patient was lethargic, confused, oxygen saturation 96% on 4 L of oxygen via nasal cannula. According to staff in [facility] he was at his baseline until yesterday but within 24 hours his health condition totally changed. In December 2016 he was made comfort care after family decision. All his meds were continued as it is. Currently he is on BiPAP and not able to provide a properly. Physical exam includes decreased air entry on lung auscultation bilaterally, chronic venous changes bilateral lower extremities with 1+ pitting edema more on left leg. Pertinent labs are WBC 4.4, hemoglobin 11.7, platelet count 88, potassium 5.3, BUN 76, creatinine 3.7, lactic acid 2.2, total bili 1.9, AST 73, proBNP 97706, INR 1.39, ABGs showed pH 7.27, PCO2 68, bicarbonate 30. Chest x-ray was done in ER that showed left basilar opacification likely atelectasis versus infection. Head CT without IV contrast showed generalized parenchymal volume loss with prominence of sulci and ventricles. They could not exclude any small intraparenchymal hematomas and extra-axial fluid collections. In ER he was given 1 L normal saline bolus, Solu-Medrol, moxifloxacin. Assessment and plan Problem list 1. Acute and chronic hypercarbic respiratory failure could be secondary to ? Community-acquired pneumonia versus end-stage COPD vs influenza vs mild CHF exacerbation 2. Pancytopenia most likely secondary to ? MDS 3. Acute on chronic kidney disease 4. Lactic acidosis 5. Elevated LFTs We will admit patient to general medicine floor. Patient has been put on BiPAP already. We will continue IV antibiotics and steroids. As patient's CODE STATUS is comfort measures so we will want to any aggressive intervention. CODE STATUS was also discussed with the family and they conformed as comfort care. Over the night if patient deteriorates then we will start him on comfort care medications. Right now we will continue all his meds. Avoid nephrotoxins. Repeat kidney functions in a.m. We'll avoid giving him any more fluids as he looks slightly fluid overloaded. Family meeting regarding goals of care. Pain management pathway. Regular diet. Alps for DVT prophylaxis because of anemia and thrombocytopenia. Patient is on comfort measures. Prognosis guarded. MATHEUS MERAZ, [facility] 02/13/17 0508: Attending MD Review Statement Attending Statement Attending MD Statement: examined this patient, discuss w/resident/PA/LYE BATH OPERATOR, agreed w/resident/PA/LYE BATH OPERATOR, discussed with family Attending Assessment/Plan: 86 yo M with h/o dementia, Hep C, HTN, end-stage COPD on 3L, pulmonary HTN, paroxysmal Afib, MDS, previous biventricular heart failure now with normal EF ( EF > 65%), CKD stage 3B, last admitted for pneumonia (Nov 2016) is sent in from [facility] for respiratory distress, weakness and unresponsive episode with cyanotic lips/ nail bed as told to me by the RN at the facility. There has been an Influenza outbreak the facility recently. RN also reported that patient's code staus was changed to 'Comfort measures only" around mid December after discussion with patient's son/POA Zaki Wadr. He was receiving all his regular home meds. Patient did not provide any history, he was awake, confused and wanted to be left alone. Chest with bilateral scattered rhonchi, basilar crackles+. Bilateral LE edema with chronic venous stasis changes. On reviewing his blood work, ABG showed acute on chronic respiratory acidosis, he was placed on Bipap. He has pancytopenia 2/2 MDS, plt 88, K 5.3, bicarb 32, BUN 76, creat 3.7 (baseline 1.4-1.8), lactic acid 2.2, T. Bili 1.9, AST 73, trop 0.06, proBNP 95631, alcohol <10. UA not significant for UTI, Utox positive for benzos. CXR: hypoinflation, atelectasis, left basilar opacification ?infection. Head CT neg. EKG: SR, RBBB. Flu swab neg. Previous sputum has grown moraxella catarrhalis, pantoea agglomerans, serratia marcescens, streptococcus pneumoniae. I personally spoke with patient's son Zaki Ybarra (POA) who confirmed that the patient's code status is comfort measures. He agreed for treatment with IV antibiotics and steroids, Bipap therapy but if patient does not tolerate Bipap then we will keep him comfortable with O2 via NC and morphine IV for respiratory distress. I also discussed above with Dr. Bajwa, who knows the patient well from prior admissions. We will continue nebs, IV moxifloxacin and steroids for acute on chronic hypoxic and hypercarbic respiratory failure 2/2 severe COPD with possible pneumonia. Pulm consult. Lactic acidosis resolved with fluids given in ER. Holding off further IV fluids. He also has acute on CKD. He appears in mild decompensated CHF, however due to renal failure unable to give lasix. DVT ppx Alps. Comfort measures. Overnight, patient ripped off the Bipap mask and when placed on VM, he removed that too. I have initiated IV morphine for respiratory distress.
--- NOTE | 2017-02-13 00:04 | NUR ---
REPORT GIVEN TO HANNAH LORENZO
[2017-02-13 00:59] VITALS: BP 114/60
--- NOTE | 2017-02-13 02:53 | NUR ---
LATE ENTRY NURSING NOTE: REPORT RECEIVED FROM BLAKE LORENZO, PT ARRIVED TO FLOOR AT 0015 VIA STRETCHER. PT ALERT TO SELF, ON 6L NC O2 SAT 85%, BILATERAL LOWER EXTREMITIES DICOLORED ECCHYMOTIC COLD TO TOUCH, NO PEDAL PULSES FELT. UPPER BILATERAL EXTERMITIES ECCHYMOTIC WITH SCABS ALL OVER. RT FOOT .8X.6CM ROUND OPEN AREA WITH YELLOW EXUDATE AND HARD TO TOUCH, SAME LOOKING AREA TO RT GROSSMAN MEASURING 1 X.5CM. COCCYX/GLUTEAL FOLD OPEN AREA RED 1CM X.1CM. BARRIER CREAM APPLIED. O2 SAT RECHECKED 74% ON 6L NC, FLETCHER OLIVA MD AND MADE AWARE OF O2 SAT, PER MD TO HAVE RESPIRATORY COME TO EVAL PT AND NEED FOR BIPAP. MD ALSO AWARE OF IV IN LAC IS PULLED OUT OF PT AND UNABLE BY THIS RN, BLANKA LORENZO AND ACTIMIZE ARCHITECT TIMOTHY. PT ARRIVED TO FLOOR WITH IV ANITBIOTICS ON HOLD DUE TO LAC IV PULLED OUT. MD IS AWARE PT DID NOT RECEIVE ANTIBIOTIC DOSE AND PER MD "TRY AGAIN LATER AFTER SOME TIME TO PLACE ANOTHER IV". MD ALSO MADE AWARE OF LOWER EXTREMITIES AND ABSENT PEDAL PULSES. PT PUT ON VENTI MASK 55% BY RT, PT CONTINUES TO PULL OFF MASK, BILATERAL SOFT WRIST RESTRAINTS ORDERED. PT CAN BE COMBATIVE WHILE ADMINISTERING CARE, AND ATTEMPTED TO GIVE PO XANAX FOR ANXIETY, PT YELLING "HELP ME", PT REFUSED TO TAKE PO XANAX AND SPIT IT BACK OUT. WILL MONITOR.
--- NOTE | 2017-02-13 04:07 | NUR ---
AT 0345 PT CONTINUES TO YELL OUT "HELP ME" AND MAKING ATTEMPTS TO GET OUT OF BED WHILE IN BILATERAL WRIST RESTRAINTS. FLETCHER OLIVA MD AND ONE TIME ORDER OF ZYPREXA IM PLACED. MED GIVEN, WILL MONITOR
--- NOTE | 2017-02-13 05:10 | Admission Certification ---
Admission Certification Certification Statement - As attending physician, I certify that at the time of - admission, based on clinical presentation, severity of - symptoms, need for further diagnostic testing and - therapeutic interventions, and risk of adverse outcomes - without in-hospital treatment, in my clinical assessment, - this patient requires an acute hospital stay for a minimum - of two nights or longer. I have also considered psychsocial - factors such as support system, advanced age, financial - issues, cognitive issues, and failed out-patient treatments, - past re-admission history, safety of patient, and lack of - compliance as applicable. Specific rationale supporting this admission is: Acute on chronic respiratory failure, severe COPD. Acute on CKD.
[2017-02-13 06:57] VITALS: BP 120/62
--- NOTE | 2017-02-13 08:00 | NUR ---
PT ASSESSED BY THIS RN AT BEGINNING OF SHIFT FOR RESTRAINT NECESSITY. PT'S CURRENT CODE STATUS IS COMFORT MEASURES ONLY. OVERNIGHT STAFF UNABLE TO OBTAIN ANY IV ACCESS FOR ANTIBIOTIC OR STEROID ADMINSTRATION. UPON ASSESSMENT, PT APPEARS AGITATED AND SHORT OF BREATH. BILATERAL WRIST RESTRAINTS IN PLACE BECAUSE OF OXYGEN REMOVAL. PT CURRENTLY ONLY HAS IV MORPHINE ORDER IN PLACE BUT NONE WAS ADMINISTERED PT HAS NO ACCESS. DISCUSSION HAD WITH DR. HAILE ABOUT MEDICATIONS. AGREED TO MAKE ALL MEDICATION ORDERS SUBCUTANEOUS. SUBCUTANEOUS MORPHINE ADMINISTERED AND PT QUICKLY SETTLED. DOSE OF SQ ATIVAN ALSO GIVEN. WRIST RESTRAINTS REMOVED AFTER PT SETTLED WITH MEDICATIONS. ALL RESTRAINTS OFF AT 8:30AM. WILL MONITOR.
--- NOTE | 2017-02-13 08:34 | PN- Housestaff ---
Subjective Follow-up For: Acute on chronic hypercarbic respiratory failure Acute kidney injury on chronic kidney disease Urinary Tract infection Sepsis Subjective: Patient seen and examined. He is seen lying flat in bed appearing confused pulling at his bipap mask. He appears to be in moderate distress and ill. Patient is confused and unable to answer questions. Review of systems is unobtainable. No overnight events reported. Review of Systems Constitutional: Reports: see HPI. Objective Last 24 Hrs of Vital Signs/I&O Vital Signs Date Time Temp Pulse Resp B/P Pulse O2 O2 Flow FiO2 Ox Delivery Rate 02/13 0800 90 Venti Mask 55% 02/13 0657 98.9 86 24 120/62 95 Venti Mask 55% 02/13 0059 99.1 80 30 114/60 85 Nasal 6.0L Cannula 02/13 0015 90 Venti Mask 55% 02/12 2306 68 94 02/12 2256 96.1 78 16 115/61 98 BIPAP 02/12 2107 96.0 76 16 145/61 93 Nasal 4.5L Cannula 02/12 1914 96.2 98 16 131/76 94 Nasal 4.0L Cannula 02/12 1748 96 Nasal 4.0L Cannula 02/12 1739 96.0 103 18 117/56 96 Nasal 4.0L Cannula Intake & Output 02/13 1600 02/13 0800 02/13 0000 Intake Total 0 1000 Output Total 100 Balance -100 1000 Intake, IV 1000 Intake, Oral 0 Number 0 Bowel Movements Output, Urine 100 Patient 68.039 kg Weight Physical Exam General Appearance: Moderate Distress Other Physical Findings: General - ill appearing elderly man in moderate distress HEENT - NCAT, EOMI, PERRL, anicteric sclera CVS - S1, S2 w/o m/g/r Resp - bilateral rhonchi GI - Soft, nontender, nondistended, bowel sounds intact Neuro - Awake and Alert, CN II - XII grossly intact Ext - normal pulses, 2+ bilateral lower extremity edema Current Medications: Current Medications Sig/Linda Start time Last Medication Dose Route Stop Time Status Admin Acetaminophen 650 MG Q6P PRN 02/13 0915 DCD FL Acetaminophen 650 MG Q6-PRN PRN 02/12 2315 DC PO Albuterol Sulfate 3 ML Q6P PRN 02/12 2345 DC INH Alprazolam 0.25 MG Q6P PRN 02/12 2345 DCD PO 02/19 2344 Aspirin 81 MG DAILY 02/13 1000 CAN PO Budesonide/ 2 PUF Q12 02/13 1000 CAN Formoterol Fumarate INH Cyanocobalamin 1,000 MCG DAILY 02/13 1000 CAN PO Dronedarone 400 MG BID 02/13 1000 CAN PO Ferrous Sulfate 325 MG DAILY 02/13 1000 CAN PO Ibuprofen 600 MG Q6 02/12 2359 CAN PO Lorazepam 0.5 MG Q3P PRN 02/13 0815 DCD SC Lorazepam 1 MG ONCE ONE 02/13 0800 DC SC 02/13 0801 Lorazepam 0.5 MG ONCE ONE 02/13 0800 DC 02/13 SC 02/13 0801 0755 Melatonin 3 MG AT BEDTIME 02/12 2345 DC PO Methylprednisolone 40 MG Q12 02/13 1000 DC IV Methylprednisolone 0 .STK-MED ONE 02/12 2306 DC .ROUTE Methylprednisolone 125 MG ONCE ONE 02/12 2215 DC 02/12 IV 02/12 221 2300 Metoprolol Tartrate 25 MG Q12 02/13 1000 CAN PO Mirtazapine 7.5 MG AT BEDTIME 02/13 2200 CAN PO Morphine Sulfate 2 MG Q3P PRN 02/13 0815 DCD SC Morphine Sulfate 1 MG Q4P PRN 02/13 0445 DCD 02/13 IV 0743 Moxifloxacin HCl 400 MG 2200 02/13 2200 CAN N/A 1 UNIT IV Moxifloxacin HCl 400 MG DAILY 02/13 1000 CAN IV Moxifloxacin HCl 400 MG ONCE ONE 02/12 2215 DC 02/12 IV 02/12 2216 2300 Olanzapine 2.5 MG ONCE ONE 02/13 0345 DC 02/13 IM 02/13 0346 0359 Omeprazole 40 MG DAILY AC 02/13 0700 DC PO Scopolamine HBr 1 PAT Q72H 02/13 0815 DCD 02/13 TOP 1051 Sodium Chloride 1,000 ML BOLUS ONE 02/12 2000 DC 02/12 IV 02/12 Tiotropium Maybell 1 PUF DAILY 02/13 1000 CAN INH Trazodone HCl 12.5 MG AT BEDTIME 02/13 2200 CAN PO Last 24 Hrs of Lab/Rocco Results Last 24 Hrs of Labs/Mics: Laboratory Tests 02/13/17 1135: Lactic Acid Cancelled 02/13/17 1005: Albumin Cancelled, CBC w Diff Cancelled, WBC Cancelled, RBC Cancelled, Hgb Cancelled, Hct Cancelled, MCV Cancelled, MCH Cancelled, RDW Cancelled, Plt Count Cancelled, MPV Cancelled, PUBS MCHC Cancelled 02/13/17 0835: Lactic Acid Cancelled 02/13/17 0530: Lactic Acid 2.2 H 02/13/17 0530: Anion Gap 14, Estimated GFR 15 L, BUN/Creatinine Ratio 20.5 02/13/17 0245: Lactic Acid 1.9 02/12/17 2100: pH 7.27 *L, pCO2 68 *H, pO2 80, HCO3 30 H, ABG O2 Sat (Measured) 94.0 L, O2 Concentration % 4.5L, Temperature 96.0 L, O2 Delivery Method NC, Phlebotomy Draw Site LEFT RADIAL 02/12/172051: Lactic Acid Cancelled 02/12/171941: Urine Opiates Screen < 100.00, Methadone Screen 57, Barbiturate Screen < 60, Ur Phencyclidine Scrn 6.70, Amphetamines Screen 112, U Benzodiazepines Scrn 528 H, Urine Cocaine Screen < 50, Urine Cannabis Screen < 5.00, Urinalysis LIGHT H, Urine Color YEL, Urine Clarity HAZY H, Urine pH 5.5, Ur Specific [place] 1.025, Urine Protein 30 H, Urine Ketones TRACE H, Urine Nitrite NEG, Urine Bilirubin NEG@ICTO, Urine Urobilinogen 4.0 H, Ur Leukocyte Esterase NEG, Ur Microscopic SEDIMENT EXAMINED, Urine RBC 1-3, Urine WBC 1-3 H, Ur Epithelial Cells FEW, Hyaline Casts MANY H, Urine Hemoglobin NEG, Urine Glucose NEG 02/12/171927: Anion Gap 11, Estimated GFR 16 L, BUN/Creatinine Ratio 20.5, Glucose 72, Lactic Acid 2.2 H, Calcium 8.7, Total Bilirubin 1.9 H, AST 73 H, ALT 41, Alkaline Phosphatase 119, Troponin I 0.06, Dvr-D-Cyauxquccco Pept 30755 H, Total Protein 8.5 H, Albumin 3.6, Globulin 4.9 H, Albumin/Globulin Ratio 0.7 L, PT 14.5 H, INR 1.39 H, CBC w Diff NO MAN DIFF REQ, RBC 4.17 L, MCV 90.2, MCH 28.0, RDW 18.5 H, MPV 10.3, Gran % 77.8 H, Lymphocytes % 8.9 L, Monocytes % 9.1, Eosinophils % 3.3, Basophils % 0.9, Absolute Granulocytes 3.4, Absolute Lymphocytes 0.4 L, Absolute Monocytes 0.4, Absolute Eosinophils 0.1, Absolute Basophils 0, PUBS MCHC 31.1 L, Serum Alcohol < 10.0 Microbiology 02/13 0135 NASOPHARYN: Influenza Virus A & B Rapid Smear - COMP 02/13 2020 BLOOD: Blood Culture - RES 02/13 1928 BLOOD: Blood Culture - RES Assessment/Plan Assessment: Patient is persistently confused, he is unable to follow commands and continues to pull at his bipap mask. Dr. Ju Jacobson discussed patients poor prognosis with his family members whom agreed to make the patient comfortable. Patient is to be continued as comfort measures with hospice evaluation pending. All medications with the exception comfort medications were discontinued. Problem List: -Sepsis -Urinary tract Infection -Acute on chronic hypercarbic respiratory failure -Acute kidney injury on chronic kidney disease -COPD -Atrial Fibrillation -Hypertension -Hepatitis C -Dementia Plan: -General Medicine -Discontinue antibiotics/ home meds -Morphine/Ativan/Scopolamine -Comfort care with Hospice evaluation Problem List: 1. Acute renal insufficiency 2. Urinary tract infection Pain Ratin Pain Location: None Pain Goal: Remain pain free Pain Plan: See assessment Tomorrow's Labs & Rationales: None
--- NOTE | 2017-02-13 09:19 | PN- Att Addend ---
Attending Addendum Attending Brief Note Patient seen and examined. I believe he is imminently dying. When I came in he was extremely agitated, pulling off his BiPAP mask, in severe distress and the nurses were having a hard time controlling him. I reviewed the chart and confirmed with the family and he is comfort measures and given all of this I started morphine subcutaneous when necessary, Ativan subcutaneous when necessary and a scopolamine patch. He lost IV access overnight. He is an 86-year-old with multiple medical problems including chronic respiratory failure on oxygen with COPD, dementia, hypertension, atrial fibrillation, myelodysplastic syndrome who is here with acute on chronic hypoxemic respiratory failure with RYAN on CKD and lactic acidosis. There is been in influenza outbreak at [facility] and the worry is that he may have gotten influenza pneumonia and or a superimposed bacterial infection. He is comfort measures per his son and the RN at [facility] and got transferred to [place] because the doctor that they spoke to overnight was unaware of the comfort measures status. At this point the focus of our care is going to be comfort as he is imminently dying. His respirations are 10-12 and is on the 55% Ventimask. We are only going to give him medications to keep him comfortable and call hospice as I think he would qualify for inpatient hospice care.
--- NOTE | 2017-02-13 10:41 | NUR ---
PATIENT MINIMALLY UNRESPONSIVE. COMPLETE BED BATH GIVEN. ORAL CARE PROVIDED. MD IN TO SEE PATIENT. RR AT 16, HR BOUNDING. WILL CONTINUE TO MONITOR.
--- NOTE | 2017-02-13 11:26 | Event Note ---
See Addendum Event Note Event Note: I sat down and spoke to all 4 of patient's sons together. Zaki the conservator was there along with the 3 other sons. I explained the respiratory failure, the agitation, pulling off of BiPAP and ripping out of the IV, the need to keep him comfortable given his explicit comfort measures and given what we are up against in terms of his renal failure, lung status and other comorbidities. They all agree and at this point I am awaiting the hospice nurse and he will be converted into a hospice admission.
--- NOTE | 2017-02-23 08:23 | Discharge Summary ---
Visit Information Visit Dates Admission Date: 02/12/17 Discharge Date: 02/13/17 Hospital Course Course Attending Physician: MIC MERAZ,KAELA Peterson Primary Care Physician: VALENTE MERAZ,FRANSISCO Peterson Hospital Course: 86 year old man with past medical history significant for myelodysplastic syndrome, COPD on 3.0L O2, Hepatitis C, and Cor pulmonale brought in by ambulance for evaluation of altered mental status. Patient was made comfort measures as of January 05 for his multiple medical problems, however he was continued on his home medications. He is currently a resident of [facility] where a reported Influenza outbreak is currently taking place. Patient has reportedly been seen to be more altered and confused with decreased oral intake in the 24 hours prior to admission. In the ER records reveal that patient was arousable but was not communicating, and was seen to be pulling at the BiPAP mask. Collateral information was obtained from alf staff and [facility]. Review of systems was unobtainable on admission. PMHx: Paroxsysmal Atrial Fibrillatiom, Hypertension, Hyperlipidemia, Diastolic heart failure, COPD on 3.0L home O2, Myelodysplastic Syndrome, Hepatitis C, Cor Pulmonale, dysthymic disorder, depression ED Course: -Vitals: Temp 96.0 - 96.2, HR 68-103, RR 16-18, BP 115-145/56-76, O2 93-96% on 4.5 via BiPAP -Significant Labs: WBC 4.4, Hgb/Hct 11.7/37.6, Plt 88, Na 139, K 5.3, Cl 96, CO2 32, BUN/Cr 76/3.7,T. Bilirubin 1.9, AST/ALT 73/41, Troponin 0.06, BNP 30,700, ABG:pH 7.27 / pCO2 68, pO@ 80, HCO3 30, UTox: positive for benzo -Studies: CXR - basilar opacification likely atelectasis vs infection, CT Head - generalized parenchymal volume loss with prominence of sulci and ventricles -Interventions: Blood cultures x2, Rapid flu negative, Solumedrol 125mg IV, Problem List: -Acute on chronic hypercarbic/hypoxemic respiratory -Acute kidney injury on chronic kidney disease -Lactic acidosis -COPD on 3.0L home o2 -Paroxysmal Atrial Fibrillation -Dementia Plan: Patient was admitted to the general medicine floor as comfort measures per family request. Patient is critically ill and was maintained on only comfort medications. Home medications were held at this time. Hospice evaluation was performed and patient was discharged to inpatient hospice care. Allergies: Coded Allergies: lisinopril (Severe, MOUTH SWELLING 02/12/16) Penicillins (Intermediate, HIVES 02/12/16) lorazepam (HALLUCINATION 02/12/16) Significant Procedures: EXAM TYPE: RAD - XRY-PORTABLE CHEST XRAY IMPRESSION: Limited exam secondary to pulmonary hypoinflation and low lung volumes. Subsegmental atelectasis is present within the lingula and left lung base. Left basilar opacification may reflect atelectasis although superimposed infection cannot be excluded in the appropriate clinical setting. EXAM TYPE: CAT - CT HEAD WO IV CONTRAST IMPRESSION: 1. Limited exam secondary to patient head positioning as well as diffuse motion abnormality which degrades image quality, limiting complete evaluation of the brain. No large acute intraparenchymal hematomas or extra-axial fluid collections. However, smaller intraparenchymal hematomas and extra-axial fluid collections may be missed. 2. Limited evaluation for changes of acute ischemia given the aforementioned exam limitations. Consider repeat head CT head when the patient can better tolerate the exam. 3. Generalized parenchymal volume loss with proportional prominence of the sulci and ventricles. Disposition Summary Disposition Principal Diagnosis: Acute on Chronic Hypoxic Respiratory Failure Additional Diagnosis: Lactic Acidosis Acute kidney injury on Chronic kidney disease Discharge Disposition: Inpatient hospice Discharge Instructions General Discharge Information Code Status: Comfort Care Only Patient's Diet: Regular Diet Patient's Activity: Bedrest Follow-Up Instructions/Appts: Discharge to inpatient hospice Medications at Discharge Discharge Medications: The following medications have been changed: Old: Dronedarone HCl (Multaq) 400 MG TABLET 1 Milligram ORAL TWICE DAILY Qty = 30 New: Dronedarone HCl (Multaq) 400 MG TABLET 1 Tablet ORAL TWICE DAILY Qty = 30 Comments: Last Taken: 12/09/16 Time: 9 AM Copies To: VALENTE MERAZ,FRANSISCO Peterson
== END 2017-02-13 13:28 | disposition hospice, home (50) | DRG 189 ==
LOC: ENRESERVDT → ENRESERVTM → ERH 17:23 → 2NA 22:57 → ERHI 22:57 → 2NA 02-13 00:05
PROVIDERS: Physician Assistant Medical; ADMIT Student in an Organized Health Care Education/Training Program
PROC: 5A09357 Assistance with Respiratory Ventilation, Less than 24 Consecutive Hours, Continuous Positive Airway Pressure (ICD-10-PCS; principal; 2017-02-12)
DX: J96.20 Acute and chronic respiratory failure, unspecified whether with hypoxia or hypercapnia (principal); N17.9 Acute kidney failure, unspecified; D69.6 Thrombocytopenia, unspecified; I50.30 Unspecified diastolic (congestive) heart failure; E87.5 Hyperkalemia; I13.0 Hypertensive heart and chronic kidney disease with heart failure and stage 1 through stage 4 chronic kidney disease, or unspecified chronic kidney disease; C94.6 Myelodysplastic disease, not elsewhere classified; N39.0 Urinary tract infection, site not specified; Z51.5 Encounter for palliative care; I48.0 Paroxysmal atrial fibrillation; J44.9 Chronic obstructive pulmonary disease, unspecified; Z87.891 Personal history of nicotine dependence; Z66 Do not resuscitate; N18.9 Chronic kidney disease, unspecified
CPT/HCPCS: ERO; 36415; 80307; 81001; 82436; 87040; 87804; 87804-59; 93005; 93010; 96374; 99291; G0480; J2280; J2920; J2930; J3490

== ENCOUNTER 2017-02-13 13:32 | Inpatient (IN) | payer OTHER ==
[~2017-02-13 13:32] MED LIST changes: +ACEPHEN650 M1 PR; +ALBUTEROL2.5 MG/3 M INH/SOL; +ALPRAZOLAM0.25 M1 PO; +BISACODYL10 M1 RC; +DEEP SEA44 ML NASB; +FLEET ENEMA133 ML RC; +HYDROXYZINE HCL25 M2 PO; +LASIX20 M1 PO; +MILK OF MA400 MG/52 PO; +Q-PAP325 M1 PO; +Q-TUSSIN100 MG/51 PO
--- NOTE | 2017-02-13 13:35 | NUR ---
PATIENT UNRESPONSIVE. TURNED AND REPOSITION FOR COMFORT. RR AT 32 AND VERY SHALLOOW. MORPHINE GIVEN ORDERED. FAMILY AT BEDSIDE. PASTORAL CARE CALLED IN TO SEE FAMILY.
--- NOTE | 2017-02-13 13:44 | NUR ---
PATIENT ADMITTED TO HOSPICE. TURNED AND REPOSITIONED FOR COMFORT. RESPIRATION AT 24 AND SHALLOWED. PASTORAL CARE IN TO SEE PATIENT. REIKI PERFORMED BY GRADUATE INTERN. WILL CONTINUE TO MONITOR.
--- NOTE | 2017-02-13 19:04 | NUR ---
PT TURNED AND REPOSITIONED, UNRESPONSIVE. PERIODS OF APNEA WITH RR 8. FAMILY TO BEDSIDE. CONT TO MONITOR.
--- NOTE | 2017-02-13 22:34 | NUR ---
PT APPEARS COMFORTABLE. TUENED AND REPOSITIONED. PERIODS OF APNEA PRESENT, RR 8. FAMILY TO BEDSIDE. CONT TO MONITOR.
--- NOTE | 2017-02-14 | NUR ---
PT RR 5, ON 5L NC WITH PERIODS OF APNEA. LOWER EXTREMITIES COLD TO TOUCH DISCOLORED ECCHYMOTIC, BRUISING TO BILATERAL UPPER EXTREMITIES, UPPER EXTREMITIES WARM TO TOUCH, MANCINI IN PLACE, APPEARS TO BE RESTING COMFORTABLY IN NO DISTRESS, MINIMALLY RESPONSIVE TO TOUCH. NO S/S OF AGGITATION OR PAIN. EDUCATION NEEDED AND GIVEN TO PTS "GIRLFRIEND", WHO IS AT BEDSIDE. WILL MONITOR.
--- NOTE | 2017-02-14 01:00 | NUR ---
RR 2 ON 5L NC, O2 SAT 85%, NO PALPABLE RADIAL PULSE, TURBULENT BLOOD FLOW HEARD OVER CAROTID, AUDIBLE HEART SOUNDS FAINT. TURNED AND REPOSITIONED TO RIGHT SIDE. WILL MONITOR.
--- NOTE | 2017-02-14 04:00 | NUR ---
PT RR 2 NO DISTRESS OR DISCOMFORT NOTED. TURNED AND REPOSITIONED Q2HR PRN. WILL MONITOR.
--- NOTE | 2017-02-14 06:52 | NUR ---
TIME OF 0603, PT'S FIANCE/FAMILY AT BEDSIDE AND AWARE. TRIED MULTIPLE ATTEMPTS TO CONTACT CONSERVATOR DAINA WARD WITH NO RESPONSE. PER FAMILY MEMBER, THE SISTER IS GOING TO "WAKE UP DAINA TO LET HIM KNOW".
--- NOTE | 2017-03-15 13:48 | Discharge Summary ---
Visit Information Visit Dates Admission Date: 02/13/17 Discharge Date: 02/14/17 Hospital Course Course Attending Physician: MIC MERAZ,KAELA Peterson Primary Care Physician: VALENTE MERAZ,FRANSISCO Peterson Consulting Request: Consulting Specialty: Geriatric Hospital Course: 86 year old man with past medical history significant for myelodysplastic syndrome, COPD on 3.0L O2, Hepatitis C, and Cor pulmonale brought in by ambulance for evaluation of altered mental status. [place] [facility] his multiple medical problems and continued on his home medications. He was a resident of [facility] where a reported Influenza outbreak is currently taking place. Patient has reportedly been seen to be more altered and confused with decreased oral intake in the 24 hours prior to admission. In the ER records reveal that patient was arousable but was not communicating, and was seen to be pulling at the BiPAP mask. Collateral information was obtained from [facility] staff and [facility]. Review of systems was unobtainable on admission. PMHx: Paroxsysmal Atrial Fibrillatiom, Hypertension, Hyperlipidemia, Diastolic heart failure, COPD on 3.0L home O2, Myelodysplastic Syndrome, Hepatitis C, Cor Pulmonale, dysthymic disorder, depression ED Course: -Vitals: Temp 96.0 - 96.2, HR 68-103, RR 16-18, BP 115-145/56-76, O2 93-96% on 4.5 via BiPAP -Significant Labs: WBC 4.4, Hgb/Hct 11.7/37.6, Plt 88, Na 139, K 5.3, Cl 96, CO2 32, BUN/Cr 76/3.7,T. Bilirubin 1.9, AST/ALT 73/41, Troponin 0.06, BNP 30,700, ABG:pH 7.27 / pCO2 68, pO@ 80, HCO3 30, UTox: positive for benzo -Studies: CXR - basilar opacification likely atelectasis vs infection, CT Head - generalized parenchymal volume loss with prominence of sulci and ventricles -Interventions: Blood cultures x2, Rapid flu negative, Solumedrol 125mg IV, Problem List: -Acute on chronic hypercarbic/hypoxemic respiratory -Acute kidney injury on chronic kidney disease -Lactic acidosis -COPD on 3.0L home o2 -Paroxysmal Atrial Fibrillation -Dementia Plan: Patient was admitted to the general medicine floor as comfort measures per family request. Patient was critically ill and was maintained on only comfort medications. Home medications were held at this time. Hospice evaluation was performed and patient was admitted to inpatient hospice care. Patient was admitted to hospice on February 13 and only those medications to provide comfort and palliation were continued. Including morphine when necessary, Ativan when necessary and a scopolamine patch. Patient on February 14. All of his family were notified and all of his family spent pretty much the whole day with him the day prior to him dying. Allergies: Coded Allergies: lisinopril (Severe, MOUTH SWELLING 02/12/16) Penicillins (Intermediate, HIVES 02/12/16) lorazepam (HALLUCINATION 02/12/16) Disposition Summary Disposition Principal Diagnosis: Acute on chronic hypercarbic/hypoxemic respiratory -Acute kidney injury on chronic kidney disease -Lactic acidosis Additional Diagnosis: -COPD on 3.0L home o2 -Paroxysmal Atrial Fibrillation -Dementia Discharge Disposition: Discharge Instructions General Discharge Information Code Status: Hospice Patient's Diet: n/a Patient's Activity: n/a Follow-Up Instructions/Appts: n/a Copies To: VALENTE MERAZ,FRANSISCO Peterson
== END 2017-02-14 06:03 | disposition expired | DRG 189 ==
LOC: 2NA 13:32
PROVIDERS: ADMIT Internal Medicine
DX: J96.20 Acute and chronic respiratory failure, unspecified whether with hypoxia or hypercapnia (principal); I46.9 Cardiac arrest, cause unspecified; J44.9 Chronic obstructive pulmonary disease, unspecified; Z51.5 Encounter for palliative care
CPT/HCPCS: 2NAP